=== PATIENT | female | born 1955 | race Caucasian/White ===

== ENCOUNTER 2017-01-19 21:22 | Emergency (ER) | payer OTHER ==
--- NOTE | 2017-01-19 21:47 | PDOC ---
History of Present Illness - General Chief Complaint: Injury Stated Complaint: FALL Time Seen by Provider: 01/19/17 21:35 History Source: Patient Exam Limitations: No Limitations - History of Present Illness Initial Comments: 01/19/17 21:59 61-year-old female Efe HECK to the emergency department [facility]. Patient states she slipped on a patch of water on the floor which caused her to hit her right occipital head against the wall but denied loss of consciousness, dizziness, lightheadedness, headaches, visual disturbance, neck pains, chest pain, shortness of breath, abdominal pains, extremity numbness or tingling sensation. Patient states she has no complaints. Patient had one glass of wine 4 hours ago. Patient is loud and boisterous in the emergency department. Patient insists on going out for a cigarette break. I've advised the patient that due to her one glass of wine this evening and her fall, she will need a CAT scan of her head without contrast. Occurred: reports: just prior to arrival Pain Location: reports: none Method of Injury: Yes: fall ([facility]) Past History - Past Medical History Allergies/Adverse Reactions: Allergies Allergy/AdvReac Type Severity Reaction Status Date / Time Penicillins Allergy Unknown Hives Verified 01/19/17 21:53 Home Medications: Ambulatory Orders Unobtainable [Unobtainable] 01/19/17 Anemia: No Asthma: No Cancer: No Cardiac Disorders: No CVA: No COPD: No CHF: No Dementia: No Diabetes: No GI Disorders: No Disorders: No HTN: No Hypercholesterolemia: No Kidney Stones: No Liver Disease: No Suicide Attempt (Hx): No Seizures: Yes Thyroid Disease: No - Surgical History Abdominal Surgery: Yes (whipple for benign pancreatic pseudocyst) Appendectomy: Yes (AT AGE 18 YRS) Cardiac Surgery: No Cholecystectomy: No Lung Surgery: No Neurologic Surgery: No Orthopedic Surgery: No - Reproductive History PID: No - Psycho/Social/Smoking Cessation Hx Anxiety: Yes Suicidal Ideation: No Smoking Status: Yes Smoking History: Current every day smoker Have you smoked in the past 12 months: Yes Number of Cigarettes Smoked Daily: 50 'Breaking Loose' booklet given: 05/27/15 Hx Alcohol Use: Yes Drug/Substance Use Hx: No Substance Use Type: Alcohol Hx Substance Use Treatment: Yes Trauma Specific PMHX - Complaint Specific PMHX Arthritis: Yes (mid back) Review of Systems - Review of Systems Able to Perform ROS?: Yes Comments:: 01/19/17 22:02 CONSTITUTIONAL: Absent: fever, chills, diaphoresis, generalized weakness, malaise, loss of appetite HEENT: Absent: rhinorrhea, nasal congestion, throat pain, throat swelling, difficulty swallowing, mouth swelling, ear pain, eye pain, visual Changes CARDIOVASCULAR: Absent: chest pain, loss of consciousness, palpitations, irregular heart rate, peripheral edema RESPIRATORY: Absent: cough, shortness of breath, dyspnea with exertion, orthopnea, wheezing, stridor, hemoptysis GASTROINTESTINAL: Absent: abdominal pain, abdominal distension, nausea, vomiting, diarrhea, constipation, melena, hematochezia GENITOURINARY: Absent: dysuria, frequency, urgency, hesitancy, hematuria, flank pain, genital pain MUSCULOSKELETAL: Absent: myalgia, arthralgia, joint swelling SKIN: Absent: rash, itching, pallor HEMATOLOGIC/IMMUNOLOGIC: Absent: easy bleeding, easy bruising, lymphadenopathy, frequent infections ENDOCRINE: Absent: unexplained weight gain, unexplained weight loss, heat intolerance, cold intolerance NEUROLOGIC: Absent: headache, focal weakness or paresthesias, dizziness, unsteady gait, seizure, mental status changes, bladder or bowel incontinence PSYCHIATRIC: Absent: anxiety, depression, suicidal or homicidal ideation, hallucinations. Is the patient limited Thai proficient: No *Physical Exam - Physical Exam Comments: 01/19/17 22:02 GENERAL: Well developed, well nourished. Awake and alert. No acute distress. HEENT: Normocephalic, atraumatic. PERRLA, EOMI. No conjunctival pallor. Sclera are non- icteric. Moist mucous membranes. Oropharynx is clear. NECK: Supple. Full ROM. No JVD. Carotid pulses 2+ and symmetric, without bruits. No thyromegaly. No lymphadenopathy. CARDIOVASCULAR: Regular rate and rhythm. No murmurs, rubs, or gallops. Distal pulses are 2+ and symmetric. PULMONARY: No evidence of respiratory distress. Lungs clear to auscultation bilaterally. No wheezing, rales or rhonchi. ABDOMINAL: Soft. Non-tender. Non-distended. No rebound or guarding. No organomegaly. Normoactive bowel sounds. MUSCULOSKELETAL Normal range of motion at all joints. No bony deformities or tenderness. No CVA tenderness. EXTREMITIES: No cyanosis. No clubbing. No edema. No calf tenderness. SKIN: Warm and dry. Normal capillary refill. No rashes. No jaundice. NEUROLOGICAL: Left scalp hematoma Alert, awake, appropriate. Cranial nerves 2-12 intact. No deficits to light touch and temperature in face, upper extremities and lower extremities. No motor deficits in the in face, upper extremities and lower extremities. Normoreflexic in the upper and lower extremities. Normal speech. Toes are down- going bilaterally. Gait is normal without ataxia. PSYCHIATRIC: Cooperative. Good eye contact. Appropriate mood and affect. *DC/Admit/Observation/Transfer Diagnosis at time of Disposition: Closed head injury Qualifiers: Encounter type: initial encounter Qualified Code(s): S09.90XA - Unspecified injury of head, initial encounter - Discharge Dispostion Disposition: HOME Condition at time of disposition: Stable Admit: No - Referrals Referrals: Anish Rodrigues MD [Staff Physician] - - Patient Instructions Printed Discharge Instructions: DI for Closed Head Injury Additional Instructions: Rest Tylenol as needed for pain Return to the ER for severe/persistent or worsening symptoms
[2017-01-19 21:53] VITALS: BP 133/86; PULSE 80; TEMP 97.6; BMI 22.9
== END 2017-01-20 04:17 | disposition home or self-care (01) ==
LOC: JER 21:22
DX: S09.90XA Unspecified injury of head, initial encounter (principal); W01.0XXA Fall on same level from slipping, tripping and stumbling without subsequent striking against object, initial encounter; Y93.01 Activity, walking, marching and hiking; Y92.89 Other specified places as the place of occurrence of the external cause; F17.210 Nicotine dependence, cigarettes, uncomplicated
CPT/HCPCS: 70450-TC; 99283-25

== ENCOUNTER 2017-01-23 02:35 | Emergency (ER) | payer OTHER ==
[2017-01-23] MEDS ORDERED: OXYCODONE/APAP 5/325MG COMBO TABLET PO ONE (03:36)
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
[2017-01-23] MEDS ORDERED: OXYCODONE/APAP 5/325MG COMBO TABLET ONE (03:46)
[2017-01-23 04:38] VITALS: BP 113/70; PULSE 64; TEMP 97.8; BMI 25.0
== END 2017-01-23 04:40 | disposition home or self-care (01) ==
LOC: JER 02:35
DX: M54.6 Pain in thoracic spine (principal); G89.29 Other chronic pain; C95.10 Chronic leukemia of unspecified cell type not having achieved remission; F17.210 Nicotine dependence, cigarettes, uncomplicated
CPT/HCPCS: 99282-25

== ENCOUNTER 2017-01-23 12:47 | Emergency (ER) | payer OTHER ==
[2017-01-23 12:53] VITALS: BP 123/75; PULSE 90; TEMP 97.9; BMI 25.0
--- NOTE | 2017-01-23 13:43 | PDOC ---
History of Present Illness - General Chief Complaint: Back Pain Stated Complaint: PAIN Time Seen by Provider: 01/23/17 13:20 History Source: Patient - History of Present Illness Occurred: reports: other Pain Location: reports: back Past History - Past Medical History Allergies/Adverse Reactions: Allergies Allergy/AdvReac Type Severity Reaction Status Date / Time Penicillins Allergy Unknown Hives Verified 01/23/17 12:53 Home Medications: Ambulatory Orders Hydroxyzine HCl [Atarax -] 25 mg PO QID 01/23/17 Anemia: No Asthma: No Cancer: Yes (MYLOFIBROSIS LEUKEMIA) Cardiac Disorders: No CVA: No COPD: No CHF: No Dementia: No Diabetes: No GI Disorders: Yes (PEPTIC ULCER) Disorders: No HTN: No Hypercholesterolemia: No Kidney Stones: No Liver Disease: Yes (HEP C) Suicide Attempt (Hx): No Seizures: Yes Thyroid Disease: No - Surgical History Abdominal Surgery: Yes (whipple for benign pancreatic pseudocyst) Appendectomy: Yes (AT AGE 18 YRS) Cardiac Surgery: No Cholecystectomy: Yes Lung Surgery: No Neurologic Surgery: No Orthopedic Surgery: No - Reproductive History PID: No - Psycho/Social/Smoking Cessation Hx Anxiety: Yes Suicidal Ideation: No Smoking Status: Yes Smoking History: Current every day smoker Have you smoked in the past 12 months: Yes Number of Cigarettes Smoked Daily: 10 Information on smoking cessation initiated: No 'Breaking Loose' booklet given: 05/27/15 Hx Alcohol Use: Yes Drug/Substance Use Hx: No Substance Use Type: Alcohol Hx Substance Use Treatment: Yes Trauma Specific PMHX - Complaint Specific PMHX Arthritis: Yes (mid back) Review of Systems - Review of Systems Constitutional: No: Chills, Fever Musculoskeletal: Yes: Back Pain. No: Neck Pain Neurological: No: Numbness, Tingling, Weakness *Physical Exam - Vital Signs Last Vital Signs Temp Pulse Resp BP Pulse Ox 97.9 F 90 16 123/75 95 01/23/17 12:49 01/23/17 12:49 01/23/17 12:49 01/23/17 12:49 01/23/17 12:49 - Physical Exam Comments: 01/23/17 14:04 Pt well appearing and ambulating in ED General Appearance: Yes: Appropriately Dressed. No: Apparent Distress HEENT: positive: Normal Voice Neck: positive: Supple Respiratory/Chest: negative: Respiratory Distress Gastrointestinal/Abdominal: positive: Soft. negative: Tender Musculoskeletal: negative: CVA Tenderness, Vertebral Tenderness Extremity: positive: Normal Inspection Integumentary: positive: Dry, Warm Neurologic: positive: Fully Oriented, Alert, Normal Mood/Affect, Motor Strength /5 Medical Decision Making - Medical Decision Making 01/23/17 13:50 61-year-old female, history of leukemia, chronic back pain, f/u with pain management, on percocet, here requesting refill for her usual lower back pain per pt. Pt denies lower extremity weakness, saddle anesthesia or bowel or bladder incontinence. Of note, patient was seen in the ED several hours ago for same and was discharged and instructed to follow-up with her pain management doctor. Was not given any refills. Pt was Istop by me with multiple rxs for percocet written by different providers, including a rx for 112 tabs of percocet written for pt on 01/11/17 for a 28 day supply. When confronted with information, pt now states she has ran out of meds. I explained to patient that since she has a pain management agreement with her pain management doctor, that we are not allowed to refill her narcotics from the ED. Patient verbalized understanding and was discharged in stable condition to f/ u with pain doc 01/23/17 14:05 *DC/Admit/Observation/Transfer Diagnosis at time of Disposition: Chronic back pain Qualifiers: Back pain location: low back pain Back pain laterality: bilateral Sciatica presence: without sciatica Qualified Code(s): M54.5 - Low back pain - Discharge Dispostion Disposition: HOME Condition at time of disposition: Good - Patient Instructions Additional Instructions: Please follow-up with your specialist for your chronic pain medications. Once you have a pain agreement with a specialist, the ED is not allowed to refill your chronic pain meds
== END 2017-01-23 14:04 | disposition home or self-care (01) ==
LOC: JERFT 12:47
DX: M54.5 Low back pain (principal); G89.29 Other chronic pain; F17.210 Nicotine dependence, cigarettes, uncomplicated; C95.10 Chronic leukemia of unspecified cell type not having achieved remission
CPT/HCPCS: 99281-25

== ENCOUNTER 2018-03-09 14:58 | Emergency (ER) | payer OTHER ==
[2018-03-09 15:06] VITALS: BP 145/56; PULSE 90; TEMP 98.3; BMI 22.6
--- NOTE | 2018-03-09 15:25 | PDOC ---
History of Present Illness - General Chief Complaint: RX Refill Stated Complaint: ABD PAIN Time Seen by Provider: 03/09/18 15:06 History Source: Patient Exam Limitations: No Limitations - History of Present Illness Initial Comments: 03/09/18 15:20 62 yr female brought in by EMS for med refill. Pt states she was suppost to have a delivery from her [email or web address] pharmacy today but they have not shown up, and the patient is unable to reach [facility] to verify the delivery. Pt is asking to be given seroquel, and her pain meds in the ER. Pt is followed by pain management for chronic pain. 03/09/18 15:26 Past History - Past Medical History Allergies/Adverse Reactions: Allergies Allergy/AdvReac Type Severity Reaction Status Date / Time Penicillins Allergy Unknown Hives Verified 03/09/18 15:06 Home Medications: Ambulatory Orders Quetiapine Fumarate [Seroquel -] 200 mg PO HS 03/09/18 Anemia: No Asthma: No Cancer: Yes (MYLOFIBROSIS LEUKEMIA) Cardiac Disorders: No CVA: No COPD: No CHF: No Dementia: No Diabetes: No GI Disorders: Yes (PEPTIC ULCER) Disorders: No HTN: No Hypercholesterolemia: No Kidney Stones: No Liver Disease: Yes (HEP C) Seizures: Yes Thyroid Disease: No - Surgical History Abdominal Surgery: Yes (whipple for benign pancreatic pseudocyst) Appendectomy: Yes (AT AGE 18 YRS) Cardiac Surgery: No Cholecystectomy: Yes Lung Surgery: No Neurologic Surgery: No Orthopedic Surgery: No - Reproductive History PID: No - Suicide/Smoking/Psychosocial Hx Smoking Status: Yes Smoking History: Never smoked Have you smoked in the past 12 months: No Number of Cigarettes Smoked Daily: 10 'Breaking Loose' booklet given: 05/27/15 Hx Alcohol Use: No Drug/Substance Use Hx: No Substance Use Type: Alcohol Hx Substance Use Treatment: Yes Review of Systems - Review of Systems Able to Perform ROS?: Yes Is the patient limited Slovak proficient: No Constitutional: No: Symptoms Reported HEENTM: No: Symptoms Reported Respiratory: No: Symptoms reported Cardiac (ROS): No: Symptoms Reported ABD/GI: No: Symptoms Reported : No: Symptoms Reported Musculoskeletal: No: Symptoms Reported *Physical Exam - Vital Signs Last Vital Signs Temp Pulse Resp BP Pulse Ox 98.3 F 90 18 145/56 99 03/09/18 15:02 03/09/18 15:02 03/09/18 15:02 03/09/18 15:02 03/09/18 15:02 - Physical Exam General Appearance: Yes: Nourished, Appropriately Dressed HEENT: positive: EOMI, SHAI, Normal ENT Inspection Neck: positive: Supple. negative: Tender Respiratory/Chest: positive: Lungs Clear, Normal Breath Sounds. negative: Chest Tender Integumentary: positive: Normal Color, Dry, Warm Neurologic: positive: Fully Oriented, Alert, Normal Mood/Affect, Normal Response , Motor Strength 12/15 Medical Decision Making - Medical Decision Making 03/09/18 15:28 cc: med refill pt states her delivery of meds has not arrived and she came to ER asking to be given the medications in the ER, pt does not want a prescription sent . Pt is unable to recall the name of her pain meds pt states she took seroquel last night I have discussed with patient to call her doctor as well as call [employer] to track the shipment, we are unable to dispense medication in the ER. pt decided to leave the ER without discharge inst *DC/Admit/Observation/Transfer Diagnosis at time of Disposition: No mechanism for timely refill of medication - Discharge Dispostion Disposition: HOME Condition at time of disposition: Good - Referrals Referrals: Teresa Casey MD [Primary Care Provider] - - Patient Instructions Additional Instructions: please call your physician to discuss options if your delivery does not come today for your medication - Post Discharge Activity
== END 2018-03-09 15:40 | disposition home or self-care (01) ==
LOC: JERFT 14:58
DX: Z76.0 Encounter for issue of repeat prescription (principal)
CPT/HCPCS: 99281-25

== ENCOUNTER 2018-07-09 11:45 | Emergency (ER) | payer OTHER ==
[2018-07-09 11:54] VITALS: BP 101/64; PULSE 85; TEMP 97.9; BMI 22.6
--- NOTE | 2018-07-09 13:52 | PDOC ---
History of Present Illness - General Chief Complaint: Injury Stated Complaint: FALL/HIP PAIN Time Seen by Provider: 07/09/18 13:21 History Source: Patient Exam Limitations: No Limitations - History of Present Illness Initial Comments: 07/09/18 13:44 62 yo female pmh of chronic back pain (on 40mg percocet daily) leukemia (on PO chemo), prior alcohol dependance, pancreatitis, HCV, depression, anxiety, bipolar (on seroquel) presents to the ED with right hip pain. Patient is not a reliable historian and hr story is scattered. Admits to not taking her psych medications consistently. Complains of difficulty ambulating after "[facility] made me walk home with pins in my leg yesterday." States she slipped and fell hitting her right elbow and right hip on her way home yesterday and now has pain with all ROM and weight bearing of the right hip. Past History - Past Medical History Allergies/Adverse Reactions: Allergies Allergy/AdvReac Type Severity Reaction Status Date / Time Penicillins Allergy Unknown Hives Verified 03/09/18 15:06 Home Medications: Ambulatory Orders Quetiapine Fumarate [Seroquel -] 200 mg PO HS 03/09/18 Anemia: No Asthma: No Cancer: Yes (MYLOFIBROSIS LEUKEMIA) Cardiac Disorders: No CVA: No COPD: No CHF: No Dementia: No Diabetes: No GI Disorders: Yes (PEPTIC ULCER) Disorders: No HTN: No Hypercholesterolemia: No Kidney Stones: No Liver Disease: Yes (HEP C) Seizures: Yes Thyroid Disease: No - Surgical History Abdominal Surgery: Yes (whipple for benign pancreatic pseudocyst) Appendectomy: Yes (AT AGE 18 YRS) Cardiac Surgery: No Cholecystectomy: Yes Lung Surgery: No Neurologic Surgery: No Orthopedic Surgery: No - Reproductive History PID: No - Suicide/Smoking/Psychosocial Hx Smoking Status: Yes Smoking History: Current every day smoker Have you smoked in the past 12 months: No Number of Cigarettes Smoked Daily: 10 Information on smoking cessation initiated: No 'Breaking Loose' booklet given: 05/27/15 Hx Alcohol Use: No Drug/Substance Use Hx: No Substance Use Type: Alcohol Hx Substance Use Treatment: Yes *Physical Exam - Vital Signs Last Vital Signs Temp Pulse Resp BP Pulse Ox 97.9 F 85 16 101/64 98 07/09/18 11:51 07/09/18 11:51 07/09/18 11:51 07/09/18 11:51 07/09/18 11:51 Moderate Sedation - Procedure Monitoring Vital Signs: Procedure Monitoring Vital Signs Temperature 97.9 F 07/09/18 11:51 Pulse Rate 85 07/09/18 11:51 Respiratory Rate 16 07/09/18 11:51 Blood Pressure 101/64 07/09/18 11:51 O2 Sat by Pulse Oximetry (%) 98 07/09/18 11:51 Medical Decision Making - Medical Decision Making 07/09/18 15:16 62 yo female pmh right total hip replacement with recent fall and right hip pain. Pt states she is unable to ambulate but in the ED is seen ambulating without instability. Received home dose of percocet 5-325 and seroquel. Right hip/pelvis and femur x ray shows non displaced right hip hardware with fractures Patient D/C home with PCP follow up and strict return precautions *DC/Admit/Observation/Transfer Diagnosis at time of Disposition: Hip pain Qualifiers: Laterality: right Qualified Code(s): M25.551 - Pain in right hip - Discharge Dispostion Disposition: HOME Condition at time of disposition: Stable Decision to Admit order: No - Referrals Referrals: Teresa Casey MD [Primary Care Provider] - - Patient Instructions Printed Discharge Instructions: How to Prevent Falls, DI for Hip Pain Additional Instructions: Please follow up with your Primary Care Doctor within the next 24-48 hours for your hip pain. Return to the emergency room for new or worsening symptoms including but not limited to: inability to walk, severe pain with weakness or sensory changes in your right thigh and leg, new fall. Continue taking your prescribed percocet for pain. Thank you - Post Discharge Activity
[2018-07-09] MEDS ORDERED: QUEtiapine FUMARATE 100 MG TABLET (FP) ONE (14:14)
--- NOTE | 2018-07-09 14:30 | PDOC ---
Attending Attestation - Resident Resident Name: Odin Montez - ED Attending Attestation I have performed the following: I have examined & evaluated the patient, The case was reviewed & discussed with the resident, I agree w/resident's findings & plan - HPI HPI: 07/09/18 14:28 62-year-old female presents for additional evaluation/second opinion of right hip pain status post trip and fall last night. Patient tripped on an uneven sidewalk, landing on her right elbow and right hip, no head injury or loss of consciousness. The patient presented to [facility] ED weren't x-ray of the right hip was performed and she was discharged. Presents now complaining of persistent pain to the right hip and difficulty ambulating. At baseline, patient ambulates with cane/walker secondary to history of right hip fracture status post surgical repair. No other complaints, denies any headache or right elbow pain, no motor or sensory deficit. - Physicial Exam PE: 07/09/18 14:29 Vital signs normal Slightly unkempt, sitting in wheelchair. Initially aggressive with staff, now more compliant Exam is atraumatic except for: Bruising along the right elbow without focal bony tenderness, no joint effusion, full range of motion with full strength, neurovascularly intact. Right hip tender to palpation laterally without bruising or soft tissue swelling, healed incisional scar. - Medical Decision Making 07/09/18 14:30 62-year-old female with mechanical trip and fall last night, right elbow and right hip injury. Contusion to right elbow without evidence of fracture or dislocation, neurovascularly intact. Persistent tenderness and pain with ambulation of the right hip, rule out occult fracture. Repeat right hip x-ray, if negative will perform CT Pain control Reassess
== END 2018-07-09 16:45 | disposition home or self-care (01) ==
LOC: JERFT 11:45 → JER 11:45
DX: M25.551 Pain in right hip (principal); Z96.641 Presence of right artificial hip joint; M54.5 Low back pain; C94.80 Other specified leukemias not having achieved remission; B18.2 Chronic viral hepatitis C; F31.9 Bipolar disorder, unspecified; F41.8 Other specified anxiety disorders; Z86.69 Personal history of other diseases of the nervous system and sense organs
CPT/HCPCS: 73523-TC-FY; 73552-TC-RT-FY; 99281-25

== ENCOUNTER → 2018-07-10 | Emergency (ER) | payer OTHER ==
[2018-07-10 13:45] VITALS: BP 125/83; PULSE 99; TEMP 98.2; BMI 21.1
--- NOTE | 2018-07-10 17:01 | PDOC ---
History of Present Illness <Lacey Emmanuel - Last Filed: 07/10/18 17:56> - General History Source: Patient Exam Limitations: No Limitations - History of Present Illness Initial Comments: 07/10/18 17:23 62 year old female with PMH leukemia, HCV, depression, anxiety, bipolar disorder , arthritis, pancreatitis, chronic low back pain presented to ED for right hip pain since yesterday. Pt reported she tripped and fell yesterday because of slippery ice, falling onto her right hip and right elbow. She was seen and evaluated in [facility] ED yesterday, right hip and right femur XR negative for acute fracture/dislocation. She stated that she usually takes 2 percocet every 6 hours for her arthritis and leukemia pain, but that she ran out two weeks ago because her oncologist only writes her a prescription for 2 weeks at a time. <Celi Santiago - Last Filed: 07/10/18 19:01> - General Chief Complaint: Back Pain Stated Complaint: BACK PAIN Time Seen by Provider: 07/10/18 17:00 Past History <Lacey Emmanuel - Last Filed: 07/10/18 17:56> - Past Medical History Anemia: No Asthma: No Cancer: Yes (MYLOFIBROSIS LEUKEMIA) Cardiac Disorders: No CVA: No COPD: No CHF: No Dementia: No Diabetes: No GI Disorders: Yes (PEPTIC ULCER) Disorders: No HTN: No Hypercholesterolemia: No Kidney Stones: No Liver Disease: Yes (HEP C) Seizures: Yes Thyroid Disease: No - Surgical History Abdominal Surgery: Yes (whipple for benign pancreatic pseudocyst) Appendectomy: Yes (AT AGE 18 YRS) Cardiac Surgery: No Cholecystectomy: Yes Lung Surgery: No Neurologic Surgery: No Orthopedic Surgery: No - Reproductive History PID: No - Suicide/Smoking/Psychosocial Hx Smoking Status: Yes Smoking History: Current every day smoker Have you smoked in the past 12 months: No Number of Cigarettes Smoked Daily: 10 Information on smoking cessation initiated: Yes 'Breaking Loose' booklet given: 05/27/15 Hx Alcohol Use: No Drug/Substance Use Hx: No Substance Use Type: Alcohol Hx Substance Use Treatment: Yes <Celi Santiago - Last Filed: 07/10/18 19:01> - Past Medical History Allergies/Adverse Reactions: Allergies Allergy/AdvReac Type Severity Reaction Status Date / Time Penicillins Allergy Unknown Hives Verified 07/10/18 13:45 Home Medications: Ambulatory Orders Quetiapine Fumarate [Seroquel -] 200 mg PO HS 03/09/18 Oxycodone HCl/Acetaminophen [Percocet 5-325 mg Tablet] 1 tab PO Q6H PRN #3 tablet MDD 4 tabs a day 07/10/18 Review of Systems - Review of Systems Able to Perform ROS?: Yes Comments:: 07/10/18 17:35 General: denied fever, chills, night sweats, generalized weakness. HEENT: denied sore throat, rhinorrhea, ear pain. Heart: denied chest pain, palpitations, syncope, lower extremity swelling, diaphoresis. Respiratory: denied shortness of breath, cough, sputum production, hemoptysis. Abdomen: denied abdominal pain, nausea, vomiting, diarrhea, constipation, blood in stool. : denied dysuria, increased urinary frequency, hematuria, urinary incontinence , flank pain. Back: denied back pain. Musculoskeletal: admitted to right hip pain. Neurological: denied headache, dizziness, numbness, tingling, weakness. Skin: denied rash, laceration, abrasion. <Celi Santiago - Last Filed: 07/10/18 19:01> *Physical Exam - Vital Signs Last Vital Signs Temp Pulse Resp BP Pulse Ox 98.2 F 99 H 18 125/83 95 07/10/18 13:40 07/10/18 13:40 07/10/18 13:40 07/10/18 13:40 07/10/18 13:40 <Lacey Emmanuel - Last Filed: 07/10/18 17:56> - Vital Signs Last Vital Signs Temp Pulse Resp BP Pulse Ox 98.2 F 99 H 18 125/83 95 07/10/18 13:40 07/10/18 13:40 07/10/18 13:40 07/10/18 13:40 07/10/18 13:40 - Physical Exam Comments: 07/10/18 17:32 Constitutional: Well-nourished, Well-developed, appearing stated age. HEENT: head is normocephalic, atraumatic. EOMI. PERRLA. Neck: supple. Full ROM. Heart: regular rhythm. no murmurs, rubs or gallops. Lungs: clear to auscultation bilaterally. no crackles, rhonchi or wheezing. no stridor. Abdomen: soft, nontender. normal bowel sounds. no rebound, guarding, masses. Hips: tenderness to palpation of right hip. Extremities: 2+ DSP pulse bilaterally. 2+ radial pulse bilaterally. pt is able to bear weight and walk unassisted. full sensation to bilateral lower extremities. No lower extremity edema. full ROM right elbow, no swelling. Neurological: CN 2-12 grossly intact. Moves all four extremities. Psych: awake, alert, oriented x3. Follows commands. Answers questions appropriately. <Celi Santiago - Last Filed: 07/10/18 19:01> Moderate Sedation - Procedure Monitoring Vital Signs: Procedure Monitoring Vital Signs Temperature 98.2 F 07/10/18 13:40 Pulse Rate 99 H 07/10/18 13:40 Respiratory Rate 18 07/10/18 13:40 Blood Pressure 125/83 07/10/18 13:40 O2 Sat by Pulse Oximetry (%) 95 07/10/18 13:40 <Lacey Emmanuel - Last Filed: 07/10/18 17:56> - Procedure Monitoring Vital Signs: Procedure Monitoring Vital Signs Temperature 98.2 F 07/10/18 13:40 Pulse Rate 99 H 07/10/18 13:40 Respiratory Rate 18 07/10/18 13:40 Blood Pressure 125/83 07/10/18 13:40 O2 Sat by Pulse Oximetry (%) 95 07/10/18 13:40 <Celi Santiago - Last Filed: 07/10/18 19:01> ED Treatment Course - Medications Given in the ED: ED Medications Discontinued Medications Generic Name Dose Route Start Last Admin Trade Name Freq PRN Reason Stop Dose Admin Oxycodone/Acetaminophen 1 combo 07/10/18 17:40 07/10/18 17:45 Percocet 5/325 - PO 07/10/18 17:41 1 combo ONCE ONE Administration <Lacey Emmanuel - Last Filed: 07/10/18 17:56> Medical Decision Making - Medical Decision Making 07/10/18 17:32 62 year old female with above PMH presented for continuing right hip pain s/p trip and fall yesterday. Initial Vital Signs Temp Pulse Resp BP Pulse Ox 98.2 F 99 H 18 125/83 95 07/10/18 13:40 07/10/18 13:40 07/10/18 13:40 07/10/18 13:40 07/10/18 13:40 Afebrile. No tachycardia. No tachypnea. No hypotension. No hypoxia on room air. Continuing right hip pain and reported difficulty ambulating concerning for fracture missed on prior XR. Pt was offered CT of right hip and refused. Pt stated she just wants pain control. 1 percocet ordered. Will observe. Will prescribe 3 percocets for patient to use until she is seen and evaluated by her oncologist, who prescribes her home percocet. Pt stated she will follow up with her doctor for further pain management. 07/10/18 18:07 Pt eloped after being medicated prior to discharge. <Celi Santiago - Last Filed: 07/10/18 19:01> *DC/Admit/Observation/Transfer - Discharge Dispostion Decision to Admit order: No <Lacey Emmanuel - Last Filed: 07/10/18 17:56> - Discharge Dispostion Decision to Admit order: No <Celi Santiago - Last Filed: 07/10/18 19:01> Diagnosis at time of Disposition: Hip pain - Discharge Dispostion Disposition: ELOPED Condition at time of disposition: Stable - Prescriptions Prescriptions: Oxycodone HCl/Acetaminophen [Percocet 5-325 mg Tablet] 1 tab PO Q6H PRN #3 tablet MDD 4 tabs a day PRN Reason: Pain - Referrals Referrals: Rayo Bobby MD [Staff Physician] - - Patient Instructions Printed Discharge Instructions: DI for Hip Pain Additional Instructions: Please call your PMD in the morning to arrange for follow-up. Please follow up with the orthopedist. Please take all medication as prescribed. As discussed your may need further imaging of your hip (which you did not want to do today) for further evaluation of your hip pain.
--- NOTE | 2018-07-10 17:16 | PDOC ---
Attending Attestation - HPI HPI: 07/10/18 17:52 The patient is a 62-year-old female with past medical history significant for Myelofibrosis leukemia, HCV, depression, anxiety, bipolar disorder, arthritis, pancreatitis presents to the emergency department with pain. The patient reports she suffered a fall on Sunday when she was crossing the street. The patient states she fell on her R. elbow and hip. The patient was seen at the ED on 07/09/2018, where she had imaging done with unremarkable for dislocation and fractures. The patient presents secondary to pain, states she ran out of pain medication several days back. The patient is requesting to have pain medication. The patient reports she takes 325 mg of Oxycodone with Tylenol for pain management. Denies fever, chills, back pain, urinary/bowel incontinence. Allergies: Penicillins Social history: 7 cigarettes daily since the age 12 Alcohol use reported. Surgical history: Appendectomy, Cholecystectomy, Whipple for benign pancreatic pseudocyst, and R. hip replacement (w/2 screws) PCP: Teresa Casey MD - Physicial Exam PE: 07/10/18 17:58 GENERAL: Awake, alert, and fully oriented, in no acute distress HEAD: No signs of trauma EYES: PERRLA, EOMI, sclera anicteric, conjunctiva clear ENT: Auricles normal inspection, hearing grossly normal, nares patent, oropharynx clear without exudates. Moist mucosa NECK: Normal ROM, supple, no lymphadenopathy, JVD, or masses LUNGS: +Smokers cough. Breath sounds equal, clear to auscultation bilaterally. No wheezes, and no crackles HEART: Regular rate and rhythm, normal S1 and S2, no murmurs, rubs or gallops ABDOMEN: Soft, nontender, normoactive bowel sounds. No guarding, no rebound. No masses EXTREMITIES: No midline CT or L spine tenderness, well healed R. lateral hip without fluctuance or drainage of the area without ecchymosis. Normal range of motion, no edema. No clubbing or cyanosis. No cords, erythema, or tenderness NEUROLOGICAL: Cranial nerves II through XII grossly intact. Normal speech, ambulated with a limp. Neurovascularly intact in the legs. SKIN: Warm, Dry, normal turgor, no rashes or lesions noted. - Medical Decision Making 07/10/18 17:40 The patient was informed of the risk and was advised to get a CT imaging of the hip. The patient refused the CT imaging of the hip. The patient state she wants 3 tablets of pain medication and wants to be discharged home. The patient is made aware of the risk. The patient states she will call her PCP and oncologist to follow up. The patient is instructed to return to the ER if the pain worsens. 07/10/18 17:59 Documentation prepared by Nguyen Patton, acting as medical insurance claims specialist for Lacey Emmanuel DO. <Nguyen Patton - Last Filed: 07/10/18 17:58> - Resident Resident Name: Celi Santiago - ED Attending Attestation I have performed the following: I have examined & evaluated the patient, The case was reviewed & discussed with the resident, I agree w/resident's findings & plan, Exceptions are as noted - Medical Decision Making 07/10/18 17:16 I, Dr. Lacey Emmanuel DO, attest that this document has been prepared under my direction and personally reviewed by me in its entirety. I further attest, that it accurately reflects all work, treatment, procedures and medical decision -making performed by me. 07/10/18 17:59 a/p: 62yo male with a mechanical fall on sunday - had imaging that was negative for hip fracture -still with pain to right hip -ran out of percocet and requesting 3 tabs for pain control -pt ambulates with a limp, but can ambulate -discussed CT imaging in detail with the patient tonight - but she refuses imaging -pt denies back pain -no loss of control or her bowel or bladder -no paresthesias -pain to R hip -no signs/symptoms of caude equina- no midline ttp, no step offs or deformities -discussed follow up with orthopedics -pt states all she wants is percocet for pain and will call her PMD/oncologist in the AM to arrange for followup -neuro intact <Lacey Emmanuel - Last Filed: 07/10/18 18:01>
== END | disposition home or self-care (01) ==
LOC: JER 13:38
DX: M25.551 Pain in right hip (principal); M54.5 Low back pain; G89.29 Other chronic pain
CPT/HCPCS: 99281-25

== ENCOUNTER 2018-09-10 18:00 | Emergency (ER) | payer OTHER ==
[2018-09-10 18:26] VITALS: TEMP 98.5; BMI 20.4
--- NOTE | 2018-09-10 19:26 | PDOC ---
Attending Attestation - HPI HPI: 09/10/18 20:15 The patient is a 63 year old female, with a significant past medical history of Myelofibrosis leukemia, HCV, depression, anxiety, bipolar disorder, arthritis, and pancreatitis who presents to the emergency department via EMS complaining of lower back pain due to a fall. The patient is unable to provide any further history due to AMS. Allergies: Penicillins Past surgical history: Appendectomy, Cholecystectomy, Whipple for benign pancreatic pseudocyst, and R. hip replacement (w/2 screws). Social history: Current smoker (7 cigarettes daily since the age of 12), alcohol use reported. PCP: Dr. Casey - Physicial Exam PE: 09/10/18 20:15 Agree with resident exam - Medical Decision Making 09/10/18 23:[address] was reviewed by Dr. Gerber and over read by radiology. Impression: No CT evidence of acute intracranial pathology. There has been no definite interval change in comparison to prior CT study of 08/21/2016. <Fidelia Denise - Last Filed: 09/10/18 23:20> - Resident Resident Name: Jared Persaud - ED Attending Attestation I have performed the following: I have examined & evaluated the patient, The case was reviewed & discussed with the resident, I agree w/resident's findings & plan - HPI HPI: 09/10/18 23:26 On further questioning patient was unable to give details regarding a fall. - Medical Decision Making 09/10/18 23:24 63-year-old female is admitted nonintentional overdose of sleeping medication Patient now awake alert and oriented 4 with no additional complaints on reevaluation at 11:20 PM EKG showed a normal sinus rhythm at 86 bpm with no acute ST elevations Rhythm strip shows a sinus rhythm at 80-85 bpm Plan for discharge home pending imaging results and urinalysis <Brenda Gebrer - Last Filed: 09/10/18 23:27> Attestations - Attestations 09/10/18 19:52 Documentation prepared by Fidelia Denise, acting as medical technician for Brenda Gerber DO, MD <Fidelia Denise - Last Filed: 09/10/18 23:20>
--- NOTE | 2018-09-10 20:01 | PDOC ---
History of Present Illness - General Chief Complaint: Injury Stated Complaint: FALL Time Seen by Provider: 09/10/18 19:13 History Source: Patient Exam Limitations: Clinical Condition - History of Present Illness Initial Comments: 09/10/18 21:00 Patient is a 63F with history of anxiety, depression, leukemia, HCV, arthritis, pancreatitis and low back pain here today after a fall. EMS reports that the patient took too many of her "sleeping pills". Not available for further history during my evaluation. Patient responds to her name, but is lethargic and does not give a history. Denies pain anywhere. Past History - Past Medical History Allergies/Adverse Reactions: Allergies Allergy/AdvReac Type Severity Reaction Status Date / Time Penicillins Allergy Unknown Hives Verified 07/10/18 13:45 Home Medications: Ambulatory Orders Quetiapine Fumarate [Seroquel -] 200 mg PO HS 03/09/18 Oxycodone HCl/Acetaminophen [Percocet 5-325 mg Tablet] 1 tab PO Q6H PRN #3 tablet MDD 4 tabs a day 07/10/18 Anemia: No Asthma: No Cancer: Yes (MYLOFIBROSIS LEUKEMIA) Cardiac Disorders: No CVA: No COPD: No CHF: No Dementia: No Diabetes: No GI Disorders: Yes (PEPTIC ULCER) Disorders: No HTN: No Hypercholesterolemia: No Kidney Stones: No Liver Disease: Yes (HEP C) Seizures: Yes Thyroid Disease: No - Surgical History Abdominal Surgery: Yes (whipple for benign pancreatic pseudocyst) Appendectomy: Yes (AT AGE 18 YRS) Cardiac Surgery: No Cholecystectomy: Yes Lung Surgery: No Neurologic Surgery: No Orthopedic Surgery: No - Reproductive History PID: No - Suicide/Smoking/Psychosocial Hx Smoking Status: Yes Smoking History: Unknown if ever smoked Have you smoked in the past 12 months: No Number of Cigarettes Smoked Daily: 10 Information on smoking cessation initiated: No 'Breaking Loose' booklet given: 05/27/15 Hx Alcohol Use: No Drug/Substance Use Hx: No Substance Use Type: Alcohol Hx Substance Use Treatment: Yes Review of Systems - Review of Systems Able to Perform ROS?: No (2/2 clinical condition) *Physical Exam - Vital Signs Last Vital Signs Temp Pulse Resp BP Pulse Ox 98.5 F 98 H 18 137/68 98 09/10/18 18:19 09/10/18 18:19 09/10/18 18:19 09/10/18 18:19 09/10/18 18:19 - Physical Exam Comments: 09/10/18 21:02 GENERAL: Arousable but lethargic HEAD: No signs of trauma, normocephalic, atraumatic EYES: PERRLA 5mm, EOMI, sclera anicteric, conjunctiva clear ENT: Auricles normal inspection, hearing grossly normal, nares patent, oropharynx clear without exudates. Moist mucosa. Tongue laceration midline NECK: Normal ROM, supple, no lymphadenopathy, JVD, or masses, no midline tenderness LUNGS: No distress, clear to auscultation bilaterally HEART: Regular rate and rhythm, normal S1 and S2, no murmurs, rubs or gallops, peripheral pulses normal and equal bilaterally. ABDOMEN: Soft, nontender, normoactive bowel sounds. No guarding, no rebound. No masses CHEST: Port on R side, no midline tenderness EXTREMITIES: Bruising on left arm, Normal range of motion, no edema. No clubbing or cyanosis. NEUROLOGICAL: Cranial nerves II through XII grossly intact. Slurred speech, moves all extremities Moderate Sedation - Procedure Monitoring Vital Signs: Procedure Monitoring Vital Signs Temperature 98.5 F 09/10/18 18:19 Pulse Rate 98 H 09/10/18 18:19 Respiratory Rate 18 09/10/18 18:19 Blood Pressure 137/68 09/10/18 18:19 O2 Sat by Pulse Oximetry (%) 98 09/10/18 18:19 ED Treatment Course - LABORATORY CBC & Chemistry Diagram: 09/10/18 20:28 09/10/18 20:28 - RADIOLOGY Radiology Studies Ordered: Category Date Time Status ABDOMEN & PELVIS CT WITH CONTR [CT] Stat CT Scan 09/10/18 19:[address] W/O CONTR [CT] Stat CT Scan 09/10/18 19:[address] WITH CONTRAST [CT] Stat CT Scan 09/10/18 19:[address] WITHOUT CONTRAST [CT] Stat CT Scan 09/10/18 19:25 Ordered CHEST X-RAY PORTABLE* [RAD] Stat Radiology 09/10/18 19:25 Ordered Medical Decision Making - Medical Decision Making 09/10/18 21:04 Patient is 63F with history of leukemia, hcv, dep/anx, arthritis, low back pain here today with AMS, fall. Vitals normal and stable. DDx is broad due to limited history, includes but is not limited to: overdose, seizure, syncope, hepatic encephalopathy. Will ponce-scan for ?trauma. 09/11/18 00:08 Laboratory Tests 09/10/18 09/10/18 09/10/18 20:28 20:28 20:28 WBC 10.3 H Hgb 11.4 Plt Count 332 Blast Cells % (Manual) 2 H D BUN 19 H Creatinine 1.0 Troponin I < 0.02 Salicylates 4.6 Acetaminophen < 2.0 L Alcohol, Quantitative < 3.0 CBC reassuring, does show evidence of leukemia. CMP normal. Tox normal. EKG shows normal sinus rhythm with rate of 86. No st elevations/depressions. Normal axis. Normal intervals. No significant t wave abnormalities. CXR clear. CT head/cervical spine show no acute issues. CT C/A/P shows chronic fractures of spine, no acute issues. Patient reassessed, now fully alert and oriented giving complete history. Believe patient took too much medication. No evidence of significant trauma. Given return precautions and instructed to be more careful with her medications. Discharged home. *DC/Admit/Observation/Transfer Diagnosis at time of Disposition: Fall - Discharge Dispostion Disposition: HOME Condition at time of disposition: Good Decision to Admit order: No - Referrals - Patient Instructions Printed Discharge Instructions: How to Prevent Falls Additional Instructions: Please be careful with your medication, as it likely caused you to fall today. Please return if you have any new, worsening or concerning conditions, especially increasing pain, fever, or shortness of breath. Please follow up with your primary care provider this week. - Post Discharge Activity
[2018-09-10 20:45] LABS: BASO % 0.8 % (0-2.0); EOS % 0.6 % (0-4.5); HEMATOCRIT 33.8 % (32.4-45.2); HEMOGLOBIN 11.4 GM/dL (10.7-15.3); LYMPH % 10.5 % (8-40); MCH 32.5 pg (25.7-33.7); MCHC 33.9 g/dl (32.0-36.0); MEAN PLT VOLUME 7.9 fl (7.5-11.1); MONO % 5.5 % (3.8-10.2); NEUT % 82.6 % (42.8-82.8); PLATELET COUNT 332 K/MM3 (134-434); RBC 3.52 M/mm3 (3.60-5.2); WHITE BLOOD COUNT 10.3 K/mm3 (4.0-10.0)
[2018-09-10 20:50] LABS: VENOUS PC02 39.5 mmHg (38-52); VENOUS PH 7.38 (7.32-7.42)
[2018-09-10 21:19] LABS: PLATELET ESTIMATE ADEQUATE
[2018-09-10 21:28] LABS: INR 0.93 (0.83-1.09)
[2018-09-10 21:43] LABS: ALBUMIN 4.5 g/dl (3.4-5.0); ALK PHOS 105 U/L (45-117); ANION GAP 9 MMOL/L (8-16); BILIRUBIN,TOTAL 0.4 mg/dL (0.2-1); BLOOD UREA NITROGEN 19 mg/dL (7-18); CHLORIDE 109 mmol/L (98-107); CO2 22 mmol/L (21-32); GLUCOSE,RANDOM 100 mg/dL (74-106); MAGNESIUM 2.4 mg/dL (1.8-2.4); POTASSIUM 4.3 mmol/L (3.5-5.1); SGOT/AST 23 U/L (15-37); SGPT/ALT 21 U/L (13-61); SODIUM 141 mmol/L (136-145)
[2018-09-11 03:32] VITALS: BP 128/78; PULSE 88
--- NOTE | 2018-09-11 15:01 | EKG ---
Test Reason : Blood Pressure : / mmHG Vent. Rate : 086 BPM Atrial Rate : 086 BPM P-R Int : 194 ms QRS Dur : 096 ms QT Int : 396 ms P-R-T Axes : 066 078 068 degrees QTc Int : 473 ms NORMAL SINUS RHYTHM NORMAL ECG WHEN COMPARED WITH ECG OF 06-MAR-2018 03:49, QRS DURATION HAS INCREASED Confirmed by JOHN PAUL MARADIAGA MD ([id number]) on 09/11/2018 3:01:00 PM Referred By: Confirmed By:JOHN PAUL MARADIAGA MD
== END 2018-09-11 03:33 | disposition home or self-care (01) ==
LOC: JER 18:00
DX: R41.82 Altered mental status, unspecified (principal); W18.39XA Other fall on same level, initial encounter; Y93.89 Activity, other specified; Y92.098 Other place in other non-institutional residence as the place of occurrence of the external cause; Y99.8 Other external cause status; Z85.6 Personal history of leukemia; Z86.19 Personal history of other infectious and parasitic diseases; Z87.19 Personal history of other diseases of the digestive system; Z86.59 Personal history of other mental and behavioral disorders
CPT/HCPCS: 36415; 70450-TC; 71045-TC-FY; 71260-TC; 72125-TC; 74177-TC; 80053; 80307; 82140; 82550; 82553; 82803; 83735; 84484; 85025; 85610; 93005; 93010; 99282-25

== ENCOUNTER 2018-09-11 08:56 | Inpatient (IN) | payer OTHER ==
[2018-09-11 09:17] VITALS: BMI 26.4
--- NOTE | 2018-09-11 09:31 | PDOC ---
History of Present Illness - General Chief Complaint: Injury Stated Complaint: FALL Time Seen by Provider: 09/11/18 09:31 History Source: Patient Exam Limitations: No Limitations Past History - Past Medical History Allergies/Adverse Reactions: Allergies Allergy/AdvReac Type Severity Reaction Status Date / Time Penicillins Allergy Unknown Hives Verified 07/10/18 13:45 Home Medications: Ambulatory Orders Quetiapine Fumarate [Seroquel -] 200 mg PO HS 03/09/18 Oxycodone HCl/Acetaminophen [Percocet 5-325 mg Tablet] 1 tab PO Q6H PRN #3 tablet MDD 4 tabs a day 07/10/18 Anemia: No Asthma: No Cancer: Yes (MYLOFIBROSIS LEUKEMIA) Cardiac Disorders: No CVA: No COPD: No CHF: No Dementia: No Diabetes: No GI Disorders: Yes (PEPTIC ULCER) Disorders: No HTN: No Hypercholesterolemia: No Kidney Stones: No Liver Disease: Yes (HEP C) Seizures: Yes Thyroid Disease: No - Surgical History Abdominal Surgery: Yes (whipple for benign pancreatic pseudocyst) Appendectomy: Yes (AT AGE 18 YRS) Cardiac Surgery: No Cholecystectomy: Yes Lung Surgery: No Neurologic Surgery: No Orthopedic Surgery: No - Reproductive History PID: No - Suicide/Smoking/Psychosocial Hx Smoking Status: Yes Smoking History: Unknown if ever smoked Have you smoked in the past 12 months: No Number of Cigarettes Smoked Daily: 10 'Breaking Loose' booklet given: 05/27/15 Hx Alcohol Use: No Drug/Substance Use Hx: No Substance Use Type: Alcohol Hx Substance Use Treatment: Yes *Physical Exam - Vital Signs Last Vital Signs Temp Pulse Resp BP Pulse Ox 98 F 87 18 130/73 98 09/11/18 09:16 09/11/18 09:16 09/11/18 09:16 09/11/18 09:16 09/11/18 09:16 Moderate Sedation - Procedure Monitoring Vital Signs: Procedure Monitoring Vital Signs Temperature 98 F 09/11/18 09:16 Pulse Rate 87 09/11/18 09:16 Respiratory Rate 18 09/11/18 09:16 Blood Pressure 130/73 09/11/18 09:16 O2 Sat by Pulse Oximetry (%) 98 09/11/18 09:16
--- NOTE | 2018-09-11 09:44 | PDOC ---
History of Present Illness - History of Present Illness Initial Comments: Patient is a 63 year old female with history of anxiety, depression, bipolar disorder, Myelofibrosis leukemia, HCV, arthritis, pancreatitis and low back pain who was BIBA from home and returns today after a fall. Patient was seen in our ER last night for lower back pain s/p fall after taking too many sleeping pills. Today she states that she fell again sometime after she was discharged. Patient is a poor historian and difficult to understand. Denies hitting head? Allergies: Penicillins Past surgical history: Appendectomy, Cholecystectomy, Whipple for benign pancreatic pseudocyst, and R. hip replacement (w/2 screws). Social history: Current smoker (7 cigarettes daily since the age of 12), alcohol use reported. PCP: Dr. Casey <Ying Alcantara - Last Filed: 09/11/18 12:09> <Berny De Los Santos - Last Filed: 09/11/18 16:49> - General Chief Complaint: Injury Stated Complaint: FALL Time Seen by Provider: 09/11/18 09:31 Past History <Ying Alcantara - Last Filed: 09/11/18 12:09> - Past Medical History Anemia: No Asthma: No Cancer: Yes (MYLOFIBROSIS LEUKEMIA) Cardiac Disorders: No CVA: No COPD: No CHF: No Dementia: No Diabetes: No GI Disorders: Yes (PEPTIC ULCER) Disorders: No HTN: No Hypercholesterolemia: No Kidney Stones: No Liver Disease: Yes (HEP C) Seizures: Yes Thyroid Disease: No - Surgical History Abdominal Surgery: Yes (whipple for benign pancreatic pseudocyst) Appendectomy: Yes (AT AGE 18 YRS) Cardiac Surgery: No Cholecystectomy: Yes Lung Surgery: No Neurologic Surgery: No Orthopedic Surgery: No - Reproductive History PID: No - Suicide/Smoking/Psychosocial Hx Smoking Status: Yes Smoking History: Unknown if ever smoked Have you smoked in the past 12 months: No Number of Cigarettes Smoked Daily: 10 'Breaking Loose' booklet given: 05/27/15 Hx Alcohol Use: No Drug/Substance Use Hx: No Substance Use Type: Alcohol Hx Substance Use Treatment: Yes <Berny De Los Santos - Last Filed: 09/11/18 16:49> - Past Medical History Allergies/Adverse Reactions: Allergies Allergy/AdvReac Type Severity Reaction Status Date / Time Penicillins Allergy Unknown Hives Verified 07/10/18 13:45 Home Medications: Ambulatory Orders Quetiapine Fumarate [Seroquel -] 200 mg PO HS 03/09/18 Oxycodone HCl/Acetaminophen [Percocet 5-325 mg Tablet] 1 tab PO Q6H PRN #3 tablet MDD 4 tabs a day 07/10/18 Review of Systems - Review of Systems Comments:: CONSTITUTIONAL: No fever, no chills, no fatigue EYES: No visual changes ENT: No ear pain, no sore throat CARDIOVASCULAR: No chest pain, no palpitations RESPIRATORY: No cough, no SOB GI: No abdominal pain, no nausea, no vomiting, no constipation, no diarrhea GENITOURINARY: No dysuria, no frequency, no hematuria MUSKULOSKELETAL: +back pain, no joint pain, no myalgias SKIN: No rash NEURO: No headache PATIENT IS A POOR HISTORIAN, DIFFICULT TO UNDERSTAND! <Ying Alcantara - Last Filed: 09/11/18 12:09> *Physical Exam - Vital Signs Last Vital Signs Temp Pulse Resp BP Pulse Ox 98 F 87 18 130/73 98 09/11/18 09:16 09/11/18 09:16 09/11/18 09:16 09/11/18 09:16 09/11/18 09:16 <Ying Alcantara - Last Filed: 09/11/18 12:09> - Vital Signs Last Vital Signs Temp Pulse Resp BP Pulse Ox 98 F 87 18 130/73 98 09/11/18 09:16 09/11/18 09:16 09/11/18 09:16 09/11/18 09:16 09/11/18 09:16 - Physical Exam Comments: 09/11/18 16:06 Patient is awake and alert, agitated, follows simple commands; Normocephalic and atraumatic + Right periorbital ecchymoses (subacute) PERRLA, EOMI mm-dry cta rrr Numerous ecchymosis to upper and lower extremities of indeterminate age; full range of motion to upper and lower extremity is bilaterally; gait is stable Abdomen soft, nondistended, nontender, Pelvis is stable back: No obvious deformity, midline and paraspinal tenderness along the entirety of the thoracic and proximal lumbar spine; Patient is noted to be awake and alert, patient's speech is noted to be nonsensical and she does not follow commands. <Berny De Los Santos - Last Filed: 09/11/18 16:49> Moderate Sedation - Procedure Monitoring Vital Signs: Procedure Monitoring Vital Signs Temperature 98 F 09/11/18 09:16 Pulse Rate 87 09/11/18 09:16 Respiratory Rate 18 09/11/18 09:16 Blood Pressure 130/73 09/11/18 09:16 O2 Sat by Pulse Oximetry (%) 98 09/11/18 09:16 <Ying Alcantara - Last Filed: 09/11/18 12:09> - Procedure Monitoring Vital Signs: Procedure Monitoring Vital Signs Temperature 98 F 09/11/18 09:16 Pulse Rate 87 09/11/18 09:16 Respiratory Rate 18 09/11/18 09:16 Blood Pressure 130/73 09/11/18 09:16 O2 Sat by Pulse Oximetry (%) 98 09/11/18 09:16 <Berny De Los Santos - Last Filed: 09/11/18 16:49> ED Treatment Course - LABORATORY CBC & Chemistry Diagram: 09/11/18 10:19 09/11/18 10:19 <Ying Alcantara - Last Filed: 09/11/18 12:09> - LABORATORY CBC & Chemistry Diagram: 09/11/18 10:19 09/11/18 10:19 <Berny De Los Santos - Last Filed: 09/11/18 16:49> Medical Decision Making - Medical Decision Making 09/11/18 16:09 Patient is a 63-year-old female with multiple comorbidities, history of alcohol abuse who presents from [facility] with confusion and nonsensical speech. In the ER, patient is awake and alert, follows simple commands; intermittently patient is able to answer appropriately but throughout the evaluation her speech appears nonsensical and dysarthric; CT of head shows no evidence of acute intracranial pathology. Urine drug screen shows no evidence of toxic ingestion. Patient's afebrile. Throughout the evaluation, patient appears agitated and threatening to elope and pull out her IV. Several attempts at verbal de-escalation failed and patient required chemical sedation with IM Haldol and IV Ativan and Benadryl. Patient also received IV thiamine. At this time, patient will require admission for evaluation of altered mental status and speech disturbance. <Berny De Los Santos - Last Filed: 09/11/18 16:49> *DC/Admit/Observation/Transfer <Ying Alcantara - Last Filed: 09/11/18 12:09> - Discharge Dispostion Decision to Admit order: Yes <Berny De Los Santos - Last Filed: 09/11/18 16:49> Diagnosis at time of Disposition: Altered mental status Qualifiers: Altered mental status type: unspecified Qualified Code(s): R41.82 - Altered mental status, unspecified - Discharge Dispostion Condition at time of disposition: Fair
[2018-09-11] MEDS ORDERED: SODIUM CHLORIDE 1,000 ML IV STA (10:18)
[2018-09-11 10:51] LABS: URINE APPEARANCE SLCLOUDY; URINE BILIRUBIN NEGATIVE (<2.0 mg/dL); URINE COLOR YELLOW; URINE GLUCOSE (UA) NEGATIVE (NEGATIVE); URINE KETONE NEGATIVE (NEGATIVE); URINE LEUK ESTERASE NEGATIVE (NEGATIVE); URINE NITRITE NEGATIVE (NEGATIVE); URINE PROTEIN NEGATIVE (NEGATIVE); URINE UROBILINOGEN NEGATIVE mg/dL (0.2-1.0)
[2018-09-11 11:19] LABS: BASO % 0.8 % (0-2.0); EOS % 0.5 % (0-4.5); HEMATOCRIT 31.9 % (32.4-45.2); HEMOGLOBIN 10.9 GM/dL (10.7-15.3); LYMPH % 8.3 % (8-40); MCH 32.6 pg (25.7-33.7); MCHC 34.3 g/dl (32.0-36.0); MEAN CELL VOLUME 95.3 fl (80-96); MEAN PLT VOLUME 7.8 fl (7.5-11.1); MONO % 6.6 % (3.8-10.2); NEUT % 83.8 % (42.8-82.8); PLATELET COUNT 309 K/MM3 (134-434); RBC 3.34 M/mm3 (3.60-5.2); RDW 17.7 % (11.6-15.6); WHITE BLOOD COUNT 10.8 K/mm3 (4.0-10.0)
[2018-09-11 11:47] LABS: ALBUMIN 4.4 g/dl (3.4-5.0); ALK PHOS 113 U/L (45-117); ANION GAP 11 MMOL/L (8-16); BILIRUBIN,TOTAL 0.6 mg/dL (0.2-1); BLOOD UREA NITROGEN 18 mg/dL (7-18); CALCIUM 9.7 mg/dL (8.5-10.1); CHLORIDE 107 mmol/L (98-107); CO2 21 mmol/L (21-32); GLUCOSE,RANDOM 95 mg/dL (74-106); MAGNESIUM 2.6 mg/dL (1.8-2.4); POTASSIUM 4.4 mmol/L (3.5-5.1); SGOT/AST 48 U/L (15-37); SGPT/ALT 22 U/L (13-61); SODIUM 139 mmol/L (136-145); TOT PROT 7.9 g/dl (6.4-8.2)
[2018-09-11] MEDS ORDERED: HALOPERIDOL LACTATE 5 MG/ML IM ONE ×2 (13:54→15:39)
[2018-09-11] MEDS ORDERED: HALOPERIDOL LACTATE 5 MG/ML ONE ×2 (14:06→15:42)
[2018-09-11] MEDS ORDERED: LORazepam 2 MG/ML SDV VIAL ONE ×2 (14:06→15:43)
[2018-09-11] MEDS ORDERED: THIAMINE HCL 200 MG/2 ML VIAL IVPB ONE (14:22)
[2018-09-11 14:28] LABS: ANISOCYTOSIS 0; MACROCYTOSIS 0; OVALOCYTE 1+; PLATELET ESTIMATE NORMAL
[2018-09-11] MEDS ORDERED: THIAMINE HCL 200 MG/2 ML VIAL ONE (14:52)
[2018-09-11 15:40] LABS: COCAINE, UR NEGATIVE ng/ml (CUTOFF=300); METHADONE, UR NEGATIVE ng/ml (CUTOFF=300); OPIATES, URI NEGATIVE ng/ml (CUTOFF=300); PHENCYCLIDINE,URINE NEGATIVE ng/ml (CUTOFF=25); URINE AMPHETAMINES NEGATIVE ng/ml (CUTOFF=500); URINE BARBITURATES NEGATIVE ng/ml (CUTOFF=200); URINE BENZODIAZEPINES NEGATIVE ng/ml (CUTOFF=200)
--- NOTE | 2018-09-11 16:23 | PN ---
Teaching Attending Note Name of Resident: Shruthi Costa ATTENDING PHYSICIAN STATEMENT I saw and evaluated the patient. I reviewed the resident's note and discussed the case with the resident. I agree with the resident's findings and plan as documented. SUBJECTIVE: Patient is a 63yo female ,presented with acute change of mental status. OBJECTIVE: Vital Signs Temperature 98 F 09/11/18 09:16 Pulse Rate 112 H 09/11/18 13:31 Respiratory Rate 18 09/11/18 13:31 Blood Pressure 130/73 09/11/18 13:31 O2 Sat by Pulse Oximetry (%) 96 09/11/18 13:31 GENERAL: Arousable but lethargic HEAD: No signs of trauma, normocephalic, atraumatic EYES: PERRLA 5mm, EOMI, sclera anicteric, conjunctiva clear ENT: oropharynx clear without exudates. Moist mucosa. Tongue laceration midline NECK: Normal ROM, supple, no lymphadenopathy, JVD, or masses, no midline tenderness LUNGS: No distress, clear to auscultation bilaterally HEART: Regular rate and rhythm, normal S1 and S2, no murmurs, rubs or gallops. ABDOMEN: Soft, nontender, normoactive bowel sounds. No guarding, no rebound. No masses CHEST: Port on R side, no midline tenderness EXTREMITIES: Bruising on left arm, Normal range of motion, no edema. No clubbing or cyanosis. NEUROLOGICAL: Cranial nerves II through XII grossly intact. Slurred speech, moves all extremities CBCD WBC 10.8 K/mm3 (4.0-10.0) H 09/11/18 10:19 RBC 3.34 M/mm3 (3.60-5.2) L 09/11/18 10:19 Hgb 10.9 GM/dL (10.7-15.3) 09/11/18 10:19 Hct 31.9 % (32.4-45.2) L 09/11/18 10:19 MCV 95.3 fl (80-96) 09/11/18 10:19 MCHC 34.3 g/dl (32.0-36.0) 09/11/18 10:19 RDW 17.7 % (11.6-15.6) H 09/11/18 10:19 Plt Count 309 K/MM3 (134-434) 09/11/18 10:19 MPV 7.8 fl (7.5-11.1) 09/11/18 10:19 CMP Sodium 139 mmol/L (136-145) 09/11/18 10:19 Potassium 4.4 mmol/L (3.5-5.1) 09/11/18 10:19 Chloride 107 mmol/L (98-107) 09/11/18 10:19 Carbon Dioxide 21 mmol/L (21-32) 09/11/18 10:19 Anion Gap 11 MMOL/L (8-16) 09/11/18 10:19 BUN 18 mg/dL (7-18) 09/11/18 10:19 Creatinine 1.0 mg/dL (0.55-1.3) 09/11/18 10:19 Creat Clearance w eGFR 55.82 (>60) 09/11/18 10:19 Random Glucose 95 mg/dL (74-106) 09/11/18 10:19 Calcium 9.7 mg/dL (8.5-10.1) 09/11/18 10:19 Total Bilirubin 0.6 mg/dL (0.2-1) 09/11/18 10:19 AST 48 U/L (15-37) H 09/11/18 10:19 ALT 22 U/L (13-61) 09/11/18 10:19 Alkaline Phosphatase 113 U/L (45-117) 09/11/18 10:19 Total Protein 7.9 g/dl (6.4-8.2) 09/11/18 10:19 Albumin 4.4 g/dl (3.4-5.0) 09/11/18 10:19 Home Medications Medication Instructions Recorded Quetiapine Fumarate [Seroquel -] 200 mg PO HS 03/09/18 Oxycodone HCl/Acetaminophen 1 tab PO Q6H PRN #3 tablet MDD 4 07/10/18 [Percocet 5-325 mg Tablet] tabs a day Abdomen and pelvis CT (with contrast) Clinical information: status post fall Multiplanar imaging the chest, abdomen and pelvis was performed following the intravenous administration of nonionic contrast. As requested enteric contrast was not administered. No prior imaging studies are available at this facility for direct comparison. There is no evidence of pneumothorax, pleural fluid or pulmonary contusion. Mild left lower lobe discoid atelectasis versus scarring. Minimal bibasilar dependent subpleural atelectasis is seen. No obvious acute fracture is seen. Multilevel upper and midthoracic vertebral body compression fractures are noted which appear chronic including a marked T7 vertebral body compression fracture without bony retropulsion. Left atrial size appears borderline. There is no pericardial effusion. A right internal jugular venous catheter is seen in place with the tip at the superior cavoatrial junction. There is no aortic aneurysm. No CT evidence of aortic injury. The ascending aorta is partially obscured due to vascular pulsation artifact. No definite thoracic lymphadenopathy is identified. No evidence of pneumoperitoneum, free intraperitoneal fluid or bowel obstruction. A nondisplaced vertical fracture of the right sacral L is noted which may be subacute (versus chronic). A probable 0.4 cm low-attenuation focus suggestive of a cyst is seen within the pancreatic body along the midline ventrally (series 10, image 50). The liver, spleen, adrenal glands and kidneys demonstrate no discrete abnormality. There is no aortic aneurysm. Status post cholecystectomy. There is no definite biliary tract dilatation. Multiple surgical clips are seen within the upper retroperitoneum. A surgical bowel anastomosis is seen within the left mid abdomen. Severe atrophy is seen of the abdominal wall musculature bilaterally. No mesenteric hematoma is visualized. There is no gross acute bowel pathology. The lower pelvis is partially obscured due to extensive metallic artifact arising from a right hip arthroplasty. The urinary bladder is overdistended with an approximate volume of 650 mL. Colonic fecal retention is noted which is probably moderate. IMPRESSION: No definite acute posttraumatic changes are seen involving the chest, abdomen or pelvis. Urinary bladder overdistention is noted with a volume of approximately 650 mL. Mild left lower lobe discoid atelectasis/ scarring. Minimal bibasilar dependent subpleural atelectasis. A subacute versus chronic fracture of the right sacral ala is noted. Multilevel chronic vertebral body compression fractures including a marked chronic T7 fracture. Mediport catheter in place. 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 Correlate with prior imaging studies if available from a different facility. If prior studies are not available additional evaluation utilizing MRI/MRCP suggests approximately with intravenous contrast. Alternatively correlate with 2 month follow-up contrast enhanced CT. Status post cholecystectomy. Additional postsurgical changes are noted as discussed above. There is severe atrophy of the abdominal wall musculature bilaterally. Reported By: Jason Gandhi MD [id number] ASSESSMENT AND PLAN: Patient is a 63-year-old female with PMhx of alcohol abuse who presents from [facility] with confusion and change of mental status. #Acute change of mental status will monitor, IVF, no signs of infection, afebrile Psych consult: Dr. Berg, will get TSh, b12, folate, RPR level , ammonia level normal ,utox neg will get PT to evaluate the patient. #Subacute vs Chronic fx of R sacral Ala, ortho consult appreciated Ivan Russell #Acute Rhabdomyolysis with hx of multiple falls CK 09/10 1293, will monitor , IV fluids #Anxiety/Depression/Bipolar: hold all meds: since patient received Haldol for agitation, will continue home meds in am seroquel 300mg HS DVt Px: heparin
--- NOTE | 2018-09-11 16:58 | HP ---
CHIEF COMPLAINT: fall PCP: [facility] HISTORY OF PRESENT ILLNESS: Patient is a 62 yo F with past medical history significant for multiple falls, Myelofibrosis leukemia, HCV, depression, anxiety , bipolar disorder, arthritis, pancreatitis BIBA to the emergency department because of a Fall today. Patient is a poor historian and unable to provide a reliable history. Per ED notes, patient was seen in our ER last night for lower back pain s/p fall after taking too many sleeping pills. Today she states that she fell again sometime after she was discharged. Patient appears confused, dysarthric, and nonsensical per ED which is not her baseline. She was given 4mg Haldol, 2mg Ativan, and Benadryl in ED because of agitation and threatening remarks. Patient currently denies pain, sob, chest pain, nausea, vomiting, dizziness, bloody stools, fevers, chills. ER course was notable for: (1) CT of head shows no evidence of acute intracranial pathology. (2) Urine drug screen shows no evidence of toxic ingestion Recent Travel: PAST MEDICAL HISTORY: Appendectomy, Cholecystectomy, Whipple for benign pancreatic pseudocyst, and R. hip replacement (w/2 screws) PAST SURGICAL HISTORY: Social History: Smoking: pack a day Alcohol: denies Drugs: denies Family History: Allergies Penicillins Allergy (Unknown, Verified 07/10/18 13:45) Hives HOME MEDICATIONS: Home Medications Medication Instructions Recorded Quetiapine Fumarate [Seroquel -] 200 mg PO HS 03/09/18 Oxycodone HCl/Acetaminophen 1 tab PO Q6H PRN #3 tablet MDD 4 07/10/18 [Percocet 5-325 mg Tablet] tabs a day REVIEW OF SYSTEMS unable to obtain PHYSICAL EXAMINATION Vital Signs - 24 hr 09/11/18 09/11/18 09:16 13:31 Temperature 98 F Pulse Rate 87 Pulse Rate [ 112 H Apical] Respiratory 18 18 Rate Blood Pressure 130/73 Blood Pressure 130/73 [Right Arm] O2 Sat by Pulse 98 96 Oximetry (%) Very limited physical exam. difficult to obtain. Patient agitated and refused. GENERAL: a/o x 1, confused HEAD: nc, at, + Right periorbital ecchymoses EYES: conjunctiva clear. EARS, NOSE, THROAT: oropharynx clear without exudates. dry mucous membranes ABDOMEN: tender to palpation LLQ, patient refused further exam of abdomen LOWER EXTREMITIES:No peripheral edema. PSYCHIATRIC: confused, agitated, not cooperating Laboratory Results - last 24 hr 09/11/18 09/11/18 09/11/18 10:19 10:19 10:22 WBC 10.8 H RBC 3.34 L Hgb 10.9 Hct 31.9 L MCV 95.3 MCH 32.6 MCHC 34.3 RDW 17.7 H Plt Count 309 MPV 7.8 Absolute Neuts (auto) 9.1 H Neutrophils % 83.8 H Neutrophils % (Manual) 76.0 Band Neutrophils % 5.8 Lymphocytes % 8.3 D Lymphocytes % (Manual) 5.8 L D Monocytes % 6.6 Monocytes % (Manual) 8 D Eosinophils % 0.5 Eosinophils % (Manual) 0.9 Basophils % 0.8 Basophils % (Manual) 1.9 Myelocytes % (Man) 2 Promyelocytes % (Man) 0 Blast Cells % (Manual) 0 D Nucleated RBC % 1 H Metamyelocytes 0 D Hypochromia 0 Platelet Estimate Normal Polychromasia 0 Poikilocytosis 1+ Anisocytosis 0 Microcytosis 0 Macrocytosis 0 Ovalocytes 1+ Schistocytes 1+ Sodium 139 Potassium 4.4 Chloride 107 Carbon Dioxide 21 Anion Gap 11 BUN 18 Creatinine 1.0 Creat Clearance w eGFR 55.82 POC Glucometer Random Glucose 95 Calcium 9.7 Magnesium 2.6 H Total Bilirubin 0.6 AST 48 H ALT 22 Alkaline Phosphatase 113 Total Protein 7.9 Albumin 4.4 Urine Color Yellow Urine Appearance Slcloudy Urine pH 6.0 Ur Specific [place] 1.029 Urine Protein Negative Urine Glucose (UA) Negative Urine Ketones Negative Urine Blood Negative Urine Nitrite Negative Urine Bilirubin Negative Urine Urobilinogen Negative Ur Leukocyte Esterase Negative Opiates Screen Methadone Screen Barbiturate Screen Phencyclidine Screen Ur Amphetamines Screen MDMA (Ecstasy) Screen Benzodiazepines Screen Cocaine Screen U Marijuana (THC) Screen 09/11/18 09/11/18 10:42 14:13 WBC RBC Hgb Hct MCV MCH MCHC RDW Plt Count MPV Absolute Neuts (auto) Neutrophils % Neutrophils % (Manual) Band Neutrophils % Lymphocytes % Lymphocytes % (Manual) Monocytes % Monocytes % (Manual) Eosinophils % Eosinophils % (Manual) Basophils % Basophils % (Manual) Myelocytes % (Man) Promyelocytes % (Man) Blast Cells % (Manual) Nucleated RBC % Metamyelocytes Hypochromia Platelet Estimate Polychromasia Poikilocytosis Anisocytosis Microcytosis Macrocytosis Ovalocytes Schistocytes Sodium Potassium Chloride Carbon Dioxide Anion Gap BUN Creatinine Creat Clearance w eGFR POC Glucometer [id number] Random Glucose Calcium Magnesium Total Bilirubin AST ALT Alkaline Phosphatase Total Protein Albumin Urine Color Urine Appearance Urine pH Ur Specific [place] Urine Protein Urine Glucose (UA) Urine Ketones Urine Blood Urine Nitrite Urine Bilirubin Urine Urobilinogen Ur Leukocyte Esterase Opiates Screen Negative Methadone Screen Negative Barbiturate Screen Negative Phencyclidine Screen Negative Ur Amphetamines Screen Negative MDMA (Ecstasy) Screen Negative Benzodiazepines Screen Negative Cocaine Screen Negative U Marijuana (THC) Screen Negative ASSESSMENT/PLAN: 62 yo F with past medical history significant for multiple falls, Myelofibrosis leukemia, HCV, depression, anxiety, bipolar disorder, arthritis, pancreatitis BIBA to the emergency department s/p fall and AMS #Acute Encephalopathy -unknown etiology -no signs of infection, afebrile -u/a unremarkable, cxr unremarkable, head ct neg -Psych consult: Dr. Berg -TSh, b12, folate, rpr -electrolytes wnl -ammonia normal yesterday, repeat -utox neg -bladder scan: CTAP 09/10 showed bladder distention with 650ml. #Subacute vs Chronic fx of R sacral Ala -ortho consulted: Ivan Russell #Rhabdomyolysis -likely from fall -CK 09/10 1293 -IV fluids -monitor #Anxiety/Depression/Bipolar hold all meds: -Amitriptyline 100mg HS -Temazopam 15 HS -Seroquel 300mg HS #FEN -IV fluids NS 100ml/hour -monitor -Regular diet #DVt -lovenox 40sq obs Visit type - Emergency Visit Emergency Visit: Yes ED Registration Date: 09/11/18 Care time: The patient presented to the Emergency Department on the above date and was hospitalized for further evaluation of their emergent condition. - New Patient This patient is new to me today: Yes Date on this admission: 09/13/18 - Critical Care Critical Care patient: No
--- NOTE | 2018-09-11 17:47 | CONSULT ---
Consult - text type - Consultation Consultation Note: ORTHOPEDIC SURGERY CONSULTATION NOTE Department of Orthopedic Surgery HISTORY OF PRESENT ILLNESS Ms. Lindsay is a 62 year old female with past medical history significant for multiple falls, Myelofibrosis leukemia, HCV, depression, anxiety, bipolar disorder, arthritis, pancreatitis BIBA to the emergency department at [facility] because of a fall today. Patient is a poor historian and unable to provide a reliable history. Per ED notes, patient was seen in the ER last night for lower back pain s/p fall after taking too many sleeping pills. Today she states that she fell again sometime after she was discharged. Patient appears confused, dysarthric, and nonsensical per ED which is not her baseline. As per ED staff, she was getting out of bed and able to ambulate without assistance or pain. The orthopedic service was consulted for subacute vs. chronic sacral ala fracture. The patient denies any back pain, but also seems confused. Denies any other injuries. Denies numbness, tingling or other constitutional complaints. Denies/Endorses tobacco use, drug use, alcohol abuse. FAMILY HISTORY As per H&P REVIEW OF SYMPTOMS A twelve-point review of systems was performed and was negative except as noted in HPI. PHYSICAL EXAM Constitutional: Confused, but able to follow some basic commands. Right Upper Extremity: Skin warm, dry, multiple bruises noted; Muscle mass equal and symmetric to contralateral side. No atrophy noted. No masses or effusions noted. No tenderness to palpation all joints; nontender throughout rest of extremity. Full passive and active ROM, free from pain. Joints stable with no pathologic laxity. M/R/U/MSK/AX motor intact; SILT distally; 2+ radial pulses; Cap refill brisk. Tone and reflexes normal. Left Upper Extremity: Skin warm, dry,multiple bruises noted. Muscle mass equal and symmetric to contralateral side. No atrophy noted. No masses or effusions noted. No tenderness to palpation all joints; nontender throughout rest of extremity. Full passive and active ROM, free from pain. Joints stable with no pathologic laxity. M/R/U/MSK/AX motor intact; SILT distally; 2+ radial pulses; Cap refill brisk. Tone and reflexes normal. Right Lower Extremity: Skin warm, dry, and intact; no lesions, rashes or ulcers noted. Healed hip incision s/p SAMANTHA; Muscle mass equal and symmetric to contralateral side. No atrophy noted. No masses or effusions noted. No tenderness to palpation all joints; nontender throughout rest of extremity. No cords or calf tenderness No significant calf/ankle edema. Full passive and active ROM, free from pain. Joints stable with no pathologic laxity. EHL/TA/GS motor intact; SILT distally; 2+ DP pulses; Cap refill brisk. Tone and reflexes normal. Able to SLR, negative log roll. Left Lower Extremity: Skin warm, dry, and intact; no lesions, rashes or ulcers noted. Muscle mass equal and symmetric to contralateral side. No atrophy noted. No masses or effusions noted. No tenderness to palpation all joints; nontender throughout rest of extremity. No cords or calf tenderness No significant calf/ankle edema. Full passive and active ROM, free from pain. Joints stable with no pathologic laxity. EHL/TA/GS motor intact; SILT distally; 2+ DP pulses; Cap refill brisk. Tone and reflexes normal. Able to SLR, negative log roll. Back; Mild tenderness over the T8 region, no TTP of the sacrum at this time. No step offs. Active Problems Problem Status Category Onset Altered mental status Acute Medical Social History Smoking history Unknown if ever smoked Aproximately how many 10 cigarettes per day Hx Alcohol Use No Allergies Allergy/AdvReac Type Severity Reaction Status Date / Time Penicillins Allergy Unknown Hives Verified 07/10/18 13:45 Active Medications Generic Name Dose Route Start Last Admin Trade Name Freq PRN Reason Stop Dose Admin Enoxaparin Sodium 40 mg 09/12/18 10:00 Lovenox - SQ DAILY [facility] Sodium Chloride 1,000 mls @ 100 mls/hr 09/11/18 17:00 Normal Saline - IV ASDIR [facility] Vital Signs (last) Temp Pulse Resp BP Pulse Ox 98 F 112 H 18 130/73 96 09/11/18 09:16 09/11/18 13:31 09/11/18 13:31 09/11/18 13:31 09/11/18 13:31 Intake and Output 09/09/18 09/10/18 09/11/18 23:59 23:59 23:59 Other: Weight 140 lb Height 5 ft 1 in 5 ft 1 in Body Mass Index (BMI) 26.4 Laboratory 09/11/18 10:19 09/11/18 10:19 IMAGING I personally reviewed all radiographs, CT, and other imaging from 09/10 ER vist. They demonstrate a subacute vs chronic sacral ala fracture, as well as a chronic T7 VCF. ASSESSMENT AND PLAN Ms. Lindsay is a 63 year old female presenting status post fall with a likely chronic sacral ala fracture, as well as a chronic VCF T7 fracture. We have reviewed the imaging and clinical findings in detail, as well as their potential implications. After appropriate informed discussion, we decided on the following plan: - weight bearing as tolerated with assistance - pain control - dvt prophylaxis - physical therapy - continue medical management - no orthopedic intervention at this time All questions were answered. Thank you for involving our team in the care of this patient.
[2018-09-11] MEDS ORDERED: QUEtiapine FUMARATE 100 MG TABLET (FP) PO SCH (22:00)
[2018-09-12 07:51] LABS: BASO % 0.6 % (0-2.0); EOS % 0.3 % (0-4.5); HEMATOCRIT 27.9 % (32.4-45.2); HEMOGLOBIN 9.5 GM/dL (10.7-15.3); LYMPH % 11.2 % (8-40); MCH 32.6 pg (25.7-33.7); MCHC 34.1 g/dl (32.0-36.0); MEAN CELL VOLUME 95.6 fl (80-96); MEAN PLT VOLUME 7.7 fl (7.5-11.1); MONO % 6.9 % (3.8-10.2); PLATELET COUNT 283 K/MM3 (134-434); RBC 2.92 M/mm3 (3.60-5.2); RDW 17.8 % (11.6-15.6); WHITE BLOOD COUNT 7.4 K/mm3 (4.0-10.0)
[2018-09-12 08:26] LABS: ALBUMIN 3.9 g/dl (3.4-5.0); ALK PHOS 97 U/L (45-117); ANION GAP 11 MMOL/L (8-16); BILIRUBIN,TOTAL 0.8 mg/dL (0.2-1); BLOOD UREA NITROGEN 10 mg/dL (7-18); CHLORIDE 110 mmol/L (98-107); CO2 21 mmol/L (21-32); CREATININE 0.6 mg/dL (0.55-1.3); GLUCOSE,RANDOM 90 mg/dL (74-106); MAGNESIUM 1.9 mg/dL (1.8-2.4); PHOSPHOROUS 3.4 mg/dL (2.5-4.9); POTASSIUM 3.7 mmol/L (3.5-5.1); SGOT/AST 54 U/L (15-37); SGPT/ALT 20 U/L (13-61); SODIUM 141 mmol/L (136-145); TOT PROT 6.8 g/dl (6.4-8.2)
--- NOTE | 2018-09-12 08:37 | PN ---
Progress Note (short form) - Note Progress Note: ORTHOPEDIC SURGERY PROGRESS NOTE Department of Orthopedic Surgery SUBJECTIVE No acute events overnight. No complaints currently. Denies chest pain, shortness of breath, or calf pain. No nausea or vomiting. Tolerating oral intake. Pain controlled. PHYSICAL EXAMINATION General: Alert, oriented, cooperative and no distress. Slightly confused, trying to get out of bed but held with a body restraint. Right Lower Extremity: Skin warm, dry, and intact; no lesions, rashes or ulcers noted. Healed hip incision s/p SAMANTHA; Muscle mass equal and symmetric to contralateral side. No atrophy noted. No masses or effusions noted. No tenderness to palpation all joints; nontender throughout rest of extremity. No cords or calf tenderness No significant calf/ankle edema. Full passive and active ROM, free from pain. Joints stable with no pathologic laxity. EHL/TA/GS motor intact; SILT distally; 2+ DP pulses; Cap refill brisk. Tone and reflexes normal. Able to SLR, negative log roll. Left Lower Extremity: Skin warm, dry, and intact; no lesions, rashes or ulcers noted. Muscle mass equal and symmetric to contralateral side. No atrophy noted. No masses or effusions noted. No tenderness to palpation all joints; nontender throughout rest of extremity. No cords or calf tenderness No significant calf/ankle edema. Full passive and active ROM, free from pain. Joints stable with no pathologic laxity. EHL/TA/GS motor intact; SILT distally; 2+ DP pulses; Cap refill brisk. Tone and reflexes normal. Able to SLR, negative log roll. Back; N tenderness over the thoracolumbar spine today, no TTP of the sacrum today. No step offs. Intake & Output 09/10/18 09/11/18 09/12/18 23:59 23:59 23:59 Other: Voiding Method Incontinent # Unmeasured Voids Void 2 Weight 140 lb Height 5 ft 1 in 5 ft 1 in Body Mass Index (BMI) 26.4 Active Medications Generic Name Dose Route Start Last Admin Trade Name Freq PRN Reason Stop Dose Admin Enoxaparin Sodium 40 mg 09/12/18 10:00 Lovenox - SQ DAILY [facility] Sodium Chloride 1,000 mls @ 100 mls/hr 09/11/18 17:00 Normal Saline - IV ASDIR [facility] Quetiapine Fumarate 300 mg 09/11/18 22:00 09/11/18 21:55 Seroquel - PO 300 mg HS [facility] Administration Vital Signs (last) Temp Pulse Resp BP Pulse Ox 97.9 F 78 20 116/55 L 98 09/12/18 06:41 09/12/18 06:41 09/12/18 06:41 09/12/18 06:41 09/11/18 20:00 Laboratory 09/12/18 06:00 09/12/18 06:00 ASSESSMENT AND PLAN Ms. Lindsay is a 63 year old female presenting status post fall with a likely chronic sacral ala fracture, as well as a chronic VCF T7 fracture. We have reviewed the imaging and clinical findings in detail, as well as their potential implications. After appropriate informed discussion, we decided on the following plan: - weight bearing as tolerated with assistance - pain control - dvt prophylaxis - physical therapy - continue medical management - no further orthopedic intervention at this time All questions were answered. Thank you for involving our team in the care of this patient.
[2018-09-12] MEDS ORDERED: PT OWN MED DRAWER 7, Y5N ONE ×2 (10:14→20:37)
[2018-09-12] MEDS: ENOXAPARIN NA (PORCINE) 40 MG/0.4 ML DISP.SYRIN SQ SCH (10:20)
--- NOTE | 2018-09-12 11:27 | CON.PSY ---
Psychiatry Consult Chief Complaint: 63 year old female with a history of BiPolar disorder , anxiety and multiple medical conditions seen for Psych eval. She [place]. she has been displaying acute agitation and been falling. On SEreoquel 30mg po hs. Symptoms: reports: Aggressivity, Impulsivity - Previous Psychiatric Treatment Outpatient: Less than 6 mos ago Inpatient: One prior admission - Previous Substance Abuse Treatment Outpatient: None Inpatient: None - Reason for Previous Treatment Reason for Previous Treatment: Biploar Illness - Current Medications Current Medications: Active Medications Enoxaparin Sodium (Lovenox -) 40 mg SQ DAILY [facility] Last Admin: 09/12/18 10:20 Dose: 40 mg Sodium Chloride (Normal Saline -) 1,000 mls @ 100 mls/hr IV ASDIR [facility] Quetiapine Fumarate (Seroquel -) 300 mg PO HS [facility] Last Admin: 09/11/18 21:55 Dose: 300 mg - Allergies Allergies: Allergies Allergy/AdvReac Type Severity Reaction Status Date / Time Penicillins Allergy Unknown Hives Verified 07/10/18 13:45 - Current Living Status Usual Living Arrangement: Alone - Current Mental Status Evaluation Appearance: Disheveled Attitude: Guarded - Affect Affect: Labile Appropriateness: Appropriate to Content - Mood Mood: Irritable - Speech/Language Expressive: Coherent - Psychomotor Activity Psychomotor Activity: Hyperactive - Thought Process Thought Process: Circumstantial - Thought Content Hallucinations: Absent Delusions: Absent - Self Perception Self Perception: No Impairment - Cognition Attention: Alert Orientation: Time Memory, Immediate Recall: Intact Memory, Short Term: 2/3 Memory, Remote with Promptin/3 - Concentration Serial Sevens Intact: No Simple Calculations Intact: No - Abstraction Judgement: Moderately Impaired - Insight Insight: Intact - Impulse Control Impulse Control: Moderately Impaired - Suicidal Ideation Suicidal Ideation: No - Homicidal Ideation Homicidal Ideation: No Assessment/Plan 1) Reduce SEroquel 200mg po hs, can cause HYpotension resulting in falls.
[2018-09-12] MEDS: SODIUM CHLORIDE 1,000 ML IV SCH ×3 (12:30→18:22)
--- NOTE | 2018-09-12 14:15 | EKG ---
Test Reason : Blood Pressure : / mmHG Vent. Rate : 112 BPM Atrial Rate : 112 BPM P-R Int : 000 ms QRS Dur : 086 ms QT Int : 356 ms P-R-T Axes : 000 143 116 degrees QTc Int : 485 ms POOR DATA QUALITY, INTERPRETATION MAY BE ADVERSELY AFFECTED SINUS TACHYCARDIA LOW VOLTAGE QRS LEFT POSTERIOR FASCICULAR BLOCK NONSPECIFIC ST AND T WAVE ABNORMALITY ABNORMAL ECG Confirmed by VANE CARABALLO MD ([id number]) on 09/12/2018 2:15:05 PM Referred By: Confirmed By:VANE CARABALLO MD
--- NOTE | 2018-09-12 16:13 | PN ---
Physical Exam: SUBJECTIVE: Patient seen and examined at bedside. No acute events overnight. Pt has no complaints, difficult to understand. OBJECTIVE: Last Vital Signs Temp Pulse Resp BP Pulse Ox 98.3 F 106 H 19 117/73 98 09/12/18 15:01 09/12/18 15:01 09/12/18 15:09/12/18 15:09/11/18 20:00 GENERAL: a/o x 1, dysarthric, difficult to understand HEAD: nc, at, + Right periorbital ecchymoses EYES: conjunctiva clear. EARS, NOSE, THROAT: oropharynx clear without exudates. dry mucous membranes ABDOMEN: Minimal abd tenderness to palpation LOWER EXTREMITIES: No peripheral edema. PSYCHIATRIC: confused, agitated, not cooperating NEURO: Ambulatory (seen walking with PT) although unsteady CBC, BMP 09/12/18 06:00 09/12/18 06:00 Active Medications Enoxaparin Sodium (Lovenox -) 40 mg SQ DAILY [facility] Last Admin: 09/12/18 10:20 Dose: 40 mg Sodium Chloride (Normal Saline -) 1,000 mls @ 100 mls/hr IV ASDIR [facility] Last Admin: 09/12/18 12:30 Dose: 100 mls/hr Quetiapine Fumarate (Seroquel -) 200 mg PO HS [facility] IMAGING: * Head CT- maintenance mod volume loss and ventricular mass lesion, gross acute infarct, or IC hemorrhage. 1.8 x 1 cm nodule seen in scalp over forehead, likely sebaceous cyst. * Chest CT/CTAP- urinary bladder overdistension with volume of 650 mL; subacute chronic fx of R sacral ala noted. Probably 0.4 cm nonspecific pancreatic body cyst. Severe atrophy of the abd wall musculature b/l. * C-spine CT- No fx identified. ASSESSMENT/PLANS: 62F with past medical history significant for multiple falls, myelofibrosis, leukemia, HCV, depression, anxiety, bipolar disorder, arthritis, pancreatitis BIBA to the emergency department s/p fall and AMS. #Acute Encephalopathy; unknown etiology, unlikely infectious. -no signs of infection, afebrile -U/A unremarkable, CXR unremarkable, Head ct neg -TSH 2.99, B12 405, Folate 17, RPR non-reactive, Utox neg, ammonia normal -bladder scan: CTAP 09/10 showed bladder distention with 650ml. -Per psych, reduce Seroquel dose to 200 mg PO HS as it can cause hypotension resulting in falls. #Subacute vs Chronic fx of R sacral Ala -Per ortho, no surg intervention needed. Cont PT, WBAT, pain control. #Rhabdomyolysis; likely 2/2 fall. CK 4317 > 3882 -NS @ 100 -cont to trend CK #Anxiety/Depression/Bipolar -Per psych, reduce to Seroquel 200mg HS. Hold home meds: Amitriptyline 100mg HS, Temazopam 15 HS as these can cause falls #FEN -NS @ 100 -monitor -Regular diet #DVT Lovenox 40 sq dispo -full code -d/w SW regarding pt's current place of residence Visit type - Emergency Visit Emergency Visit: Yes ED Registration Date: 09/11/18 Care time: The patient presented to the Emergency Department on the above date and was hospitalized for further evaluation of their emergent condition. - New Patient This patient is new to me today: Yes Date on this admission: 09/12/18 - Critical Care Critical Care patient: No
--- NOTE | 2018-09-12 19:03 | PN ---
Teaching Attending Note Name of Resident: Lizzie Brewer ATTENDING PHYSICIAN STATEMENT I saw and evaluated the patient. I reviewed the resident's note and discussed the case with the resident. I agree with the resident's findings and plan as documented. SUBJECTIVE: OBJECTIVE: Vital Signs Temperature 98.3 F 09/12/18 15:01 Pulse Rate 106 H 09/12/18 15:01 Respiratory Rate 19 09/12/18 15:01 Blood Pressure 117/73 09/12/18 15:01 O2 Sat by Pulse Oximetry (%) 98 09/11/18 20:00 GENERAL: Arousable but lethargic HEAD: No signs of trauma, normocephalic, atraumatic EYES: PERRLA 5mm, EOMI, sclera anicteric, conjunctiva clear ENT: oropharynx clear without exudates. Moist mucosa. Tongue laceration midline NECK: Normal ROM, supple, no lymphadenopathy, JVD, or masses, no midline tenderness LUNGS: No distress, clear to auscultation bilaterally HEART: Regular rate and rhythm, normal S1 and S2, no murmurs, rubs or gallops. ABDOMEN: Soft, nontender, normoactive bowel sounds. No guarding, no rebound. No masses CHEST: Port on R side, no midline tenderness EXTREMITIES: Bruising on left arm, Normal range of motion, no edema. No clubbing or cyanosis. NEUROLOGICAL: Cranial nerves II through XII grossly intact. Slurred speech, moves all extremities CBCD WBC 7.4 K/mm3 (4.0-10.0) 09/12/18 06:00 RBC 2.92 M/mm3 (3.60-5.2) L 09/12/18 06:00 Hgb 9.5 GM/dL (10.7-15.3) L 09/12/18 06:00 Hct 27.9 % (32.4-45.2) L 09/12/18 06:00 MCV 95.6 fl (80-96) 09/12/18 06:00 MCHC 34.1 g/dl (32.0-36.0) 09/12/18 06:00 RDW 17.8 % (11.6-15.6) H 09/12/18 06:00 Plt Count 283 K/MM3 (134-434) 09/12/18 06:00 MPV 7.7 fl (7.5-11.1) 09/12/18 06:00 CMP Sodium 141 mmol/L (136-145) 09/12/18 06:00 Potassium 3.7 mmol/L (3.5-5.1) 09/12/18 06:00 Chloride 110 mmol/L (98-107) H 09/12/18 06:00 Carbon Dioxide 21 mmol/L (21-32) 09/12/18 06:00 Anion Gap 11 MMOL/L (8-16) 09/12/18 06:00 BUN 10 mg/dL (7-18) 09/12/18 06:00 Creatinine 0.6 mg/dL (0.55-1.3) 09/12/18 06:00 Creat Clearance w eGFR > 60 (>60) 09/12/18 06:00 Random Glucose 90 mg/dL (74-106) 09/12/18 06:00 Calcium 8.0 mg/dL (8.5-10.1) L 09/12/18 06:00 Total Bilirubin 0.8 mg/dL (0.2-1) 09/12/18 06:00 AST 54 U/L (15-37) H 09/12/18 06:00 ALT 20 U/L (13-61) 09/12/18 06:00 Alkaline Phosphatase 97 U/L (45-117) 09/12/18 06:00 Total Protein 6.8 g/dl (6.4-8.2) 09/12/18 06:00 Albumin 3.9 g/dl (3.4-5.0) 09/12/18 06:00 CARDIAC ENZYMES Creatine Kinase 3882 U/L (26-192) H 09/12/18 06:00 Current Medications Generic Name Dose Route Start Last Admin Trade Name Freq PRN Reason Stop Dose Admin Enoxaparin Sodium 40 mg 09/12/18 10:00 09/12/18 10:20 Lovenox - SQ 40 mg DAILY [facility] Administration Sodium Chloride 1,000 mls @ 100 mls/hr 09/11/18 17:00 09/12/18 18:22 Normal Saline - IV Not Given ASDIR [facility] Quetiapine Fumarate 200 mg 09/12/18 22:00 Seroquel - PO HS [facility] Microbiology 09/11/18 10:22 Urine - Urine - Catheterized Urine Culture - Final Contaminated: Please Repeat Abdomen and pelvis CT (with contrast) Clinical information: status post fall Multiplanar imaging the chest, abdomen and pelvis was performed following the intravenous administration of nonionic contrast. As requested enteric contrast was not administered. No prior imaging studies are available at this facility for direct comparison. There is no evidence of pneumothorax, pleural fluid or pulmonary contusion. Mild left lower lobe discoid atelectasis versus scarring. Minimal bibasilar dependent subpleural atelectasis is seen. No obvious acute fracture is seen. Multilevel upper and midthoracic vertebral body compression fractures are noted which appear chronic including a marked T7 vertebral body compression fracture without bony retropulsion. Left atrial size appears borderline. There is no pericardial effusion. A right internal jugular venous catheter is seen in place with the tip at the superior cavoatrial junction. There is no aortic aneurysm. No CT evidence of aortic injury. The ascending aorta is partially obscured due to vascular pulsation artifact. No definite thoracic lymphadenopathy is identified. No evidence of pneumoperitoneum, free intraperitoneal fluid or bowel obstruction. A nondisplaced vertical fracture of the right sacral L is noted which may be subacute (versus chronic). A probable 0.4 cm low-attenuation focus suggestive of a cyst is seen within the pancreatic body along the midline ventrally (series 10, image 50). The liver, spleen, adrenal glands and kidneys demonstrate no discrete abnormality. There is no aortic aneurysm. Status post cholecystectomy. There is no definite biliary tract dilatation. Multiple surgical clips are seen within the upper retroperitoneum. A surgical bowel anastomosis is seen within the left mid abdomen. Severe atrophy is seen of the abdominal wall musculature bilaterally. No mesenteric hematoma is visualized. There is no gross acute bowel pathology. The lower pelvis is partially obscured due to extensive metallic artifact arising from a right hip arthroplasty. The urinary bladder is overdistended with an approximate volume of 650 mL. Colonic fecal retention is noted which is probably moderate. IMPRESSION: No definite acute posttraumatic changes are seen involving the chest, abdomen or pelvis. Urinary bladder overdistention is noted with a volume of approximately 650 mL. Mild left lower lobe discoid atelectasis/ scarring. Minimal bibasilar dependent subpleural atelectasis. A subacute versus chronic fracture of the right sacral ala is noted. Multilevel chronic vertebral body compression fractures including a marked chronic T7 fracture. Mediport catheter in place. 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 Correlate with prior imaging studies if available from a different facility. If prior studies are not available additional evaluation utilizing MRI/MRCP suggests approximately with intravenous contrast. Alternatively correlate with 2 month follow-up contrast enhanced CT. Status post cholecystectomy. Additional postsurgical changes are noted as discussed above. There is severe atrophy of the abdominal wall musculature bilaterally. Reported By: Jason Gandhi MD [id number] Laboratory Tests 09/11/18 09/11/18 09/12/18 17:30 20:10 06:00 AST Ammonia 14.50 Creatine Kinase 4317 H 3882 H Vitamin B12 Serum Folate 17 TSH 2.99 09/12/18 09/12/18 06:00 06:00 AST 54 H Ammonia Creatine Kinase Vitamin B12 405 Serum Folate TSH ASSESSMENT AND PLAN: Patient is a 63-year-old female with PMhx of alcohol abuse who presents from [facility] jail with confusion and change of mental status. #Acute change of mental status improving, will continue IVF, no signs of infection, afebrile Psych consult: Dr. Berg, appreciated , TSh, b12, folate, within normal limit , continue PT . #Subacute vs Chronic fx of R sacral Ala, ortho consult appreciated Ivan Russell #Acute Rhabdomyolysis with hx of multiple falls CK 09/10 4317--.3882 continue IV fluids #Anxiety/Depression/Bipolar:continue home meds ,seroquel 300mg HS DVt Px: heparin
[2018-09-12] MEDS ORDERED: QUEtiapine FUMARATE 200 MG TABLET PO SCH (22:00)
[2018-09-13] MEDS ORDERED: RANITIDINE HCL 150 MG TABLET (FP) PO ONE (07:51)
[2018-09-13] MEDS ORDERED: diphenhydrAMINE HCL 25 MG CAPSULE (FP) PO ONE (08:33)
[2018-09-13] MEDS: ENOXAPARIN NA (PORCINE) 40 MG/0.4 ML DISP.SYRIN SQ SCH ×2 (08:53→13:56)
[2018-09-13] MEDS: ACETAMINOPHEN 325 MG TABLET (FP) PO PRN ×2 (09:41→16:55)
--- NOTE | 2018-09-13 10:08 | PN ---
Teaching Attending Note Name of Resident: Lizzie Brewer ATTENDING PHYSICIAN STATEMENT I saw and evaluated the patient. I reviewed the resident's note and discussed the case with the resident. I agree with the resident's findings and plan as documented. SUBJECTIVE: Patient is comfortable with no acute distress, no shortness of breath. OBJECTIVE: Vital Signs Temperature 98.7 F 09/13/18 06:41 Pulse Rate 91 H 09/13/18 06:41 Respiratory Rate 20 09/13/18 06:41 Blood Pressure 95/53 L 09/13/18 06:41 O2 Sat by Pulse Oximetry (%) 98 09/11/18 20:00 Initial Vital Signs Temp Pulse Resp BP Pulse Ox 98 F 87 18 130/73 98 09/11/18 09:16 09/11/18 09:16 09/11/18 09:16 09/11/18 09:16 09/11/18 09:16 GENERAL: Arousable but lethargic HEAD: No signs of trauma, normocephalic, atraumatic EYES: PERRLA 5mm, EOMI, sclera anicteric, conjunctiva clear ENT: oropharynx clear without exudates. Moist mucosa. Tongue laceration midline NECK: Normal ROM, supple, no lymphadenopathy, JVD, or masses, no midline tenderness LUNGS: No distress, clear to auscultation bilaterally HEART: Regular rate and rhythm, normal S1 and S2, no murmurs, rubs or gallops. ABDOMEN: Soft, nontender, normoactive bowel sounds. No guarding, no rebound. No masses CHEST: Port on R side, no midline tenderness EXTREMITIES: Bruising on left arm, Normal range of motion, no edema. No clubbing or cyanosis. NEUROLOGICAL: Cranial nerves II through XII grossly intact. speech improved, moves all extremities CBCD WBC 7.4 K/mm3 (4.0-10.0) 09/12/18 06:00 RBC 2.92 M/mm3 (3.60-5.2) L 09/12/18 06:00 Hgb 9.5 GM/dL (10.7-15.3) L 09/12/18 06:00 Hct 27.9 % (32.4-45.2) L 09/12/18 06:00 MCV 95.6 fl (80-96) 09/12/18 06:00 MCHC 34.1 g/dl (32.0-36.0) 09/12/18 06:00 RDW 17.8 % (11.6-15.6) H 09/12/18 06:00 Plt Count 283 K/MM3 (134-434) 09/12/18 06:00 MPV 7.7 fl (7.5-11.1) 09/12/18 06:00 CMP Sodium 141 mmol/L (136-145) 09/12/18 06:00 Potassium 3.7 mmol/L (3.5-5.1) 09/12/18 06:00 Chloride 110 mmol/L (98-107) H 09/12/18 06:00 Carbon Dioxide 21 mmol/L (21-32) 09/12/18 06:00 Anion Gap 11 MMOL/L (8-16) 09/12/18 06:00 BUN 10 mg/dL (7-18) 09/12/18 06:00 Creatinine 0.6 mg/dL (0.55-1.3) 09/12/18 06:00 Creat Clearance w eGFR > 60 (>60) 09/12/18 06:00 Random Glucose 90 mg/dL (74-106) 09/12/18 06:00 Calcium 8.0 mg/dL (8.5-10.1) L 09/12/18 06:00 Total Bilirubin 0.8 mg/dL (0.2-1) 09/12/18 06:00 AST 54 U/L (15-37) H 09/12/18 06:00 ALT 20 U/L (13-61) 09/12/18 06:00 Alkaline Phosphatase 97 U/L (45-117) 09/12/18 06:00 Total Protein 6.8 g/dl (6.4-8.2) 09/12/18 06:00 Albumin 3.9 g/dl (3.4-5.0) 09/12/18 06:00 CARDIAC ENZYMES Creatine Kinase 3882 U/L (26-192) H 09/12/18 06:00 Current Medications Generic Name Dose Route Start Last Admin Trade Name Freq PRN Reason Stop Dose Admin Acetaminophen 650 mg 09/13/18 08:33 09/13/18 09:41 Tylenol - PO 650 mg Q6H PRN Administration Fever Or Pain Enoxaparin Sodium 40 mg 09/12/18 10:00 09/13/18 08:53 Lovenox - SQ 40 mg DAILY ZARA Administration Sodium Chloride 1,000 mls @ 100 mls/hr 09/11/18 17:00 09/12/18 18:22 Normal Saline - IV Not Given ASDIR ZARA Quetiapine Fumarate 200 mg 09/13/18 22:00 Seroquel - PO HS [facility] Home Medications Medication Instructions Recorded Amitriptyline HCl 100 mg PO HS 09/11/18 Quetiapine Fumarate [Seroquel -] 300 mg PO HS 09/11/18 Temazepam [Restoril] 15 mg PO HS 09/11/18 IMPRESSION: No definite acute posttraumatic changes are seen involving the chest , abdomen or pelvis. Urinary bladder overdistention is noted with a volume of approximately 650 mL. Mild left lower lobe discoid atelectasis/scarring. Minimal bibasilar dependent subpleural atelectasis. A subacute versus chronic fracture of the right sacral ala is noted. Multilevel chronic vertebral body compression fractures including a marked chronic T7 fracture. Mediport catheter in place. 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 Correlate with prior imaging studies if available from a different facility. If prior studies are not available additional evaluation utilizing MRI/MRCP suggests approximately with intravenous contrast. Alternatively correlate with 2 month follow-up contrast enhanced CT. Status post cholecystectomy. Additional postsurgical changes are noted as discussed above. There is severe atrophy of the abdominal wall musculature bilaterally. Reported By: Jason Gandhi MD [id number] ASSESSMENT AND PLAN: Patient is a 63-year-old female with PMhx of alcohol abuse who presents from [facility] residential with confusion and change of mental status. #Acute change of mental status improved back to her bselin, no signs of infection, afebrile Psych consult: Dr. Berg, appreciated , TSh, b12, folate, within normal limit , continue PT . #Subacute vs Chronic fx of R sacral Ala, ortho consult appreciated Dr. Dyer, Ortho., no further intervention needed as per #Acute Rhabdomyolysis with hx of multiple falls CK elevated 09/10 4317--.3882 continue IV fluids #Anxiety/Depression/Bipolar:continue home meds ,seroquel 200mg HS as per psych. DVt Px: heparin Laboratory Tests 09/11/18 09/11/18 09/12/18 17:30 20:10 06:00 AST Ammonia 14.50 Creatine Kinase 4317 H 3882 H Vitamin B12 Serum Folate 17 TSH 2.99 09/12/18 09/12/18 06:00 06:00 AST 54 H Ammonia Creatine Kinase Vitamin B12 405 Serum Folate TSH
--- NOTE | 2018-09-13 18:12 | PN ---
Physical Exam: SUBJECTIVE: Patient seen and examined at bedside. No acute events overnight. Denies cp, sob, abd pain. Feels agitated because she wants to go outside to smoke. Per nurse, no acute events overnight. OBJECTIVE: Last Vital Signs Temp Pulse Resp BP Pulse Ox 98.4 F 90 20 106/61 98 09/13/18 17:23 09/13/18 17:23 09/13/18 17:23 09/13/18 17:23 09/11/18 20:00 GENERAL: a/o x 1, dysarthric, difficult to understand HEAD: nc, at, + Right periorbital ecchymoses EYES: conjunctiva clear. EARS, NOSE, THROAT: oropharynx clear without exudates. dry mucous membranes ABDOMEN: Minimal abd tenderness to palpation LOWER EXTREMITIES: No peripheral edema. PSYCHIATRIC: cooperative. at baseline. sitting in wheelchair at nurses station. CBCD WBC 7.4 K/mm3 (4.0-10.0) 09/12/18 06:00 RBC 2.92 M/mm3 (3.60-5.2) L 09/12/18 06:00 Hgb 9.5 GM/dL (10.7-15.3) L 09/12/18 06:00 Hct 27.9 % (32.4-45.2) L 09/12/18 06:00 MCV 95.6 fl (80-96) 09/12/18 06:00 MCHC 34.1 g/dl (32.0-36.0) 09/12/18 06:00 RDW 17.8 % (11.6-15.6) H 09/12/18 06:00 Plt Count 283 K/MM3 (134-434) 09/12/18 06:00 MPV 7.7 fl (7.5-11.1) 09/12/18 06:00 CMP Sodium 141 mmol/L (136-145) 09/12/18 06:00 Potassium 3.7 mmol/L (3.5-5.1) 09/12/18 06:00 Chloride 110 mmol/L (98-107) H 09/12/18 06:00 Carbon Dioxide 21 mmol/L (21-32) 09/12/18 06:00 Anion Gap 11 MMOL/L (8-16) 09/12/18 06:00 BUN 10 mg/dL (7-18) 09/12/18 06:00 Creatinine 0.6 mg/dL (0.55-1.3) 09/12/18 06:00 Creat Clearance w eGFR > 60 (>60) 09/12/18 06:00 Calcium 8.0 mg/dL (8.5-10.1) L 09/12/18 06:00 Total Bilirubin 0.8 mg/dL (0.2-1) 09/12/18 06:00 AST 54 U/L (15-37) H 09/12/18 06:00 ALT 20 U/L (13-61) 09/12/18 06:00 Alkaline Phosphatase 97 U/L (45-117) 09/12/18 06:00 Total Protein 6.8 g/dl (6.4-8.2) 09/12/18 06:00 Albumin 3.9 g/dl (3.4-5.0) 09/12/18 06:00 Active Medications Acetaminophen (Tylenol -) 650 mg PO Q6H PRN PRN Reason: Fever Or Pain Last Admin: 09/13/18 16:55 Dose: 650 mg Enoxaparin Sodium (Lovenox -) 40 mg SQ DAILY [facility] Last Admin: 09/13/18 13:56 Dose: Not Given Sodium Chloride (Normal Saline -) 1,000 mls @ 100 mls/hr IV ASDIR [facility] Last Admin: 09/12/18 18:22 Dose: Not Given Quetiapine Fumarate (Seroquel -) 200 mg PO HS [facility] IMAGING: * Head CT- maintenance mod volume loss and ventricular mass lesion, gross acute infarct, or IC hemorrhage. 1.8 x 1 cm nodule seen in scalp over forehead, likely sebaceous cyst. * Chest CT/CTAP- urinary bladder overdistension with volume of 650 mL; subacute chronic fx of R sacral ala noted. Probably 0.4 cm nonspecific pancreatic body cyst. Severe atrophy of the abd wall musculature b/l. * C-spine CT- No fx identified. ASSESSMENT/PLANS: 62F with past medical history significant for multiple falls, myelofibrosis, leukemia, HCV, depression, anxiety, bipolar disorder, arthritis, pancreatitis BIBA to the emergency department s/p fall and AMS. #Acute Encephalopathy; unknown etiology, unlikely infectious. -no signs of infection, afebrile -U/A unremarkable, CXR unremarkable, Head ct neg -TSH 2.99, B12 405, Folate 17, RPR non-reactive, Utox neg, ammonia normal -bladder scan: CTAP 09/10 showed bladder distention with 650ml. -Per psych, reduce Seroquel dose to 200 mg PO HS as it can cause hypotension resulting in falls. #Subacute vs Chronic fx of R sacral Ala -Per ortho, no surg intervention needed. Cont PT, WBAT, pain control. #Rhabdomyolysis; likely 2/2 fall. CK 4317 > 3882 > 2668 -NS @ 100 -cont to trend CK #Anxiety/Depression/Bipolar d/o -Per psych, reduce to Seroquel 200 mg HS. Hold home meds: Amitriptyline 100mg HS, Temazopam 15 HS as these can cause falls #FEN -NS @ 100 -monitor -Regular diet #DVT Lovenox 40 sq dispo -full code -d/c to [facility] Visit type - Emergency Visit Emergency Visit: Yes ED Registration Date: 09/11/18 Care time: The patient presented to the Emergency Department on the above date and was hospitalized for further evaluation of their emergent condition. - New Patient This patient is new to me today: No - Critical Care Critical Care patient: No
[2018-09-13] MEDS: SODIUM CHLORIDE 1,000 ML IV SCH (19:27)
[2018-09-13] MEDS ORDERED: QUEtiapine FUMARATE 100 MG TABLET (FP) PO SCH (22:00)
[2018-09-14 07:26] LABS: HEMATOCRIT 24.8 % (32.4-45.2); HEMOGLOBIN 8.4 GM/dL (10.7-15.3); MCH 32.8 pg (25.7-33.7); MCHC 34.1 g/dl (32.0-36.0); MEAN CELL VOLUME 96.2 fl (80-96); MEAN PLT VOLUME 8.2 fl (7.5-11.1); PLATELET COUNT 234 K/MM3 (134-434); RBC 2.57 M/mm3 (3.60-5.2); RDW 18.3 % (11.6-15.6); WHITE BLOOD COUNT 6.8 K/mm3 (4.0-10.0)
[2018-09-14 08:55] LABS: ANION GAP 7 MMOL/L (8-16); BLOOD UREA NITROGEN 13 mg/dL (7-18); CALCIUM 7.8 mg/dL (8.5-10.1); CHLORIDE 111 mmol/L (98-107); CO2 25 mmol/L (21-32); CREATININE 0.6 mg/dL (0.55-1.3); GLUCOSE,RANDOM 94 mg/dL (74-106); POTASSIUM 3.5 mmol/L (3.5-5.1); SODIUM 142 mmol/L (136-145)
[2018-09-14] MEDS: ENOXAPARIN NA (PORCINE) 40 MG/0.4 ML DISP.SYRIN SQ SCH (10:10)
--- NOTE | 2018-09-14 12:34 | PN ---
Progress Note (short form) - Note Progress Note: Vital Signs Temperature 98.5 F 09/14/18 06:19 Pulse Rate 77 09/14/18 06:19 Respiratory Rate 20 09/14/18 06:19 Blood Pressure 106/58 L 09/14/18 06:19 O2 Sat by Pulse Oximetry (%) 98 09/14/18 09:00 GENERAL: Arousable but lethargic HEAD: No signs of trauma, normocephalic, atraumatic EYES: PERRLA 5mm, EOMI, sclera anicteric, conjunctiva clear ENT: oropharynx clear without exudates. Moist mucosa. Tongue laceration midline NECK: Normal ROM, supple, no lymphadenopathy, JVD, or masses, no midline tenderness LUNGS: No distress, clear to auscultation bilaterally HEART: Regular rate and rhythm, normal S1 and S2, no murmurs, rubs or gallops. ABDOMEN: Soft, nontender, normoactive bowel sounds. No guarding, no rebound. No masses CHEST: Port on R side, no midline tenderness EXTREMITIES: Bruising on left arm, Normal range of motion, no edema. No clubbing or cyanosis. NEUROLOGICAL: Cranial nerves II through XII grossly intact. speech improved, moves all extremities CBCD WBC 6.8 K/mm3 (4.0-10.0) 09/14/18 06:00 RBC 2.57 M/mm3 (3.60-5.2) L 09/14/18 06:00 Hgb 8.4 GM/dL (10.7-15.3) L 09/14/18 06:00 Hct 24.8 % (32.4-45.2) L 09/14/18 06:00 MCV 96.2 fl (80-96) H 09/14/18 06:00 MCHC 34.1 g/dl (32.0-36.0) 09/14/18 06:00 RDW 18.3 % (11.6-15.6) H 09/14/18 06:00 Plt Count 234 K/MM3 (134-434) 09/14/18 06:00 MPV 8.2 fl (7.5-11.1) 09/14/18 06:00 CMP Sodium 142 mmol/L (136-145) 09/14/18 06:00 Potassium 3.5 mmol/L (3.5-5.1) 09/14/18 06:00 Chloride 111 mmol/L (98-107) H 09/14/18 06:00 Carbon Dioxide 25 mmol/L (21-32) 09/14/18 06:00 Anion Gap 7 MMOL/L (8-16) L 09/14/18 06:00 BUN 13 mg/dL (7-18) 09/14/18 06:00 Creatinine 0.6 mg/dL (0.55-1.3) 09/14/18 06:00 Creat Clearance w eGFR > 60 (>60) 09/14/18 06:00 Random Glucose 94 mg/dL (74-106) 09/14/18 06:00 Calcium 7.8 mg/dL (8.5-10.1) L 09/14/18 06:00 Total Bilirubin 0.8 mg/dL (0.2-1) 09/12/18 06:00 AST 54 U/L (15-37) H 09/12/18 06:00 ALT 20 U/L (13-61) 09/12/18 06:00 Alkaline Phosphatase 97 U/L (45-117) 09/12/18 06:00 Total Protein 6.8 g/dl (6.4-8.2) 09/12/18 06:00 Albumin 3.9 g/dl (3.4-5.0) 09/12/18 06:00 CARDIAC ENZYMES Creatine Kinase 1022 U/L (26-192) H 09/14/18 06:00 Current Medications Generic Name Dose Route Start Last Admin Trade Name Freq PRN Reason Stop Dose Admin Acetaminophen 650 mg 09/13/18 08:33 09/13/18 16:55 Tylenol - PO 650 mg Q6H PRN Administration Fever Or Pain Enoxaparin Sodium 40 mg 09/12/18 10:00 09/14/18 10:10 Lovenox - SQ 40 mg DAILY ZARA Administration Sodium Chloride 1,000 mls @ 100 mls/hr 09/11/18 17:00 09/13/18 19:27 Normal Saline - IV Not Given ASDIR ZARA Quetiapine Fumarate 200 mg 09/13/18 22:00 09/13/18 21:37 Seroquel - PO 200 mg HS ZARA Administration Microbiology 09/11/18 10:22 Urine - Urine - Catheterized Urine Culture - Final Contaminated: Please Repeat IMPRESSION: No definite acute posttraumatic changes are seen involving the chest , abdomen or pelvis. Urinary bladder overdistention is noted with a volume of approximately 650 mL. Mild left lower lobe discoid atelectasis/scarring. Minimal bibasilar dependent subpleural atelectasis. A subacute versus chronic fracture of the right sacral ala is noted. Multilevel chronic vertebral body compression fractures including a marked chronic T7 fracture. Mediport catheter in place. 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 Correlate with prior imaging studies if available from a different facility. If prior studies are not available additional evaluation utilizing MRI/MRCP suggests approximately with intravenous contrast. Alternatively correlate with 2 month follow-up contrast enhanced CT. Status post cholecystectomy. Additional postsurgical changes are noted as discussed above. There is severe atrophy of the abdominal wall musculature bilaterally. Reported By: Jason Gandhi MD [id number] ASSESSMENT AND PLAN: Patient is a 63-year-old female with PMhx of alcohol abuse who presents from [facility] residential with confusion and change of mental status. #Acute change of mental status improved back to her bselin, no signs of infection, afebrile Psych consult: Dr. Berg, appreciated , TSh, b12, folate, within normal limit , continue PT . #Subacute vs Chronic fx of R sacral Ala, ortho consult appreciated Dr. Dyer, Ortho., no further intervention needed as per #Acute Rhabdomyolysis with hx of multiple falls CK elevated 09/10 4317--.3882 continue IV fluids #Anxiety/Depression/Bipolar:continue home meds ,seroquel 200mg HS as per psych. DVt Px: heparin
[2018-09-14 14:30] VITALS: BP 119/64; PULSE 85; TEMP 98
--- NOTE | 2018-09-14 15:01 | DS ---
Physical Exam: SUBJECTIVE: Patient seen and examined Patient is feeling better, able to ambulate without any difficulty. OBJECTIVE: Vital Signs Temperature 98.0 F 09/14/18 14:28 Pulse Rate 85 09/14/18 14:28 Respiratory Rate 18 09/14/18 14:28 Blood Pressure 119/64 09/14/18 14:28 O2 Sat by Pulse Oximetry (%) 98 09/14/18 09:00 PHYSICAL EXAM GENERAL: The patient is awake, alert, and fully oriented, in no acute distress. HEAD: Normal with no signs of trauma. EYES: PERRL, extraocular movements intact, sclera anicteric, conjunctiva clear. ENT: Ears normal, oropharynx clear without exudates, moist mucous membranes. NECK: Trachea midline, full range of motion, supple. LUNGS: Breath sounds equal, clear to auscultation bilaterally, no wheezes, no crackles, no accessory muscle use. HEART: Regular rate and rhythm, S1, S2 without murmur, rub or gallop. ABDOMEN: Soft, nontender, nondistended, normoactive bowel sounds, no guarding, no rebound, no hepatosplenomegaly, no masses. EXTREMITIES: 2+ pulses, warm, well-perfused, no edema. NEUROLOGICAL: Cranial nerves II through XII grossly intact. Normal speech, gait not observed. PSYCH: Normal mood, normal affect. SKIN: Warm, dry, normal turgor, no rashes or lesions noted. LABS Laboratory Results - last 24 hr 09/14/18 09/14/18 06:00 06:00 WBC 6.8 RBC 2.57 L Hgb 8.4 L Hct 24.8 L MCV 96.2 H MCH 32.8 MCHC 34.1 RDW 18.3 H Plt Count 234 MPV 8.2 Sodium 142 Potassium 3.5 Chloride 111 H Carbon Dioxide 25 Anion Gap 7 L BUN 13 Creatinine 0.6 Creat Clearance w eGFR > 60 Random Glucose 94 Calcium 7.8 L Creatine Kinase 1022 H Creatine Kinase Index 0.1 CK-MB (CK-2) 1.2 Date of Admission:09/11/18 Date of Discharge: 09/14/18 09/11/18 10:22 Urine - Urine - Catheterized Urine Culture - Final Contaminated: Please Repeat IMPRESSION: No definite acute posttraumatic changes are seen involving the chest , abdomen or pelvis. Urinary bladder overdistention is noted with a volume of approximately 650 mL. Mild left lower lobe discoid atelectasis/scarring. Minimal bibasilar dependent subpleural atelectasis. A subacute versus chronic fracture of the right sacral ala is noted. Multilevel chronic vertebral body compression fractures including a marked chronic T7 fracture. Mediport catheter in place. 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 Correlate with prior imaging studies if available from a different facility. If prior studies are not available additional evaluation utilizing MRI/MRCP suggests approximately with intravenous contrast. Alternatively correlate with 2 month follow-up contrast enhanced CT. Status post cholecystectomy. Additional postsurgical changes are noted as discussed above. There is severe atrophy of the abdominal wall musculature bilaterally. Reported By: Jason Gandhi MD 0001 HOSPITAL COURSE: Patient is a 63-year-old female with PMhx of alcohol abuse who presents from [facility] with confusion and change of mental status. #Acute change of mental status improved back to her baseline, no signs of infection, afebrile, Psych consult: Dr. Berg, appreciated , TSh, b12, folate , within normal limit. Continue with 200mg seroquel as per pschy. recommendations. do not take your home meds. discontinued.explained to the patient. #Subacute vs Chronic fx of R sacral Ala, ortho consult appreciated Dr. Dyer, Ortho., no further intervention needed as per #Acute Rhabdomyolysis with hx of multiple falls CK elevated 09/10 4317--.3882--> 1000's today, continue to drink lots of fluid. #Anxiety/Depression/Bipolar:continue home meds ,seroquel 200mg HS as per psych. discharge patient home. Minutes to complete discharge: 40 Discharge Summary Reason For Visit: ALTERED MENTAL STATUS Condition: Stable - Instructions Diet, Activity, Other Instructions: You were seen in the hospital after complaints of a fall and mental status changes. In the hospital, a chest x-ray and head CT was done that were normal. You were not found to have any acute infection as the cause of your altered mental status. Additionally, you were seen by a psychiatrist and per the doctor's recommendation, your medication dosage for your psych med was adjusted. Although your mental status improved, you still had problems with your gait and as result you will need rehab services after discharge. You are being discharged home. MEDICATION RECOMMENDATIONS We have made the following changes to your medication(s). Please reduce your Seroquel dose to 200 mg once every night. Please also drink plenty of fluids. REFERRALS Please follow up with your primary care physician within 1 week. Please follow up with your psychiatrist within 1 week. If you experience mental status changes, another fall, persistent fainting episodes, or other associated symptoms, please make an appointment to see your primary care physician or proceed to your nearest emergency room immediately. Referrals: Bryanna Berg MD [Staff Physician] - 2 Weeks Disposition: HOME - Home Medications Comprehensive Discharge Medication List: Ambulatory Orders Amitriptyline HCl 100 mg PO HS 09/11/18 Quetiapine Fumarate [Seroquel -] 300 mg PO HS 09/11/18 Temazepam [Restoril] 15 mg PO HS 09/11/18 This patient is new to me today: No Emergency Visit: Yes ED Registration Date: 09/11/18 Care time: The patient presented to the Emergency Department on the above date and was hospitalized for further evaluation of their emergent condition. Critical Care patient: No - Discharge Referral Referred to [facility] Med P.C.: No Physician Referral: Rashawn Mayo MD ([facility]) (in one week)
== END 2018-09-14 15:55 | disposition home or self-care (01) | DRG 52 ==
LOC: JER 08:56 → JERBED 16:49 → J8W 19:24
PROVIDERS: ADMIT Internal Medicine; ATTEND Internal Medicine
DX: G93.40 Encephalopathy, unspecified (principal); M48.54XA Collapsed vertebra, not elsewhere classified, thoracic region, initial encounter for fracture; S32.19XA Other fracture of sacrum, initial encounter for closed fracture; M62.82 Rhabdomyolysis; D75.81 Myelofibrosis; F31.9 Bipolar disorder, unspecified; F41.9 Anxiety disorder, unspecified; B19.20 Unspecified viral hepatitis C without hepatic coma; Z88.0 Allergy status to penicillin; J98.11 Atelectasis; F10.10 Alcohol abuse, uncomplicated; R29.6 Repeated falls; W19.XXXA Unspecified fall, initial encounter; Y93.89 Activity, other specified; Y92.89 Other specified places as the place of occurrence of the external cause; Y99.8 Other external cause status
CPT/HCPCS: 36415; 70450-TC; 80048; 80053; 80307; 81003; 82140; 82550; 82553; 82607; 82746; 82962; 83735; 84100; 84443; 85025; 85027; 86593; 87086; 87389; 93005; 93010; 97116-GP; 97162-GP; 99283-25; J7030

== ENCOUNTER 2021-03-28 04:34 | Inpatient (IN) | payer OTHER ==
[2021-03-28] MEDS ORDERED: LIDOCAINE 5% TOPICAL PATCH ONE (04:40)
[2021-03-28] MEDS ORDERED: LIDOCAINE 5% TOPICAL PATCH TP ONE (04:41)
[2021-03-28] MEDS ORDERED: LACTATED RINGERS SOLUTION 1000 ML INFUS.BAG IV ONE (04:56)
[2021-03-28] MEDS ORDERED: ACETAMINOPHEN 1000 MG/100 ML VIAL (NON FORMULARY) IVPB ONE (04:56)
[2021-03-28] MEDS ORDERED: LORazepam 2 MG TABLET PO ONE (05:21)
[2021-03-28] MEDS ORDERED: ACETAMINOPHEN INJECTION 100 ML IVPB ONE (05:26)
[2021-03-28 05:37] LABS: VENOUS BASE EXCESS -5.1 mmol/L (-2-2); VENOUS PCO2 44.5 mmHg (38-52); VENOUS PH 7.293 (7.310-7.410)
[2021-03-28 05:41] LABS: INR 0.91 (0.83-1.09); PROTHROMBIN TIME (PATIENT) 11.2 SEC (9.7-13.0)
[2021-03-28 05:43] LABS: ACTIVATED PTT 20.5 SECONDS (25.2-36.5)
[2021-03-28] MEDS ORDERED: LORazepam 2 MG/ML SDV VIAL IVPUSH ONE (05:49)
[2021-03-28 05:50] LABS: HEMATOCRIT 23.8 % (32.4-45.2); MCH 33.9 pg (25.7-33.7); MCHC 33.6 g/dl (32.0-36.0); MEAN CELL VOLUME 100.7 fl (80-96); MEAN PLT VOLUME 8.7 fl (7.5-11.1); PLATELET COUNT 262 10^3/uL (134-434); RBC 2.36 M/mm3 (3.60-5.2); RDW 18.6 % (11.6-15.6)
[2021-03-28 05:54] LABS: CHLORIDE 109 mmol/L (98-107); SODIUM 142 mmol/L (136-145)
[2021-03-28 05:56] LABS: ALBUMIN 3.5 g/dl (3.4-5.0); ANION GAP 9 MMOL/L (8-16); CALCIUM 7.4 mg/dL (8.5-10.1); CO2 24 mmol/L (21-32); GLUCOSE,RANDOM 151 mg/dL (74-106)
[2021-03-28 05:59] LABS: CREATININE 1.1 mg/dL (0.55-1.3)
[2021-03-28 06:00] LABS: SGOT/AST 15 U/L (15-37); SGPT/ALT 16 U/L (13-61)
[2021-03-28 06:01] LABS: BILIRUBIN,TOTAL 0.2 mg/dL (0.2-1); TOT PROT 6.7 g/dl (6.4-8.2)
[2021-03-28 06:02] LABS: ALK PHOS 65 U/L (45-117)
[2021-03-28] MEDS ORDERED: VANCOMYCIN 1 GM in D5W (PRE-DOCKED) 1,000 MG/250 ML IVPB ONE (06:07)
[2021-03-28] MEDS ORDERED: AZITHROMYCIN IVPB 500 MG in DEXTROSE 5%-WATER - 250 ML IVPB ONE (06:11)
[2021-03-28] MEDS ORDERED: LORazepam 2 MG/ML SDV VIAL ONE (06:22)
[2021-03-28 06:30] LABS: LACTIC ACID 5.6 mmol/L (0.4-2.0)
[2021-03-28] MEDS ORDERED: LACTATED RINGERS SOLUTION 1,000 ML/1,000 ML INFUS.BAG IV STA (06:33)
[2021-03-28] MEDS ORDERED: AZITHROMYCIN IVPB 500 MG/250 ML BAG IVPB ONE (06:45)
[2021-03-28 07:00] LABS: ANISOCYTOSIS 1+; CORRECTED WBC 6.19 K/mm3; MACROCYTOSIS 1+; PLATELET ESTIMATE NORMAL
[2021-03-28] MEDS ORDERED: VANCOMYCIN 1 GRAM (PRE-DOCKED) 1,000 MG/250 ML BAG IVPB ONE (08:08)
[2021-03-28 08:11] LABS: PH,URINE 7.5 (5.0-8.0); URINE APPEARANCE CLEAR; URINE BILIRUBIN NEGATIVE (NEGATIVE); URINE COLOR YELLOW; URINE GLUCOSE (UA) NEGATIVE (NEGATIVE); URINE KETONE TRACE (NEGATIVE); URINE LEUK ESTERASE NEGATIVE (NEGATIVE); URINE NITRITE NEGATIVE (NEGATIVE); URINE PROTEIN NEGATIVE (NEGATIVE)
[2021-03-28] MEDS: traMADol HCL 50 MG TABLET PO PRN ×2 (13:08→21:03)
[2021-03-28 14:32] LABS: LACTIC ACID 2.1 mmol/L (0.4-2.0)
[2021-03-28] MEDS: ALBUTEROL SO4 2.5/IPRATROPIUM 0.5 INH SOL 3 ML VIAL.NEB. NEB SCH ×2 (15:37→20:10)
[2021-03-28] MEDS ORDERED: PANTOPRAZOLE 40 MG TABLET PO ONE (16:47)
[2021-03-28] MEDS ORDERED: DOCUSATE SODIUM 100 MG CAPSULE (FP) PO PRN (16:54)
[2021-03-28] MEDS ORDERED: LIDOCAINE PATCH REMOVAL MC ONE (17:00)
[2021-03-28 18:16] VITALS: BMI 32.3
[2021-03-28] MEDS ORDERED: PT OWN MED DRAWER 7, Y5N ONE (20:28)
[2021-03-28] MEDS ORDERED: MIRTAZAPINE 15 MG TABLET (FP) PO SCH (22:00)
[2021-03-28] MEDS ORDERED: QUEtiapine FUMARATE 200 MG TABLET PO SCH ×2 (22:00)
[2021-03-29] MEDS: traMADol HCL 50 MG TABLET PO PRN ×3 (03:37→14:24)
[2021-03-29] MEDS: PANTOPRAZOLE 40 MG TABLET PO SCH (09:26)
[2021-03-29] MEDS: ALBUTEROL SO4 2.5/IPRATROPIUM 0.5 INH SOL 3 ML VIAL.NEB. NEB SCH ×4 (09:27→19:45)
[2021-03-29] MEDS ORDERED: DIVALPROEX SODIUM 125 MG SPRINKLE CAPS PO SCH (10:00)
[2021-03-29] MEDS ORDERED: PT OWN MED DRAWER 7, Y5N ONE ×3 (11:04→21:05)
[2021-03-29] MEDS ORDERED: VANCOMYCIN 1 GM in D5W (PRE-DOCKED) 1,000 MG/250 ML IVPB ONE ×2 (14:15→14:30)
[2021-03-29] MEDS ORDERED: oxyCODONE HCL 5 MG TABLET PO PRN (15:56)
[2021-03-29] MEDS ORDERED: ACETAMINOPHEN 325 MG TABLET (FP) PO PRN ×3 (15:56→16:10)
[2021-03-29 16:32] LABS: HEMATOCRIT 19.1 % (32.4-45.2); MCH 32.9 pg (25.7-33.7); MCHC 33.2 g/dl (32.0-36.0); MEAN CELL VOLUME 99.1 fl (80-96); MEAN PLT VOLUME 7.8 fl (7.5-11.1); PLATELET COUNT 135 10^3/uL (134-434); RBC 1.93 M/mm3 (3.60-5.2); RDW 18.3 % (11.6-15.6)
[2021-03-29 16:36] LABS: HEMOGLOBIN 6.3 GM/dL (10.7-15.3)
[2021-03-29 16:52] LABS: CALCIUM 7.6 mg/dL (8.5-10.1)
[2021-03-29 16:53] LABS: ALBUMIN 2.8 g/dl (3.4-5.0); BLOOD UREA NITROGEN 18.3 mg/dL (7-18); MAGNESIUM 2.2 mg/dL (1.8-2.4)
[2021-03-29 16:58] LABS: BILIRUBIN,TOTAL 0.4 mg/dL (0.2-1); TOT PROT 5.8 g/dl (6.4-8.2)
[2021-03-29] MEDS ORDERED: ENOXAPARIN NA (PORCINE) 40 MG/0.4 ML DISP.SYRIN SQ SCH (17:15)
[2021-03-29 17:24] LABS: LACTIC ACID 2.6 mmol/L (0.4-2.0)
[2021-03-29 17:32] LABS: ANISOCYTOSIS 2+; MACROCYTOSIS 2+; PLATELET ESTIMATE DECREASED; TARGET CELLS 2+
[2021-03-29] MEDS ORDERED: SODIUM CHLORIDE 1,000 ML IV STA (18:54)
[2021-03-29] MEDS ORDERED: LIDOCAINE 5% TOPICAL PATCH TP ONE (19:30)
[2021-03-29] MEDS ORDERED: ACETAMINOPHEN 325 MG TABLET (FP) PO ONE (19:45)
[2021-03-29] MEDS ORDERED: oxyCODONE HCL 5 MG TABLET PO ONE (19:45)
[2021-03-29] MEDS: QUEtiapine FUMARATE 200 MG TABLET PO SCH (21:07)
[2021-03-29] MEDS: MIRTAZAPINE 15 MG TABLET (FP) PO SCH (21:07)
[2021-03-29] MEDS: RUXOLITINIB PHOSPHATE PO SCH (22:52)
[2021-03-30] MEDS: oxyCODONE HCL 5 MG TABLET PO PRN ×3 (01:08→20:00)
[2021-03-30] MEDS: ACETAMINOPHEN 325 MG TABLET (FP) PO PRN ×3 (01:09→20:00)
[2021-03-30] MEDS: ALBUTEROL SO4 2.5/IPRATROPIUM 0.5 INH SOL 3 ML VIAL.NEB. NEB SCH ×4 (08:00→21:30)
[2021-03-30] MEDS ORDERED: LIDOCAINE PATCH REMOVAL MC ONE (08:00)
[2021-03-30] MEDS ORDERED: MIRTAZAPINE 15 MG TABLET (FP) PO SCH (10:00)
[2021-03-30] MEDS: DIVALPROEX SODIUM 250 MG TABLET E.C. PO SCH (10:05)
[2021-03-30] MEDS: PANTOPRAZOLE 40 MG TABLET PO SCH (10:05)
[2021-03-30] MEDS: RUXOLITINIB PHOSPHATE PO SCH ×2 (10:06→21:08)
[2021-03-30 14:38] LABS: BASO % 0.5 % (0-2.0); EOS % 1.4 % (0-4.5); LYMPH % 12.2 % (8-40); MCH 33.4 pg (25.7-33.7); MCHC 33.7 g/dl (32.0-36.0); MEAN PLT VOLUME 8.1 fl (7.5-11.1); MONO % 5.4 % (3.8-10.2); NEUT % 80.5 % (42.8-82.8); PLATELET COUNT 125 10^3/uL (134-434); RBC 1.82 M/mm3 (3.60-5.2); RDW 18.5 % (11.6-15.6); WHITE BLOOD COUNT 6.6 K/mm3 (4.0-10.0)
[2021-03-30 14:56] LABS: HEMOGLOBIN 6.1 GM/dL (10.7-15.3)
[2021-03-30 14:59] LABS: ALBUMIN 2.5 g/dl (3.4-5.0); CALCIUM 7.6 mg/dL (8.5-10.1)
[2021-03-30 15:00] LABS: MAGNESIUM 2.2 mg/dL (1.8-2.4)
[2021-03-30 15:03] LABS: CREATININE 0.9 mg/dL (0.55-1.3); PHOSPHOROUS 3.3 mg/dL (2.5-4.9)
[2021-03-30 15:04] LABS: BILIRUBIN,TOTAL 0.2 mg/dL (0.2-1); TOT PROT 5.3 g/dl (6.4-8.2)
[2021-03-30 15:20] LABS: BLOOD UREA NITROGEN 10.2 mg/dL (7-18)
[2021-03-30] MEDS: NICOTINE 14 MG/24 HOURS TOPICAL PATCH TD SCH (15:37)
[2021-03-30 15:40] LABS: ANISOCYTOSIS 1+; MACROCYTOSIS 1+; OVALOCYTE 1+; PLATELET ESTIMATE DECREASED
[2021-03-30] MEDS: QUEtiapine FUMARATE 200 MG TABLET PO SCH (21:08)
[2021-03-30] MEDS: MIRTAZAPINE 15 MG TABLET (FP) PO SCH (21:08)
[2021-03-31] MEDS: ACETAMINOPHEN 325 MG TABLET (FP) PO PRN ×3 (04:00→20:04)
[2021-03-31] MEDS: oxyCODONE HCL 5 MG TABLET PO PRN ×3 (04:00→20:03)
[2021-03-31] MEDS: NICOTINE 14 MG/24 HOURS TOPICAL PATCH TD SCH ×2 (06:27→09:51)
[2021-03-31] MEDS: ALBUTEROL SO4 2.5/IPRATROPIUM 0.5 INH SOL 3 ML VIAL.NEB. NEB SCH ×4 (07:35→20:00)
[2021-03-31 08:14] LABS: HEMATOCRIT 26.1 % (32.4-45.2); HEMOGLOBIN 9.2 GM/dL (10.7-15.3); MCH 31.9 pg (25.7-33.7); MCHC 35.1 g/dl (32.0-36.0); MEAN CELL VOLUME 90.9 fl (80-96); MEAN PLT VOLUME 8.1 fl (7.5-11.1); PLATELET COUNT 138 10^3/uL (134-434); RBC 2.88 M/mm3 (3.60-5.2); RDW 19.7 % (11.6-15.6); WHITE BLOOD COUNT 6.5 K/mm3 (4.0-10.0)
[2021-03-31 08:38] LABS: BILIRUBIN,DIRECT 0.1 mg/dL (0.0-0.2); CREATININE 0.9 mg/dL (0.55-1.3)
[2021-03-31 08:39] LABS: BILIRUBIN,TOTAL 0.5 mg/dL (0.2-1)
[2021-03-31] MEDS: PANTOPRAZOLE 40 MG TABLET PO SCH (09:49)
[2021-03-31] MEDS: DIVALPROEX SODIUM 250 MG TABLET E.C. PO SCH (09:50)
[2021-03-31] MEDS: RUXOLITINIB PHOSPHATE PO SCH ×2 (09:51→21:14)
[2021-03-31] MEDS: MIRTAZAPINE 15 MG TABLET (FP) PO SCH (21:14)
[2021-03-31] MEDS: QUEtiapine FUMARATE 200 MG TABLET PO SCH (21:14)
[2021-04-01] MEDS: oxyCODONE HCL 5 MG TABLET PO PRN ×2 (04:04→12:01)
[2021-04-01] MEDS: ACETAMINOPHEN 325 MG TABLET (FP) PO PRN ×2 (04:05→12:03)
[2021-04-01] MEDS: ALBUTEROL SO4 2.5/IPRATROPIUM 0.5 INH SOL 3 ML VIAL.NEB. NEB SCH ×3 (07:27→16:21)
[2021-04-01 08:13] LABS: HEMATOCRIT 30.9 % (32.4-45.2); HEMOGLOBIN 10.4 GM/dL (10.7-15.3); MCH 30.8 pg (25.7-33.7); MCHC 33.6 g/dl (32.0-36.0); MEAN CELL VOLUME 91.6 fl (80-96); MEAN PLT VOLUME 7.8 fl (7.5-11.1); PLATELET COUNT 144 10^3/uL (134-434); RBC 3.38 M/mm3 (3.60-5.2); RDW 20.1 % (11.6-15.6)
[2021-04-01 08:45] LABS: CALCIUM 8.5 mg/dL (8.5-10.1)
[2021-04-01 08:46] LABS: BLOOD UREA NITROGEN 10.5 mg/dL (7-18)
[2021-04-01 08:49] LABS: CREATININE 1.1 mg/dL (0.55-1.3)
[2021-04-01 08:57] LABS: ANISOCYTOSIS 2+; MACROCYTOSIS 1+; OVALOCYTE 1+; PLATELET ESTIMATE DECREASED
[2021-04-01] MEDS: DIVALPROEX SODIUM 250 MG TABLET E.C. PO SCH (09:59)
[2021-04-01] MEDS: PANTOPRAZOLE 40 MG TABLET PO SCH (09:59)
[2021-04-01] MEDS: NICOTINE 14 MG/24 HOURS TOPICAL PATCH TD SCH (10:00)
[2021-04-01] MEDS: RUXOLITINIB PHOSPHATE PO SCH (10:00)
[2021-04-01] MEDS ORDERED: APIXABAN 5 MG TABLET PO SCH (13:15)
[2021-04-01 13:27] LABS: INR 0.96 (0.83-1.09); PROTHROMBIN TIME (PATIENT) 11.6 SEC (9.7-13.0)
[2021-04-01 13:30] LABS: ACTIVATED PTT 26.7 SECONDS (25.2-36.5)
[2021-04-01 15:09] VITALS: BP 125/74; PULSE 93; TEMP 98.2
== END 2021-04-01 18:36 | DRG 193 ==
LOC: JER 04:34 → JERBED 06:34 → J4W 12:57
PROVIDERS: ADMIT Internal Medicine; ATTEND Internal Medicine
PROC: 30233N1 Transfusion of Nonautologous Red Blood Cells into Peripheral Vein, Percutaneous Approach (ICD-10-PCS; principal; 2021-03-30)
DX: J18.9 Pneumonia, unspecified organism (principal); I26.99 Other pulmonary embolism without acute cor pulmonale; J96.01 Acute respiratory failure with hypoxia; D75.81 Myelofibrosis; E87.2 Acidosis; J44.9 Chronic obstructive pulmonary disease, unspecified; F20.9 Schizophrenia, unspecified; F31.9 Bipolar disorder, unspecified; B18.2 Chronic viral hepatitis C; D53.9 Nutritional anemia, unspecified; M54.5 Low back pain; Z87.11 Personal history of peptic ulcer disease
CPT/HCPCS: 36415; 36430; 71045-TC-FY; 71275-TC; 80048; 80053; 80164; 81003; 82247; 82248; 82607; 82728; 82746; 82803; 83010; 83540; 83550; 83605; 83615; 83735; 84100; 84484; 85025; 85027; 85045; 85610; 85730; 86850; 86900; 86901; 86922; 87040; 87086; 87804; 93005; 93010; 93970-TC; 94640; 94761; 99285-25; C9803; J0131; P9058; Q9967; U0003; U0005

== ENCOUNTER 2021-08-10 14:18 | Inpatient (IN) | payer OTHER ==
[2021-08-10] MEDS ORDERED: ACETAMINOPHEN 325 MG TABLET (FP) PO ONE (16:57)
[2021-08-10] MEDS ORDERED: ACETAMINOPHEN 325 MG TABLET (FP) ONE (17:21)
[2021-08-10] MEDS ORDERED: APIXABAN 5 MG TABLET PO ONE (19:15)
[2021-08-10] MEDS ORDERED: MELATONIN 5 MG TABLETS PO ONE (19:17)
[2021-08-10] MEDS ORDERED: MIRTAZAPINE 30 MG TABLET PO ONE (19:17)
[2021-08-10] MEDS ORDERED: QUEtiapine FUMARATE 400 MG TABLET PO ONE (19:17)
[2021-08-10] MEDS ORDERED: DIVALPROEX SODIUM 250 MG TABLET E.C. PO ONE (19:18)
[2021-08-10] MEDS ORDERED: MELATONIN 5 MG TABLETS ONE (19:43)
[2021-08-10] MEDS ORDERED: QUEtiapine FUMARATE 100 MG TABLET (FP) ONE (19:44)
[2021-08-10] MEDS ORDERED: APIXABAN 5 MG TABLET ONE (19:44)
[2021-08-10] MEDS ORDERED: MIRTAZAPINE 15 MG TABLET (FP) ONE (19:45)
[2021-08-10] MEDS ORDERED: DIVALPROEX SODIUM 125 MG TABLET E.C. ONE (19:45)
[2021-08-10 20:28] LABS: BASO % 0.3 % (0-2.0); EOS % 1.5 % (0-4.5); HEMATOCRIT 19.2 % (32.4-45.2); MCH 34.6 pg (25.7-33.7); MEAN PLT VOLUME 8.1 fl (7.5-11.1); MONO % 11.4 % (3.8-10.2); NEUT % 72.8 % (42.8-82.8); PLATELET COUNT 253 10^3/uL (134-434); RBC 1.83 M/mm3 (3.60-5.2); RDW 18.5 % (11.6-15.6); WHITE BLOOD COUNT 10.4 K/mm3 (4.0-10.0)
[2021-08-10 20:38] LABS: ALBUMIN 3.5 g/dl (3.4-5.0); BLOOD UREA NITROGEN 12.1 mg/dL (7-18); CALCIUM 8.3 mg/dL (8.5-10.1)
[2021-08-10 20:41] LABS: CREATININE 1.1 mg/dL (0.55-1.3)
[2021-08-10 20:43] LABS: BILIRUBIN,TOTAL 0.2 mg/dL (0.2-1); TOT PROT 6.4 g/dl (6.4-8.2)
[2021-08-10 20:57] LABS: HEMOGLOBIN 6.3 GM/dL (10.7-15.3)
[2021-08-10 21:29] LABS: ANISOCYTOSIS 3+; MACROCYTOSIS 0; OVALOCYTE 1+; PLATELET ESTIMATE NORMAL; TEAR DROP CELLS 1+
[2021-08-10 22:37] LABS: INR 1.34 (0.83-1.09)
[2021-08-10] MEDS ORDERED: DEXAMETHASONE SOD PHOSPHATE 10 MG/1 ML VIAL IVPUSH ONE (23:01)
[2021-08-11] MEDS ORDERED: DEXAMETHASONE SOD PHOSPHATE 10 MG/1 ML VIAL ONE (00:03)
[2021-08-11] MEDS ORDERED: ASCORBIC ACID 500 MG TABLET (FP) ONE (00:03)
[2021-08-11] MEDS: ASCORBIC ACID 500 MG TABLET (FP) PO SCH ×3 (00:17→21:02)
[2021-08-11 03:22] LABS: HEMATOCRIT 23.7 % (32.4-45.2); MCH 32.1 pg (25.7-33.7); MCHC 33.8 g/dl (32.0-36.0); MEAN PLT VOLUME 7.4 fl (7.5-11.1); PLATELET COUNT 207 10^3/uL (134-434); RDW 24.3 % (11.6-15.6); WHITE BLOOD COUNT 7.5 K/mm3 (4.0-10.0)
[2021-08-11 03:28] VITALS: BMI 31.2
[2021-08-11] MEDS ORDERED: PATIENT'S OWN MEDICATION (NON-FORMULARY) (Apixaban [Eliquis - Starter Pack (For Vte)] 5 MG PO SCH (03:30)
[2021-08-11] MEDS ORDERED: PATIENT'S OWN MEDICATION (NON-FORMULARY) (Oxycodone Hcl/Acetaminophen [Endocet 10-325 Mg T PO SCH (06:00)
[2021-08-11] MEDS: oxyCODONE HCL 5 MG TABLET PO SCH ×3 (06:35→21:01)
[2021-08-11] MEDS: ACETAMINOPHEN 325 MG TABLET (FP) PO SCH ×4 (06:37→21:00)
[2021-08-11] MEDS: DOCUSATE SODIUM 100 MG CAPSULE (FP) PO SCH ×3 (06:38→21:02)
[2021-08-11 09:06] LABS: PH,URINE 7.5 (5.0-8.0); URINE APPEARANCE CLEAR; URINE BILIRUBIN NEGATIVE (NEGATIVE); URINE COLOR YELLOW; URINE GLUCOSE (UA) NEGATIVE (NEGATIVE); URINE KETONE NEGATIVE (NEGATIVE); URINE LEUK ESTERASE NEGATIVE (NEGATIVE); URINE NITRITE NEGATIVE (NEGATIVE); URINE PROTEIN NEGATIVE (NEGATIVE); URINE UROBILINOGEN 0.2 mg/dL (0.2-1.0)
[2021-08-11] MEDS ORDERED: PT OWN MED DRAWER 7, Y5N ONE ×2 (09:15→20:54)
[2021-08-11] MEDS ORDERED: ENOXAPARIN NA (PORCINE) 40 MG/0.4 ML DISP.SYRIN SQ SCH (10:00)
[2021-08-11] MEDS ORDERED: PANTOPRAZOLE 40 MG TABLET PO SCH (10:00)
[2021-08-11] MEDS ORDERED: PATIENT'S OWN MEDICATION (NON-FORMULARY) (Sofosbuvir/Velpatasvir [Epclusa 400 Mg-100 Mg Ta PO SCH ×2 (10:00)
[2021-08-11] MEDS: MIRTAZAPINE 30 MG TABLET PO SCH ×3 (10:27→21:02)
[2021-08-11] MEDS: DIVALPROEX SODIUM 250 MG TABLET E.C. PO SCH (10:27)
[2021-08-11] MEDS: POLYETHYLENE GLYCOL (HEALTHYLAX) 3350 17 GM PACKET PO SCH (10:32)
[2021-08-11] MEDS: LURASIDONE HCL 20 MG TABLET PO SCH (12:47)
[2021-08-11] MEDS ORDERED: ACETAMINOPHEN 500 MG TABLET (FP) PO ONE (14:56)
[2021-08-11] MEDS: VANCOMYCIN 1 GRAM (PRE-DOCKED) 1,000 MG/250 ML BAG IVPB SCH (17:59)
[2021-08-11] MEDS ORDERED: REMDESIVIR 200 MG in SODIUM CHLORIDE 250 ML IVPB ONE (18:00)
[2021-08-11] MEDS: APIXABAN 2.5 MG TABLET PO SCH (21:02)
[2021-08-11] MEDS: QUEtiapine FUMARATE 200 MG TABLET PO SCH (21:09)
[2021-08-11] MEDS ORDERED: ACETAMINOPHEN 325 MG TABLET (FP) PO ONE (22:02)
[2021-08-12] MEDS: oxyCODONE HCL 5 MG TABLET PO PRN ×2 (06:00→14:16)
[2021-08-12] MEDS: ACETAMINOPHEN 325 MG TABLET (FP) PO PRN ×2 (06:01→14:16)
[2021-08-12] MEDS: DOCUSATE SODIUM 100 MG CAPSULE (FP) PO SCH ×3 (06:02→21:31)
[2021-08-12] MEDS ORDERED: INSULIN SLIDING SCALE (NOVOLOG) 1 VIAL SQ ONE (09:19)
[2021-08-12] MEDS: DEXAMETHASONE SOD PHOSPHATE 4 MG/1 ML VIAL IVPUSH SCH (10:04)
[2021-08-12] MEDS: POLYETHYLENE GLYCOL (HEALTHYLAX) 3350 17 GM PACKET PO SCH ×2 (10:05→11:14)
[2021-08-12] MEDS: APIXABAN 2.5 MG TABLET PO SCH ×2 (10:05→21:13)
[2021-08-12] MEDS: BACLOFEN 10 MG TABLET (FP) PO PRN ×2 (10:05→21:13)
[2021-08-12] MEDS: DIVALPROEX SODIUM 250 MG TABLET E.C. PO SCH (10:05)
[2021-08-12] MEDS: ASCORBIC ACID 500 MG TABLET (FP) PO SCH ×2 (10:06→21:12)
[2021-08-12] MEDS: LURASIDONE HCL 20 MG TABLET PO SCH (10:06)
[2021-08-12] MEDS: REMDESIVIR 100 MG in SODIUM CHLORIDE 250 ML IVPB SCH (10:31)
[2021-08-12] MEDS ORDERED: ACETAMINOPHEN 325 MG TABLET (FP) PO ONE ×2 (11:38→21:56)
[2021-08-12 13:16] LABS: HEMOGLOBIN 7.7 GM/dL (10.7-15.3); RBC 2.43 M/mm3 (3.60-5.2); WHITE BLOOD COUNT 4.3 K/mm3 (4.0-10.0)
[2021-08-12 13:17] LABS: HEMATOCRIT 23.2 % (32.4-45.2); MCH 31.8 pg (25.7-33.7); MCHC 33.4 g/dl (32.0-36.0); MEAN CELL VOLUME 95.3 fl (80-96); MEAN PLT VOLUME 8.1 fl (7.5-11.1); PLATELET COUNT 172 10^3/uL (134-434); RDW 24.7 % (11.6-15.6)
[2021-08-12 13:25] LABS: ALBUMIN 2.9 g/dl (3.4-5.0); BLOOD UREA NITROGEN 18.6 mg/dL (7-18); CALCIUM 7.5 mg/dL (8.5-10.1); MAGNESIUM 2.1 mg/dL (1.8-2.4)
[2021-08-12 13:29] LABS: BILIRUBIN,TOTAL 0.2 mg/dL (0.2-1)
[2021-08-12 14:13] LABS: ANISOCYTOSIS 2+; MACROCYTOSIS 0; OVALOCYTE 1+; PLATELET ESTIMATE NORMAL; TEAR DROP CELLS 1+
[2021-08-12] MEDS: VANCOMYCIN 1 GRAM (PRE-DOCKED) 1,000 MG/250 ML BAG IVPB SCH (17:21)
[2021-08-12] MEDS ORDERED: PT OWN MED DRAWER 7, Y5N ONE (21:10)
[2021-08-12] MEDS: MIRTAZAPINE 30 MG TABLET PO SCH (21:13)
[2021-08-12] MEDS: QUEtiapine FUMARATE 200 MG TABLET PO SCH (21:13)
[2021-08-12] MEDS ORDERED: oxyCODONE HCL 5 MG TABLET PO ONE (21:56)
[2021-08-13] MEDS: DOCUSATE SODIUM 100 MG CAPSULE (FP) PO SCH ×3 (06:02→20:59)
[2021-08-13] MEDS: oxyCODONE HCL 5 MG TABLET PO PRN ×3 (07:56→18:20)
[2021-08-13] MEDS: DIVALPROEX SODIUM 250 MG TABLET E.C. PO SCH (10:18)
[2021-08-13] MEDS: POLYETHYLENE GLYCOL (HEALTHYLAX) 3350 17 GM PACKET PO SCH (10:19)
[2021-08-13] MEDS: ASCORBIC ACID 500 MG TABLET (FP) PO SCH ×2 (10:19→20:59)
[2021-08-13] MEDS: DEXAMETHASONE SOD PHOSPHATE 4 MG/1 ML VIAL IVPUSH SCH (10:19)
[2021-08-13] MEDS: APIXABAN 2.5 MG TABLET PO SCH ×2 (10:19→20:59)
[2021-08-13] MEDS: LURASIDONE HCL 20 MG TABLET PO SCH (10:20)
[2021-08-13] MEDS: PATIENT'S OWN MEDICATION (NON-FORMULARY) (Ruxolitinib Phosphate [Jakafi] 5 MG Tablet) PO SCH ×2 (10:21→21:00)
[2021-08-13] MEDS: REMDESIVIR 100 MG in SODIUM CHLORIDE 250 ML IVPB SCH (10:23)
[2021-08-13 10:42] LABS: HEMATOCRIT 22.5 % (32.4-45.2); HEMOGLOBIN 7.5 GM/dL (10.7-15.3); MCH 31.7 pg (25.7-33.7); MCHC 33.4 g/dl (32.0-36.0); MEAN CELL VOLUME 94.9 fl (80-96); MEAN PLT VOLUME 7.9 fl (7.5-11.1); PLATELET COUNT 149 10^3/uL (134-434); RBC 2.37 M/mm3 (3.60-5.2); WHITE BLOOD COUNT 2.9 K/mm3 (4.0-10.0)
[2021-08-13 10:54] LABS: ALBUMIN 2.5 g/dl (3.4-5.0); BLOOD UREA NITROGEN 17.8 mg/dL (7-18); CALCIUM 7.5 mg/dL (8.5-10.1); MAGNESIUM 2.3 mg/dL (1.8-2.4)
[2021-08-13 10:56] LABS: CREATININE 0.9 mg/dL (0.55-1.3)
[2021-08-13 10:59] LABS: BILIRUBIN,TOTAL 0.3 mg/dL (0.2-1); TOT PROT 5.4 g/dl (6.4-8.2)
[2021-08-13 11:13] LABS: ANISOCYTOSIS 2+; MACROCYTOSIS 0; PLATELET ESTIMATE DECREASED
[2021-08-13] MEDS ORDERED: POTASSIUM CHLORIDE TABS 20 MEQ TABLET.ER (FP) PO ONE (12:00)
[2021-08-13] MEDS: ACETAMINOPHEN 325 MG TABLET (FP) PO PRN (18:21)
[2021-08-13] MEDS: QUEtiapine FUMARATE 200 MG TABLET PO SCH (20:59)
[2021-08-13] MEDS ORDERED: MIRTAZAPINE 30 MG TABLET PO SCH (22:00)
[2021-08-14] MEDS: DOCUSATE SODIUM 100 MG CAPSULE (FP) PO SCH ×3 (06:13→17:14)
[2021-08-14] MEDS ORDERED: PT OWN MED DRAWER 7, Y5N ONE ×2 (08:39→17:09)
[2021-08-14] MEDS: oxyCODONE HCL 5 MG TABLET PO PRN ×3 (08:44→17:00)
[2021-08-14] MEDS: DEXAMETHASONE SOD PHOSPHATE 4 MG/1 ML VIAL IVPUSH SCH ×2 (08:44→12:08)
[2021-08-14] MEDS: ASCORBIC ACID 500 MG TABLET (FP) PO SCH ×3 (08:44→17:11)
[2021-08-14] MEDS: APIXABAN 2.5 MG TABLET PO SCH ×3 (08:45→17:21)
[2021-08-14] MEDS: POLYETHYLENE GLYCOL (HEALTHYLAX) 3350 17 GM PACKET PO SCH ×2 (08:45→12:09)
[2021-08-14] MEDS: PATIENT'S OWN MEDICATION (NON-FORMULARY) (Ruxolitinib Phosphate [Jakafi] 5 MG Tablet) PO SCH ×2 (08:46→12:10)
[2021-08-14] MEDS: LURASIDONE HCL 20 MG TABLET PO SCH ×2 (08:47→12:09)
[2021-08-14] MEDS: DIVALPROEX SODIUM 250 MG TABLET E.C. PO SCH ×2 (08:47→12:08)
[2021-08-14] MEDS: REMDESIVIR 100 MG in SODIUM CHLORIDE 250 ML IVPB SCH (12:09)
[2021-08-14 13:09] LABS: HEMATOCRIT 22.6 % (32.4-45.2); HEMOGLOBIN 7.5 GM/dL (10.7-15.3); MCH 31.4 pg (25.7-33.7); MCHC 33.3 g/dl (32.0-36.0); MEAN CELL VOLUME 94.2 fl (80-96); PLATELET COUNT 138 10^3/uL (134-434); RDW 23.5 % (11.6-15.6); WHITE BLOOD COUNT 2.8 K/mm3 (4.0-10.0)
[2021-08-14 13:25] LABS: CALCIUM 7.6 mg/dL (8.5-10.1)
[2021-08-14 13:26] LABS: ALBUMIN 2.7 g/dl (3.4-5.0); BLOOD UREA NITROGEN 16.2 mg/dL (7-18); MAGNESIUM 2.6 mg/dL (1.8-2.4)
[2021-08-14 13:29] LABS: CREATININE 0.8 mg/dL (0.55-1.3)
[2021-08-14 13:30] LABS: BILIRUBIN,TOTAL 0.2 mg/dL (0.2-1); TOT PROT 5.4 g/dl (6.4-8.2)
[2021-08-14 14:04] LABS: ANISOCYTOSIS 1+; MACROCYTOSIS 0; PLATELET ESTIMATE DECREASED
[2021-08-14] MEDS: MIRTAZAPINE 30 MG TABLET PO SCH (17:11)
[2021-08-14] MEDS: RUXOLITINIB PHOSPHATE PO SCH (17:12)
[2021-08-14] MEDS: QUEtiapine FUMARATE 200 MG TABLET PO SCH (17:13)
[2021-08-14] MEDS ORDERED: APIXABAN 2.5 MG TABLET PO SCH (18:00)
[2021-08-15] MEDS ORDERED: PT OWN MED DRAWER 7, Y5N ONE (07:30)
[2021-08-15] MEDS: DEXAMETHASONE 4 MG TABLET (FP) PO SCH (08:29)
[2021-08-15] MEDS: DIVALPROEX SODIUM 250 MG TABLET E.C. PO SCH (08:29)
[2021-08-15] MEDS: ASCORBIC ACID 500 MG TABLET (FP) PO SCH ×2 (08:29→17:02)
[2021-08-15] MEDS: oxyCODONE HCL 5 MG TABLET PO PRN ×2 (08:30→12:38)
[2021-08-15] MEDS: RUXOLITINIB PHOSPHATE PO SCH ×2 (08:31→17:03)
[2021-08-15] MEDS: LURASIDONE HCL 20 MG TABLET PO SCH (08:31)
[2021-08-15] MEDS: APIXABAN 2.5 MG TABLET PO SCH ×2 (08:31→17:02)
[2021-08-15] MEDS: POLYETHYLENE GLYCOL (HEALTHYLAX) 3350 17 GM PACKET PO SCH (08:31)
[2021-08-15 08:44] LABS: HEMATOCRIT 21.7 % (32.4-45.2); HEMOGLOBIN 7.4 GM/dL (10.7-15.3); MCHC 34.1 g/dl (32.0-36.0); MEAN CELL VOLUME 93.8 fl (80-96); PLATELET COUNT 138 10^3/uL (134-434); RBC 2.32 M/mm3 (3.60-5.2); RDW 22.7 % (11.6-15.6); WHITE BLOOD COUNT 3.1 K/mm3 (4.0-10.0)
[2021-08-15 09:20] LABS: ALBUMIN 2.7 g/dl (3.4-5.0); CALCIUM 7.6 mg/dL (8.5-10.1)
[2021-08-15 09:21] LABS: BLOOD UREA NITROGEN 16.3 mg/dL (7-18); MAGNESIUM 2.5 mg/dL (1.8-2.4)
[2021-08-15 09:22] LABS: BILIRUBIN,TOTAL 0.2 mg/dL (0.2-1)
[2021-08-15 09:23] LABS: CREATININE 0.8 mg/dL (0.55-1.3); TOT PROT 5.4 g/dl (6.4-8.2)
[2021-08-15] MEDS ORDERED: DEXAMETHASONE 4 MG TABLET (FP) PO SCH (10:00)
[2021-08-15] MEDS: REMDESIVIR 100 MG in SODIUM CHLORIDE 250 ML IVPB SCH (10:15)
[2021-08-15 10:59] LABS: ANISOCYTOSIS 1+; MACROCYTOSIS 0; OVALOCYTE 1+; PLATELET ESTIMATE NORMAL; TEAR DROP CELLS 1+
[2021-08-15] MEDS: DOCUSATE SODIUM 100 MG CAPSULE (FP) PO SCH (17:00)
[2021-08-15] MEDS: MIRTAZAPINE 30 MG TABLET PO SCH (17:01)
[2021-08-15] MEDS: oxyCODONE HCL 5 MG TABLET PO SCH (17:02)
[2021-08-15] MEDS: QUEtiapine FUMARATE 200 MG TABLET PO SCH (17:03)
[2021-08-15] MEDS ORDERED: oxyCODONE HCL 5 MG TABLET PO STA (17:04)
[2021-08-16] MEDS ORDERED: oxyCODONE HCL 5 MG TABLET PO ONE (08:15)
[2021-08-16] MEDS: APIXABAN 2.5 MG TABLET PO SCH ×2 (08:21→17:30)
[2021-08-16] MEDS: ASCORBIC ACID 500 MG TABLET (FP) PO SCH ×2 (08:22→17:29)
[2021-08-16] MEDS: DEXAMETHASONE 4 MG TABLET (FP) PO SCH (08:22)
[2021-08-16] MEDS: RUXOLITINIB PHOSPHATE PO SCH ×2 (08:23→17:32)
[2021-08-16] MEDS: POLYETHYLENE GLYCOL (HEALTHYLAX) 3350 17 GM PACKET PO SCH (08:23)
[2021-08-16] MEDS: BACLOFEN 10 MG TABLET (FP) PO PRN ×2 (08:23→17:30)
[2021-08-16] MEDS: oxyCODONE HCL 5 MG TABLET PO SCH ×3 (12:02→21:41)
[2021-08-16] MEDS: LURASIDONE HCL 20 MG TABLET PO SCH (12:39)
[2021-08-16] MEDS: DIVALPROEX SODIUM 250 MG TABLET E.C. PO SCH (12:39)
[2021-08-16] MEDS ORDERED: PATIENT'S OWN MEDICATION (NON-FORMULARY) (Sofosbuvir/Velpatasvir [Epclusa 400 Mg-100 Mg Ta PO ONE (12:45)
[2021-08-16 13:20] LABS: HEMATOCRIT 23.2 % (32.4-45.2); HEMOGLOBIN 7.9 GM/dL (10.7-15.3); MCH 32.2 pg (25.7-33.7); MCHC 33.9 g/dl (32.0-36.0); MEAN CELL VOLUME 94.9 fl (80-96); MEAN PLT VOLUME 7.8 fl (7.5-11.1); PLATELET COUNT 152 10^3/uL (134-434); RBC 2.45 M/mm3 (3.60-5.2); RDW 22.9 % (11.6-15.6); WHITE BLOOD COUNT 4.4 K/mm3 (4.0-10.0)
[2021-08-16 13:36] LABS: CALCIUM 7.9 mg/dL (8.5-10.1)
[2021-08-16 13:37] LABS: ALBUMIN 2.9 g/dl (3.4-5.0); MAGNESIUM 2.6 mg/dL (1.8-2.4)
[2021-08-16 13:41] LABS: TOT PROT 5.8 g/dl (6.4-8.2)
[2021-08-16 13:42] LABS: BILIRUBIN,TOTAL 0.2 mg/dL (0.2-1)
[2021-08-16 14:26] LABS: ANISOCYTOSIS 3+; MACROCYTOSIS 1+; PLATELET ESTIMATE NORMAL
[2021-08-16] MEDS ORDERED: PT OWN MED DRAWER 7, Y5N ONE ×2 (17:25→19:44)
[2021-08-16] MEDS: MIRTAZAPINE 30 MG TABLET PO SCH (17:31)
[2021-08-16] MEDS: DOCUSATE SODIUM 100 MG CAPSULE (FP) PO SCH (17:31)
[2021-08-16] MEDS: QUEtiapine FUMARATE 200 MG TABLET PO SCH (18:34)
[2021-08-17] MEDS: DEXAMETHASONE 4 MG TABLET (FP) PO SCH (08:18)
[2021-08-17] MEDS: APIXABAN 2.5 MG TABLET PO SCH ×2 (08:18→17:25)
[2021-08-17] MEDS: oxyCODONE HCL 5 MG TABLET PO SCH ×3 (08:18→22:23)
[2021-08-17] MEDS: POLYETHYLENE GLYCOL (HEALTHYLAX) 3350 17 GM PACKET PO SCH (08:19)
[2021-08-17] MEDS: ACETAMINOPHEN 325 MG TABLET (FP) PO PRN (08:20)
[2021-08-17] MEDS: LURASIDONE HCL 20 MG TABLET PO SCH (08:21)
[2021-08-17] MEDS: DIVALPROEX SODIUM 250 MG TABLET E.C. PO SCH (08:22)
[2021-08-17] MEDS: PATIENT'S OWN MEDICATION (NON-FORMULARY) (Sofosbuvir/Velpatasvir [Epclusa 400 Mg-100 Mg Ta PO SCH (08:24)
[2021-08-17] MEDS: ASCORBIC ACID 500 MG TABLET (FP) PO SCH ×2 (08:25→17:26)
[2021-08-17] MEDS: RUXOLITINIB PHOSPHATE PO SCH ×3 (09:26→17:25)
[2021-08-17] MEDS: QUEtiapine FUMARATE 200 MG TABLET PO SCH (17:25)
[2021-08-17] MEDS: MIRTAZAPINE 30 MG TABLET PO SCH (17:25)
[2021-08-17] MEDS: DOCUSATE SODIUM 100 MG CAPSULE (FP) PO SCH (17:26)
[2021-08-17] MEDS ORDERED: PT OWN MED DRAWER 7, Y5N ONE ×2 (18:01→19:07)
[2021-08-18] MEDS: ACETAMINOPHEN 325 MG TABLET (FP) PO PRN ×4 (08:08→21:05)
[2021-08-18] MEDS: ASCORBIC ACID 500 MG TABLET (FP) PO SCH ×2 (08:08→18:15)
[2021-08-18] MEDS: APIXABAN 2.5 MG TABLET PO SCH ×2 (08:08→17:31)
[2021-08-18] MEDS: DEXAMETHASONE 4 MG TABLET (FP) PO SCH (08:09)
[2021-08-18] MEDS: POLYETHYLENE GLYCOL (HEALTHYLAX) 3350 17 GM PACKET PO SCH (08:09)
[2021-08-18] MEDS: PATIENT'S OWN MEDICATION (NON-FORMULARY) (Sofosbuvir/Velpatasvir [Epclusa 400 Mg-100 Mg Ta PO SCH (08:10)
[2021-08-18] MEDS: oxyCODONE HCL 5 MG TABLET PO SCH ×4 (08:14→20:54)
[2021-08-18] MEDS: RUXOLITINIB PHOSPHATE PO SCH ×2 (08:26→17:34)
[2021-08-18] MEDS: LURASIDONE HCL 20 MG TABLET PO SCH (09:39)
[2021-08-18] MEDS: DIVALPROEX SODIUM 250 MG TABLET E.C. PO SCH ×2 (09:39→21:05)
[2021-08-18] MEDS ORDERED: oxyCODONE HCL 5 MG TABLET PO ONE (13:00)
[2021-08-18] MEDS: MIRTAZAPINE 30 MG TABLET PO SCH (17:31)
[2021-08-18] MEDS: DOCUSATE SODIUM 100 MG CAPSULE (FP) PO SCH (17:31)
[2021-08-18] MEDS: QUEtiapine FUMARATE 200 MG TABLET PO SCH (18:15)
[2021-08-19] MEDS: DIVALPROEX SODIUM 250 MG TABLET E.C. PO SCH ×2 (05:54→15:00)
[2021-08-19] MEDS ORDERED: PT OWN MED DRAWER 7, Y5N ONE ×5 (07:01→19:37)
[2021-08-19] MEDS: DEXAMETHASONE 4 MG TABLET (FP) PO SCH (08:13)
[2021-08-19] MEDS: oxyCODONE HCL 5 MG TABLET PO SCH ×4 (08:14→20:05)
[2021-08-19] MEDS: ACETAMINOPHEN 325 MG TABLET (FP) PO PRN ×3 (08:17→17:54)
[2021-08-19] MEDS: APIXABAN 2.5 MG TABLET PO SCH ×2 (08:18→17:54)
[2021-08-19] MEDS: ASCORBIC ACID 500 MG TABLET (FP) PO SCH (08:18)
[2021-08-19] MEDS: PATIENT'S OWN MEDICATION (NON-FORMULARY) (Sofosbuvir/Velpatasvir [Epclusa 400 Mg-100 Mg Ta PO SCH ×2 (08:19→12:48)
[2021-08-19] MEDS: POLYETHYLENE GLYCOL (HEALTHYLAX) 3350 17 GM PACKET PO SCH (08:25)
[2021-08-19] MEDS: LURASIDONE HCL 20 MG TABLET PO SCH (08:32)
[2021-08-19] MEDS: RUXOLITINIB PHOSPHATE PO SCH ×2 (08:38→17:56)
[2021-08-19] MEDS: DOCUSATE SODIUM 100 MG CAPSULE (FP) PO SCH (17:54)
[2021-08-19] MEDS: MIRTAZAPINE 30 MG TABLET PO SCH (17:54)
[2021-08-19] MEDS: QUEtiapine FUMARATE 200 MG TABLET PO SCH (18:41)
[2021-08-20] MEDS: DIVALPROEX SODIUM 250 MG TABLET E.C. PO SCH ×4 (00:18→21:44)
[2021-08-20] MEDS ORDERED: PT OWN MED DRAWER 7, Y5N ONE ×3 (05:31→21:40)
[2021-08-20] MEDS: oxyCODONE HCL 5 MG TABLET PO SCH ×4 (08:55→20:26)
[2021-08-20] MEDS: POLYETHYLENE GLYCOL (HEALTHYLAX) 3350 17 GM PACKET PO SCH (08:59)
[2021-08-20] MEDS: APIXABAN 2.5 MG TABLET PO SCH ×2 (09:00→18:00)
[2021-08-20] MEDS: ASCORBIC ACID 500 MG TABLET (FP) PO SCH ×3 (09:00→21:37)
[2021-08-20] MEDS: LURASIDONE HCL 20 MG TABLET PO SCH (09:01)
[2021-08-20] MEDS: PATIENT'S OWN MEDICATION (NON-FORMULARY) (Sofosbuvir/Velpatasvir [Epclusa 400 Mg-100 Mg Ta PO SCH (09:08)
[2021-08-20] MEDS: RUXOLITINIB PHOSPHATE PO SCH ×2 (10:14→18:05)
[2021-08-20] MEDS: NICOTINE 21 MG/24 HOURS TOPICAL PATCH TD SCH (16:46)
[2021-08-20] MEDS: QUEtiapine FUMARATE 200 MG TABLET PO SCH (17:58)
[2021-08-20] MEDS: DOCUSATE SODIUM 100 MG CAPSULE (FP) PO SCH (17:59)
[2021-08-20] MEDS: MIRTAZAPINE 30 MG TABLET PO SCH (18:00)
[2021-08-20] MEDS: ACETAMINOPHEN 325 MG TABLET (FP) PO PRN (20:27)
[2021-08-21] MEDS ORDERED: PT OWN MED DRAWER 7, Y5N ONE ×3 (05:03→13:59)
[2021-08-21] MEDS: DIVALPROEX SODIUM 250 MG TABLET E.C. PO SCH ×3 (05:47→21:34)
[2021-08-21] MEDS: POLYETHYLENE GLYCOL (HEALTHYLAX) 3350 17 GM PACKET PO SCH (07:55)
[2021-08-21] MEDS: oxyCODONE HCL 5 MG TABLET PO SCH ×4 (07:56→20:08)
[2021-08-21] MEDS: LURASIDONE HCL 20 MG TABLET PO SCH (07:57)
[2021-08-21] MEDS: ASCORBIC ACID 500 MG TABLET (FP) PO SCH ×2 (07:57→17:37)
[2021-08-21] MEDS: ACETAMINOPHEN 325 MG TABLET (FP) PO PRN ×2 (07:58→21:34)
[2021-08-21] MEDS: PATIENT'S OWN MEDICATION (NON-FORMULARY) (Sofosbuvir/Velpatasvir [Epclusa 400 Mg-100 Mg Ta PO SCH (07:58)
[2021-08-21] MEDS: APIXABAN 2.5 MG TABLET PO SCH ×2 (07:58→17:37)
[2021-08-21] MEDS: RUXOLITINIB PHOSPHATE PO SCH ×2 (07:59→17:38)
[2021-08-21] MEDS: NICOTINE 21 MG/24 HOURS TOPICAL PATCH TD SCH (10:10)
[2021-08-21 12:09] LABS: HEMATOCRIT 25.6 % (32.4-45.2); HEMOGLOBIN 8.5 GM/dL (10.7-15.3); MCH 32.1 pg (25.7-33.7); MCHC 33.2 g/dl (32.0-36.0); MEAN CELL VOLUME 96.5 fl (80-96); MEAN PLT VOLUME 7.7 fl (7.5-11.1); PLATELET COUNT 246 10^3/uL (134-434); RBC 2.65 M/mm3 (3.60-5.2); RDW 23.4 % (11.6-15.6); WHITE BLOOD COUNT 8.2 K/mm3 (4.0-10.0)
[2021-08-21 12:38] LABS: ALBUMIN 2.8 g/dl (3.4-5.0); BLOOD UREA NITROGEN 17.7 mg/dL (7-18); CALCIUM 7.4 mg/dL (8.5-10.1); MAGNESIUM 2.6 mg/dL (1.8-2.4)
[2021-08-21 12:41] LABS: CREATININE 1.1 mg/dL (0.55-1.3)
[2021-08-21 12:43] LABS: BILIRUBIN,TOTAL 0.6 mg/dL (0.2-1); TOT PROT 5.5 g/dl (6.4-8.2)
[2021-08-21 14:24] LABS: ANISOCYTOSIS 2+; MACROCYTOSIS 0; PLATELET ESTIMATE NORMAL
[2021-08-21] MEDS ORDERED: ALBUTEROL SO4 HFA INHALER IH PRN (14:46)
[2021-08-21] MEDS ORDERED: predniSONE 20 MG TABLET (UD) PO ONE (14:49)
[2021-08-21] MEDS ORDERED: FAMOTIDINE 20 MG TABLET PO ONE (14:49)
[2021-08-21] MEDS: DOCUSATE SODIUM 100 MG CAPSULE (FP) PO SCH (17:37)
[2021-08-21] MEDS: QUEtiapine FUMARATE 200 MG TABLET PO SCH (17:37)
[2021-08-21] MEDS: MIRTAZAPINE 30 MG TABLET PO SCH (17:37)
[2021-08-22] MEDS: DIVALPROEX SODIUM 250 MG TABLET E.C. PO SCH ×4 (05:47→23:19)
[2021-08-22] MEDS ORDERED: PT OWN MED DRAWER 7, Y5N ONE ×4 (07:55→19:52)
[2021-08-22] MEDS: POLYETHYLENE GLYCOL (HEALTHYLAX) 3350 17 GM PACKET PO SCH (08:04)
[2021-08-22] MEDS: ASCORBIC ACID 500 MG TABLET (FP) PO SCH ×2 (08:07→17:02)
[2021-08-22] MEDS: oxyCODONE HCL 5 MG TABLET PO SCH ×4 (08:07→19:55)
[2021-08-22] MEDS: APIXABAN 2.5 MG TABLET PO SCH ×2 (08:08→17:00)
[2021-08-22] MEDS: ACETAMINOPHEN 325 MG TABLET (FP) PO PRN ×3 (08:08→16:59)
[2021-08-22] MEDS: PATIENT'S OWN MEDICATION (NON-FORMULARY) (Sofosbuvir/Velpatasvir [Epclusa 400 Mg-100 Mg Ta PO SCH (08:09)
[2021-08-22] MEDS: LURASIDONE HCL 20 MG TABLET PO SCH (08:13)
[2021-08-22] MEDS: RUXOLITINIB PHOSPHATE PO SCH ×2 (08:33→17:02)
[2021-08-22] MEDS: predniSONE 20 MG TABLET (UD) PO SCH (12:00)
[2021-08-22] MEDS: NICOTINE 21 MG/24 HOURS TOPICAL PATCH TD SCH (12:01)
[2021-08-22] MEDS: MIRTAZAPINE 30 MG TABLET PO SCH (17:00)
[2021-08-22] MEDS: DOCUSATE SODIUM 100 MG CAPSULE (FP) PO SCH (17:01)
[2021-08-22] MEDS: QUEtiapine FUMARATE 200 MG TABLET PO SCH (17:03)
[2021-08-23] MEDS: DIVALPROEX SODIUM 250 MG TABLET E.C. PO SCH ×3 (06:01→21:39)
[2021-08-23] MEDS: NICOTINE 21 MG/24 HOURS TOPICAL PATCH TD SCH ×2 (08:38→12:14)
[2021-08-23] MEDS: APIXABAN 2.5 MG TABLET PO SCH ×3 (08:38→17:58)
[2021-08-23] MEDS: POLYETHYLENE GLYCOL (HEALTHYLAX) 3350 17 GM PACKET PO SCH (08:39)
[2021-08-23] MEDS: LURASIDONE HCL 20 MG TABLET PO SCH (08:39)
[2021-08-23] MEDS: oxyCODONE HCL 5 MG TABLET PO SCH ×4 (08:40→19:52)
[2021-08-23] MEDS: ASCORBIC ACID 500 MG TABLET (FP) PO SCH ×3 (08:41→17:58)
[2021-08-23] MEDS: PATIENT'S OWN MEDICATION (NON-FORMULARY) (Sofosbuvir/Velpatasvir [Epclusa 400 Mg-100 Mg Ta PO SCH (08:41)
[2021-08-23] MEDS: RUXOLITINIB PHOSPHATE PO SCH ×2 (08:41→17:58)
[2021-08-23] MEDS: ACETAMINOPHEN 325 MG TABLET (FP) PO PRN ×3 (08:41→16:16)
[2021-08-23 11:08] LABS: SARS-CoV-2 NAA Detected (Not Detected)
[2021-08-23] MEDS: predniSONE 20 MG TABLET (UD) PO SCH (12:13)
[2021-08-23] MEDS: DOCUSATE SODIUM 100 MG CAPSULE (FP) PO SCH ×2 (16:17→17:58)
[2021-08-23] MEDS: MIRTAZAPINE 30 MG TABLET PO SCH ×2 (16:17→17:58)
[2021-08-23] MEDS: QUEtiapine FUMARATE 200 MG TABLET PO SCH (17:25)
[2021-08-24] MEDS: DIVALPROEX SODIUM 250 MG TABLET E.C. PO SCH ×2 (05:30→18:10)
[2021-08-24 07:17] VITALS: BP 131/66; PULSE 94; TEMP 98.9
[2021-08-24] MEDS: oxyCODONE HCL 5 MG TABLET PO SCH ×3 (08:04→18:10)
[2021-08-24] MEDS: APIXABAN 2.5 MG TABLET PO SCH (08:04)
[2021-08-24] MEDS: LURASIDONE HCL 20 MG TABLET PO SCH (08:06)
[2021-08-24] MEDS: PATIENT'S OWN MEDICATION (NON-FORMULARY) (Sofosbuvir/Velpatasvir [Epclusa 400 Mg-100 Mg Ta PO SCH (08:06)
[2021-08-24] MEDS: RUXOLITINIB PHOSPHATE PO SCH (08:06)
[2021-08-24] MEDS: POLYETHYLENE GLYCOL (HEALTHYLAX) 3350 17 GM PACKET PO SCH (08:08)
[2021-08-24] MEDS: ASCORBIC ACID 500 MG TABLET (FP) PO SCH (10:07)
[2021-08-24] MEDS: predniSONE 20 MG TABLET (UD) PO SCH (10:07)
[2021-08-24] MEDS: NICOTINE 21 MG/24 HOURS TOPICAL PATCH TD SCH (10:14)
== END 2021-08-24 16:35 | disposition home or self-care (01) | DRG 177 ==
LOC: JER 14:18 → JERBED 22:12 → J5S 08-11 02:17
PROVIDERS: ADMIT Hospitalist; ATTEND Nurse Practitioner Acute Care
PROC: 30233N1 Transfusion of Nonautologous Red Blood Cells into Peripheral Vein, Percutaneous Approach (ICD-10-PCS; 2021-08-10)
PROC: XW033E5 Introduction of Remdesivir Anti-infective into Peripheral Vein, Percutaneous Approach, New Technology Group 5 (ICD-10-PCS; principal; 2021-08-12)
DX: U07.1 COVID-19 (principal); J96.01 Acute respiratory failure with hypoxia; J12.82 Pneumonia due to coronavirus disease 2019; D75.81 Myelofibrosis; J44.1 Chronic obstructive pulmonary disease with (acute) exacerbation; B18.2 Chronic viral hepatitis C; F31.9 Bipolar disorder, unspecified; F20.9 Schizophrenia, unspecified; F17.210 Nicotine dependence, cigarettes, uncomplicated; D64.9 Anemia, unspecified; K21.9 Gastro-esophageal reflux disease without esophagitis; Z88.0 Allergy status to penicillin
CPT/HCPCS: 36415; 36430; 71045-TC-FY; 71046-TC-FY; 71250-TC; 74176-TC; 80053; 80076; 81003; 82728; 83615; 83735; 85025; 85027; 85379; 85610; 86140; 86922; 87040; 87086; 87186; 87522; 87804; 93005; 93010; 94010; 94761; 97116-GP; 97161-GP; 99285-25; C9399; C9803-CS; G0463-25; J0475; J1100; P9058; U0003; U0005

== ENCOUNTER 2021-09-01 17:36 | Inpatient (IN) | payer OTHER ==
[2021-09-01] MEDS ORDERED: IBUPROFEN 600 MG TABLET (FP) PO ONE (17:55)
[2021-09-01] MEDS ORDERED: ACETAMINOPHEN 325 MG TABLET (FP) PO ONE (18:31)
[2021-09-01] MEDS ORDERED: ACETAMINOPHEN 325 MG TABLET (FP) ONE (20:09)
[2021-09-01] MEDS ORDERED: ALBUTEROL SO4 2.5/IPRATROPIUM 0.5 INH SOL 3 ML VIAL.NEB. NEB ONE (21:30)
[2021-09-01] MEDS: ALBUTEROL SO4 2.5/IPRATROPIUM 0.5 INH SOL 3 ML VIAL.NEB. NEB SCH (21:34)
[2021-09-01 22:06] LABS: HEMATOCRIT 23.3 % (32.4-45.2); HEMOGLOBIN 7.7 GM/dL (10.7-15.3); MCH 31.6 pg (25.7-33.7); MCHC 33.1 g/dl (32.0-36.0); MEAN CELL VOLUME 95.5 fl (80-96); MEAN PLT VOLUME 7.2 fl (7.5-11.1); PLATELET COUNT 183 10^3/uL (134-434); RBC 2.44 M/mm3 (3.60-5.2); RDW 23.6 % (11.6-15.6); WHITE BLOOD COUNT 10.2 K/mm3 (4.0-10.0)
[2021-09-01 22:07] LABS: ADD RBC MORPHOLOGY YES
[2021-09-01 22:15] LABS: INR 1.43 (0.83-1.09); PROTHROMBIN TIME (PATIENT) 16.5 SEC (9.7-13.0)
[2021-09-01 22:17] LABS: ACTIVATED PTT 35.4 SECONDS (25.2-36.5)
[2021-09-01 22:33] LABS: CHLORIDE 105 mmol/L (98-107); SODIUM 141 mmol/L (136-145)
[2021-09-01 22:35] LABS: ALBUMIN 2.4 g/dl (3.4-5.0); ANION GAP 9 MMOL/L (8-16); BLOOD UREA NITROGEN 18.3 mg/dL (7-18); CALCIUM 7.4 mg/dL (8.5-10.1); CO2 28 mmol/L (21-32); GLUCOSE,RANDOM 83 mg/dL (74-106)
[2021-09-01 22:39] LABS: CREATININE 1.1 mg/dL (0.55-1.3); SGOT/AST 20 U/L (15-37); SGPT/ALT 17 U/L (13-61)
[2021-09-01 22:40] LABS: BILIRUBIN,TOTAL 0.5 mg/dL (0.2-1)
[2021-09-01 22:41] LABS: ALK PHOS 52 U/L (45-117)
[2021-09-01] MEDS ORDERED: VANCOMYCIN 1 GM in D5W (PRE-DOCKED) 1,000 MG/250 ML IVPB ONE (22:50)
[2021-09-01] MEDS ORDERED: CEFEPIME HCL/D5W 1 GM/50 ML BAG IVPB ONE (22:50)
[2021-09-01] MEDS ORDERED: VANCOMYCIN 1 GRAM (PRE-DOCKED) 1,000 MG/250 ML BAG IVPB ONE (22:55)
[2021-09-01] MEDS ORDERED: CEFEPIME 1 GM/100 ML BAG IVPB ONE (22:56)
[2021-09-01 22:57] LABS: ANISOCYTOSIS 3+; MACROCYTOSIS 1+; OVALOCYTE 1+
[2021-09-02] MEDS ORDERED: ALBUTEROL SO4 2.5/IPRATROPIUM 0.5 INH SOL 3 ML VIAL.NEB. NEB PRN (04:51)
[2021-09-02] MEDS ORDERED: RUXOLITINIB PHOSPHATE PO SCH (10:00)
[2021-09-02] MEDS ORDERED: CEFEPIME HCL/D5W 2 GM/50 ML BAG IVPB SCH (10:00)
[2021-09-02] MEDS ORDERED: PATIENT'S OWN MEDICATION (NON-FORMULARY) (Sofosbuvir/Velpatasvir [Epclusa 400 Mg-100 Mg Ta PO SCH (10:00)
[2021-09-02] MEDS: PANTOPRAZOLE 20 MG TABLET PO SCH (10:27)
[2021-09-02] MEDS: ASCORBIC ACID 500 MG TABLET (FP) PO SCH ×2 (10:27→17:53)
[2021-09-02] MEDS: APIXABAN 2.5 MG TABLET PO SCH ×2 (10:27→21:12)
[2021-09-02] MEDS: CEFEPIME 2 GM in DEXTROSE 5%-WATER 100 ML IVPB SCH ×2 (10:28→21:14)
[2021-09-02] MEDS: POLYETHYLENE GLYCOL (HEALTHYLAX) 3350 17 GM PACKET PO SCH (10:30)
[2021-09-02] MEDS ORDERED: VANCOMYCIN 1 GM in D5W (PRE-DOCKED) 1,000 MG/250 ML IVPB SCH (12:00)
[2021-09-02] MEDS: DIVALPROEX SODIUM 250 MG TABLET E.C. PO SCH (12:29)
[2021-09-02] MEDS ORDERED: oxyCODONE HCL 5 MG TABLET PO ONE (14:11)
[2021-09-02 16:30] VITALS: BMI 28.4
[2021-09-02] MEDS: oxyCODONE HCL 5 MG TABLET PO SCH ×2 (17:53→21:11)
[2021-09-02] MEDS: CEFEPIME 1 GM in DEXTROSE 5%-WATER 1 GM/50 ML BAG IVPB SCH (21:18)
[2021-09-02] MEDS: QUEtiapine FUMARATE 200 MG TABLET PO SCH (21:59)
[2021-09-03] MEDS: oxyCODONE HCL 5 MG TABLET PO SCH ×4 (08:00→19:49)
[2021-09-03] MEDS ORDERED: CEFEPIME 2 GM in DEXTROSE 5%-WATER 100 ML IVPB SCH (10:00)
[2021-09-03] MEDS: POLYETHYLENE GLYCOL (HEALTHYLAX) 3350 17 GM PACKET PO SCH (10:27)
[2021-09-03] MEDS: PANTOPRAZOLE 20 MG TABLET PO SCH (10:27)
[2021-09-03] MEDS: APIXABAN 2.5 MG TABLET PO SCH ×2 (10:27→21:06)
[2021-09-03] MEDS: ASCORBIC ACID 500 MG TABLET (FP) PO SCH ×2 (10:30→17:28)
[2021-09-03] MEDS ORDERED: VANCOMYCIN 1 GM in D5W (PRE-DOCKED) 1,000 MG/250 ML IVPB SCH (12:00)
[2021-09-03] MEDS: CEFEPIME 1 GM in DEXTROSE 5%-WATER 1 GM/50 ML BAG IVPB SCH (13:00)
[2021-09-03] MEDS: DIVALPROEX SODIUM 250 MG TABLET E.C. PO SCH (13:00)
[2021-09-03] MEDS ORDERED: CEFEPIME HCL 1 GM VIAL (RESTRICTED TO ID) ONE (21:04)
[2021-09-03] MEDS ORDERED: DEXTROSE 5%-WATER 100 ML IVPB ONE (21:04)
[2021-09-03] MEDS: QUEtiapine FUMARATE 200 MG TABLET PO SCH (21:06)
[2021-09-03] MEDS: CEFEPIME 1 GM in DEXTROSE 5%-WATER 1 GM/100 ML BAG IVPB SCH (21:07)
[2021-09-03] MEDS: MIRTAZAPINE 30 MG TABLET PO SCH (22:10)
[2021-09-04] MEDS ORDERED: MELATONIN 5 MG TABLETS PO PRN (06:26)
[2021-09-04] MEDS: DIVALPROEX SODIUM 250 MG TABLET E.C. PO SCH ×3 (07:07→21:05)
[2021-09-04] MEDS: ASCORBIC ACID 500 MG TABLET (FP) PO SCH ×2 (07:07→17:01)
[2021-09-04] MEDS: oxyCODONE HCL 5 MG TABLET PO PRN ×3 (07:12→20:12)
[2021-09-04 08:48] LABS: HEMATOCRIT 22.1 % (32.4-45.2); HEMOGLOBIN 7.1 GM/dL (10.7-15.3); MCH 31.2 pg (25.7-33.7); MEAN CELL VOLUME 97.7 fl (80-96); MEAN PLT VOLUME 7.1 fl (7.5-11.1); PLATELET COUNT 172 10^3/uL (134-434); RBC 2.27 M/mm3 (3.60-5.2); RDW 22.7 % (11.6-15.6); WHITE BLOOD COUNT 10.6 K/mm3 (4.0-10.0)
[2021-09-04 09:00] LABS: CALCIUM 8.2 mg/dL (8.5-10.1)
[2021-09-04 09:01] LABS: ALBUMIN 2.4 g/dl (3.4-5.0); MAGNESIUM 2.5 mg/dL (1.8-2.4)
[2021-09-04 09:04] LABS: CREATININE 0.9 mg/dL (0.55-1.3)
[2021-09-04 09:06] LABS: BILIRUBIN,TOTAL 0.2 mg/dL (0.2-1); TOT PROT 5.7 g/dl (6.4-8.2)
[2021-09-04] MEDS ORDERED: CEFEPIME HCL 1 GM VIAL (RESTRICTED TO ID) ONE ×3 (10:00→20:08)
[2021-09-04] MEDS ORDERED: DEXTROSE 5%-WATER 100 ML IVPB ONE ×3 (10:01→20:09)
[2021-09-04 10:47] LABS: ANISOCYTOSIS 2+; MACROCYTOSIS 0; PLATELET ESTIMATE NORMAL
[2021-09-04] MEDS: POLYETHYLENE GLYCOL (HEALTHYLAX) 3350 17 GM PACKET PO SCH (11:18)
[2021-09-04] MEDS: PANTOPRAZOLE 20 MG TABLET PO SCH (11:19)
[2021-09-04] MEDS: DOCUSATE SODIUM 100 MG CAPSULE (FP) PO SCH (11:19)
[2021-09-04] MEDS: APIXABAN 2.5 MG TABLET PO SCH ×2 (11:19→21:05)
[2021-09-04] MEDS: CEFEPIME 1 GM in DEXTROSE 5%-WATER 1 GM/100 ML BAG IVPB SCH ×2 (11:26→21:07)
[2021-09-04] MEDS: NICOTINE 21 MG/24 HOURS TOPICAL PATCH TD SCH ×2 (13:43→13:50)
[2021-09-04] MEDS: QUEtiapine FUMARATE 200 MG TABLET PO SCH (21:05)
[2021-09-04] MEDS: MIRTAZAPINE 30 MG TABLET PO SCH (21:06)
[2021-09-04] MEDS ORDERED: MIRTAZAPINE 30 MG TABLET PO SCH (22:00)
[2021-09-05] MEDS: DIVALPROEX SODIUM 250 MG TABLET E.C. PO SCH ×3 (05:53→21:16)
[2021-09-05] MEDS ORDERED: CEFEPIME HCL 1 GM VIAL (RESTRICTED TO ID) ONE ×3 (10:52→21:10)
[2021-09-05] MEDS ORDERED: DEXTROSE 5%-WATER 100 ML IVPB ONE ×3 (10:53→21:10)
[2021-09-05] MEDS: APIXABAN 2.5 MG TABLET PO SCH ×2 (10:57→21:16)
[2021-09-05] MEDS: DOCUSATE SODIUM 100 MG CAPSULE (FP) PO SCH (10:57)
[2021-09-05] MEDS: PANTOPRAZOLE 20 MG TABLET PO SCH (10:58)
[2021-09-05] MEDS: POLYETHYLENE GLYCOL (HEALTHYLAX) 3350 17 GM PACKET PO SCH ×2 (10:58→11:12)
[2021-09-05] MEDS: ASCORBIC ACID 500 MG TABLET (FP) PO SCH ×2 (10:59→17:59)
[2021-09-05] MEDS: CEFEPIME 1 GM in DEXTROSE 5%-WATER 1 GM/100 ML BAG IVPB SCH ×2 (10:59→21:16)
[2021-09-05] MEDS: oxyCODONE HCL 5 MG TABLET PO PRN ×3 (11:00→22:36)
[2021-09-05] MEDS: NICOTINE 21 MG/24 HOURS TOPICAL PATCH TD SCH (12:23)
[2021-09-05] MEDS: MIRTAZAPINE 30 MG TABLET PO SCH (21:15)
[2021-09-05] MEDS: QUEtiapine FUMARATE 200 MG TABLET PO SCH (21:15)
[2021-09-06] MEDS: DIVALPROEX SODIUM 250 MG TABLET E.C. PO SCH ×2 (05:51→13:35)
[2021-09-06] MEDS: ASCORBIC ACID 500 MG TABLET (FP) PO SCH (08:08)
[2021-09-06] MEDS ORDERED: CEFUROXIME AXETIL 500 MG TABLET PO SCH (10:00)
[2021-09-06] MEDS: NICOTINE 21 MG/24 HOURS TOPICAL PATCH TD SCH ×2 (11:02→11:05)
[2021-09-06] MEDS: PANTOPRAZOLE 20 MG TABLET PO SCH (11:02)
[2021-09-06] MEDS: DOCUSATE SODIUM 100 MG CAPSULE (FP) PO SCH (11:02)
[2021-09-06] MEDS: APIXABAN 2.5 MG TABLET PO SCH (11:02)
[2021-09-06] MEDS: POLYETHYLENE GLYCOL (HEALTHYLAX) 3350 17 GM PACKET PO SCH ×2 (11:02→11:06)
[2021-09-06] MEDS: oxyCODONE HCL 5 MG TABLET PO PRN (11:16)
[2021-09-06 14:01] VITALS: BP 114/58
[2021-09-06 14:31] VITALS: PULSE 94; TEMP 98.7
[2021-09-09] MEDS ORDERED: ERGOCALCIFEROL (VIT D2) 50,000 UNIT (1.25 MG) CAPSULE PO SCH (10:00)
== END 2021-09-06 15:46 | disposition home or self-care (01) | DRG 194 ==
LOC: JER 17:36 → JERBED 22:57 → OBSVTOIN 09-02 04:46 → J5S 09-02 06:47 → J8W 09-03 05:56
PROVIDERS: ADMIT Hospitalist; ATTEND Nurse Practitioner Acute Care
DX: J18.9 Pneumonia, unspecified organism (principal); J44.1 Chronic obstructive pulmonary disease with (acute) exacerbation; J44.0 Chronic obstructive pulmonary disease with (acute) lower respiratory infection; J98.11 Atelectasis; B18.2 Chronic viral hepatitis C; F20.9 Schizophrenia, unspecified; F31.9 Bipolar disorder, unspecified; D64.9 Anemia, unspecified; R09.02 Hypoxemia; Z99.81 Dependence on supplemental oxygen; F17.210 Nicotine dependence, cigarettes, uncomplicated; D72.829 Elevated white blood cell count, unspecified; U09.9 Post COVID-19 condition, unspecified; K21.9 Gastro-esophageal reflux disease without esophagitis
CPT/HCPCS: 36415; 71045-TC-FY; 80053; 82550; 83605; 83735; 84484; 85025; 85610; 85730; 86850; 86900; 86901; 87040; 87804; 93005; 93010; 94761; 99285-25; C9803; G0378; U0003; U0005

== ENCOUNTER 2021-12-29 06:07 | Inpatient (IN) | payer OTHER ==
[2021-12-29] MEDS ORDERED: KETOROLAC TROMETHAMINE 15 MG/ML VIAL IVPUSH ONE ×2 (07:38→12:08)
[2021-12-29] MEDS ORDERED: ACETAMINOPHEN 1000 MG/100 ML BAG IVPB ONE (07:39)
[2021-12-29] MEDS ORDERED: LIDOCAINE 5% TOPICAL PATCH TP ONE (07:39)
[2021-12-29] MEDS ORDERED: ACETAMINOPHEN INJECTION 100 ML IVPB ONE (07:54)
[2021-12-29] MEDS ORDERED: FAMOTIDINE 20 MG/50 ML IVPB 20 MG/50 ML MG IVPB ONE (12:07)
[2021-12-29] MEDS ORDERED: KETOROLAC TROMETHAMINE 30 MG/1 ML VIAL IM ONE (12:07)
[2021-12-29 12:30] LABS: HEMATOCRIT 21.9 % (32.4-45.2); HEMOGLOBIN 7.1 GM/dL (10.7-15.3); MCH 32.8 pg (25.7-33.7); MCHC 32.4 g/dl (32.0-36.0); MEAN CELL VOLUME 101.5 fl (80-96); MEAN PLT VOLUME 7.8 fl (7.5-11.1); PLATELET COUNT 444 10^3/uL (134-434); RBC 2.16 M/mm3 (3.60-5.2); RDW 19.1 % (11.6-15.6); WHITE BLOOD COUNT 8.2 K/mm3 (4.0-10.0)
[2021-12-29 12:52] LABS: ALBUMIN 2.9 g/dl (3.4-5.0); BLOOD UREA NITROGEN 16.5 mg/dL (7-18); CALCIUM 8.5 mg/dL (8.5-10.1)
[2021-12-29 12:55] LABS: CREATININE 0.7 mg/dL (0.55-1.3)
[2021-12-29 12:57] LABS: BILIRUBIN,TOTAL 0.4 mg/dL (0.2-1)
[2021-12-29 13:05] LABS: ANISOCYTOSIS 1+; MACROCYTOSIS 1+
[2021-12-29] MEDS ORDERED: FAMOTIDINE 10 MG/ML VIAL IVPB ONE (13:44)
[2021-12-29] MEDS ORDERED: KETOROLAC TROMETHAMINE 15 MG/ML VIAL ONE (13:44)
[2021-12-29] MEDS ORDERED: SENNOSIDES 8.6MG TABLET (FP) PO PRN (19:36)
[2021-12-29] MEDS ORDERED: oxyCODONE HCL 5 MG TABLET ONE (20:07)
[2021-12-29] MEDS: oxyCODONE HCL 5 MG TABLET PO PRN (20:10)
[2021-12-29] MEDS ORDERED: BACLOFEN 10 MG TABLET (FP) ONE (20:20)
[2021-12-29] MEDS ORDERED: APIXABAN 5 MG TABLET ONE (20:20)
[2021-12-29] MEDS ORDERED: MIRTAZAPINE 15 MG TABLET (FP) ONE (20:21)
[2021-12-29] MEDS ORDERED: DIVALPROEX SODIUM 125 MG TABLET E.C. ONE (20:21)
[2021-12-29] MEDS ORDERED: MIRTAZAPINE 30 MG TABLET PO SCH ×2 (20:44→22:00)
[2021-12-29] MEDS: BACLOFEN 10 MG TABLET (FP) PO SCH (21:04)
[2021-12-29] MEDS: DIVALPROEX SODIUM 250 MG TABLET E.C. PO SCH (21:04)
[2021-12-29] MEDS: APIXABAN 5 MG TABLET PO SCH (21:04)
[2021-12-29] MEDS ORDERED: BACLOFEN 10 MG TABLET (FP) PO SCH (22:00)
[2021-12-29] MEDS ORDERED: DIVALPROEX SODIUM 250 MG TABLET E.C. PO SCH (22:00)
[2021-12-29] MEDS ORDERED: APIXABAN 5 MG TABLET PO SCH (22:00)
[2021-12-29] MEDS ORDERED: LIDOCAINE PATCH REMOVAL MC ONE (22:00)
[2021-12-29] MEDS: METHYL SALICYLATE/MENTHOL OINT 30 GM TUBE TP SCH (22:19)
[2021-12-29] MEDS: LIDOCAINE PATCH REMOVAL MC SCH (22:20)
[2021-12-29] MEDS: POLYETHYLENE GLYCOL (HEALTHYLAX) 3350 17 GM PACKET PO SCH (22:20)
[2021-12-29] MEDS: OMEGA-3 ACID ETHYL ESTERS (FATTY-ACIDS) 1 GM CAPSULE (FP) PO SCH (22:21)
[2021-12-30] MEDS: DIVALPROEX SODIUM 250 MG TABLET E.C. PO SCH ×3 (07:19→21:26)
[2021-12-30] MEDS: oxyCODONE HCL 5 MG TABLET PO PRN ×2 (08:42→15:46)
[2021-12-30] MEDS ORDERED: ENOXAPARIN NA (PORCINE) 40 MG/0.4 ML DISP.SYRIN SQ SCH (10:00)
[2021-12-30] MEDS: METHYL SALICYLATE/MENTHOL OINT 30 GM TUBE TP SCH ×2 (14:58→21:30)
[2021-12-30] MEDS: POLYETHYLENE GLYCOL (HEALTHYLAX) 3350 17 GM PACKET PO SCH ×2 (14:58→21:26)
[2021-12-30] MEDS: PANTOPRAZOLE 40 MG TABLET PO SCH (14:59)
[2021-12-30] MEDS: LIDOCAINE 5% TOPICAL PATCH TP SCH (14:59)
[2021-12-30] MEDS: APIXABAN 5 MG TABLET PO SCH ×2 (14:59→21:26)
[2021-12-30] MEDS: BACLOFEN 10 MG TABLET (FP) PO SCH ×2 (15:00→21:26)
[2021-12-30] MEDS: OMEGA-3 ACID ETHYL ESTERS (FATTY-ACIDS) 1 GM CAPSULE (FP) PO SCH ×2 (15:44→21:30)
[2021-12-30] MEDS: LURASIDONE HCL 20 MG TABLET PO SCH (15:47)
[2021-12-30 15:58] VITALS: BMI 28.6
[2021-12-30] MEDS ORDERED: MIRTAZAPINE 30 MG TABLET PO SCH (20:00)
[2021-12-30] MEDS: MIRTAZAPINE 15 MG TABLET (FP) PO SCH (21:25)
[2021-12-30] MEDS: LIDOCAINE PATCH REMOVAL MC SCH (21:26)
[2021-12-31] MEDS: DIVALPROEX SODIUM 250 MG TABLET E.C. PO SCH ×3 (05:54→21:20)
[2021-12-31] MEDS: PANTOPRAZOLE 40 MG TABLET PO SCH (09:09)
[2021-12-31] MEDS: BACLOFEN 10 MG TABLET (FP) PO SCH ×2 (09:09→21:20)
[2021-12-31] MEDS: APIXABAN 5 MG TABLET PO SCH ×2 (09:09→21:20)
[2021-12-31] MEDS: oxyCODONE HCL 5 MG TABLET PO PRN ×2 (09:10→17:08)
[2021-12-31] MEDS: OMEGA-3 ACID ETHYL ESTERS (FATTY-ACIDS) 1 GM CAPSULE (FP) PO SCH ×2 (09:16→21:21)
[2021-12-31] MEDS: LIDOCAINE 5% TOPICAL PATCH TP SCH ×2 (09:17→09:29)
[2021-12-31] MEDS: LURASIDONE HCL 20 MG TABLET PO SCH (09:18)
[2021-12-31] MEDS: POLYETHYLENE GLYCOL (HEALTHYLAX) 3350 17 GM PACKET PO SCH ×2 (09:18→21:21)
[2021-12-31] MEDS: RUXOLITINIB PHOSPHATE PO SCH ×2 (11:19→11:20)
[2021-12-31] MEDS: METHYL SALICYLATE/MENTHOL OINT 30 GM TUBE TP SCH ×2 (12:43→21:20)
[2021-12-31 15:36] LABS: HEMATOCRIT 22.4 % (32.4-45.2); HEMOGLOBIN 7.5 GM/dL (10.7-15.3); MCH 33.5 pg (25.7-33.7); MCHC 33.5 g/dl (32.0-36.0); MEAN PLT VOLUME 7.8 fl (7.5-11.1); PLATELET COUNT 442 10^3/uL (134-434); RBC 2.24 M/mm3 (3.60-5.2); RDW 19.7 % (11.6-15.6); WHITE BLOOD COUNT 7.5 K/mm3 (4.0-10.0)
[2021-12-31 16:52] LABS: ANISOCYTOSIS 2+; MACROCYTOSIS 0; OVALOCYTE 2+
[2021-12-31] MEDS: MIRTAZAPINE 15 MG TABLET (FP) PO SCH (20:15)
[2021-12-31] MEDS: LIDOCAINE PATCH REMOVAL MC SCH (21:21)
[2022-01-01] MEDS: DIVALPROEX SODIUM 250 MG TABLET E.C. PO SCH ×3 (05:47→21:05)
[2022-01-01] MEDS: oxyCODONE HCL 5 MG TABLET PO PRN ×4 (05:48→23:45)
[2022-01-01] MEDS: PANTOPRAZOLE 40 MG TABLET PO SCH (10:10)
[2022-01-01] MEDS: APIXABAN 5 MG TABLET PO SCH ×2 (10:10→21:05)
[2022-01-01] MEDS: BACLOFEN 10 MG TABLET (FP) PO SCH ×2 (10:10→21:05)
[2022-01-01] MEDS: OMEGA-3 ACID ETHYL ESTERS (FATTY-ACIDS) 1 GM CAPSULE (FP) PO SCH ×2 (10:10→21:05)
[2022-01-01] MEDS: METHYL SALICYLATE/MENTHOL OINT 30 GM TUBE TP SCH ×2 (10:11→21:06)
[2022-01-01] MEDS: LURASIDONE HCL 20 MG TABLET PO SCH (10:11)
[2022-01-01] MEDS: POLYETHYLENE GLYCOL (HEALTHYLAX) 3350 17 GM PACKET PO SCH ×2 (10:11→21:06)
[2022-01-01] MEDS: LIDOCAINE 5% TOPICAL PATCH TP SCH (10:11)
[2022-01-01] MEDS: ACETAMINOPHEN 325 MG TABLET (FP) PO PRN (14:38)
[2022-01-01] MEDS: MIRTAZAPINE 15 MG TABLET (FP) PO SCH (18:11)
[2022-01-01] MEDS: LIDOCAINE PATCH REMOVAL MC SCH (21:06)
[2022-01-02] MEDS: DIVALPROEX SODIUM 250 MG TABLET E.C. PO SCH ×3 (07:01→21:56)
[2022-01-02] MEDS: oxyCODONE HCL 5 MG TABLET PO PRN ×3 (07:01→17:11)
[2022-01-02 09:06] LABS: HEMATOCRIT 24.9 % (32.4-45.2); HEMOGLOBIN 8.2 GM/dL (10.7-15.3); MCH 33.3 pg (25.7-33.7); MCHC 33.1 g/dl (32.0-36.0); MEAN CELL VOLUME 100.6 fl (80-96); MEAN PLT VOLUME 7.8 fl (7.5-11.1); PLATELET COUNT 468 10^3/uL (134-434); RBC 2.47 M/mm3 (3.60-5.2); RDW 19.4 % (11.6-15.6); WHITE BLOOD COUNT 6.8 K/mm3 (4.0-10.0)
[2022-01-02 10:27] LABS: CALCIUM 8.5 mg/dL (8.5-10.1)
[2022-01-02 10:28] LABS: ALBUMIN 2.9 g/dl (3.4-5.0); BLOOD UREA NITROGEN 20.3 mg/dL (7-18)
[2022-01-02 10:31] LABS: BILIRUBIN,TOTAL 0.3 mg/dL (0.2-1)
[2022-01-02] MEDS: BACLOFEN 10 MG TABLET (FP) PO SCH ×2 (10:50→21:56)
[2022-01-02] MEDS: APIXABAN 5 MG TABLET PO SCH ×2 (10:50→21:56)
[2022-01-02] MEDS: PANTOPRAZOLE 40 MG TABLET PO SCH (10:50)
[2022-01-02 10:51] LABS: ANISOCYTOSIS 2+; MACROCYTOSIS 1+; OVALOCYTE 2+
[2022-01-02] MEDS: OMEGA-3 ACID ETHYL ESTERS (FATTY-ACIDS) 1 GM CAPSULE (FP) PO SCH ×2 (10:53→23:06)
[2022-01-02] MEDS: LIDOCAINE 5% TOPICAL PATCH TP SCH (10:53)
[2022-01-02] MEDS: LURASIDONE HCL 20 MG TABLET PO SCH (10:53)
[2022-01-02] MEDS: ACETAMINOPHEN 325 MG TABLET (FP) PO PRN ×2 (10:53→17:11)
[2022-01-02 10:54] LABS: CREATININE 0.8 mg/dL (0.55-1.3)
[2022-01-02] MEDS: POLYETHYLENE GLYCOL (HEALTHYLAX) 3350 17 GM PACKET PO SCH ×2 (10:54→22:40)
[2022-01-02] MEDS: METHYL SALICYLATE/MENTHOL OINT 30 GM TUBE TP SCH ×2 (10:54→22:40)
[2022-01-02] MEDS: MIRTAZAPINE 15 MG TABLET (FP) PO SCH (17:11)
[2022-01-02] MEDS: LIDOCAINE PATCH REMOVAL MC SCH (22:41)
[2022-01-03] MEDS: DIVALPROEX SODIUM 250 MG TABLET E.C. PO SCH ×4 (06:50→23:20)
[2022-01-03] MEDS: oxyCODONE HCL 5 MG TABLET PO PRN ×2 (09:22→16:11)
[2022-01-03] MEDS: OMEGA-3 ACID ETHYL ESTERS (FATTY-ACIDS) 1 GM CAPSULE (FP) PO SCH ×2 (09:22→23:07)
[2022-01-03] MEDS: APIXABAN 5 MG TABLET PO SCH ×3 (09:22→23:20)
[2022-01-03] MEDS: POLYETHYLENE GLYCOL (HEALTHYLAX) 3350 17 GM PACKET PO SCH ×3 (09:22→23:16)
[2022-01-03] MEDS: BACLOFEN 10 MG TABLET (FP) PO SCH ×3 (09:22→23:17)
[2022-01-03] MEDS: PANTOPRAZOLE 40 MG TABLET PO SCH (09:22)
[2022-01-03] MEDS: LURASIDONE HCL 20 MG TABLET PO SCH (09:22)
[2022-01-03] MEDS: LIDOCAINE 5% TOPICAL PATCH TP SCH (09:23)
[2022-01-03] MEDS: METHYL SALICYLATE/MENTHOL OINT 30 GM TUBE TP SCH ×2 (09:23→23:16)
[2022-01-03] MEDS: MIRTAZAPINE 15 MG TABLET (FP) PO SCH (16:12)
[2022-01-03] MEDS: LIDOCAINE PATCH REMOVAL MC SCH (23:16)
[2022-01-04] MEDS: oxyCODONE HCL 5 MG TABLET PO PRN ×2 (05:57→11:31)
[2022-01-04] MEDS: DIVALPROEX SODIUM 250 MG TABLET E.C. PO SCH ×2 (05:57→14:16)
[2022-01-04] MEDS: LIDOCAINE 5% TOPICAL PATCH TP SCH (10:00)
[2022-01-04] MEDS: LURASIDONE HCL 20 MG TABLET PO SCH (10:01)
[2022-01-04] MEDS: METHYL SALICYLATE/MENTHOL OINT 30 GM TUBE TP SCH (10:01)
[2022-01-04] MEDS: OMEGA-3 ACID ETHYL ESTERS (FATTY-ACIDS) 1 GM CAPSULE (FP) PO SCH ×2 (10:02→10:06)
[2022-01-04] MEDS: BACLOFEN 10 MG TABLET (FP) PO SCH (10:02)
[2022-01-04] MEDS: POLYETHYLENE GLYCOL (HEALTHYLAX) 3350 17 GM PACKET PO SCH (10:03)
[2022-01-04] MEDS: PANTOPRAZOLE 40 MG TABLET PO SCH (10:03)
[2022-01-04] MEDS: APIXABAN 5 MG TABLET PO SCH (10:03)
[2022-01-04 10:09] VITALS: TEMP 97.9
[2022-01-04 13:42] VITALS: BP 130/73; PULSE 87
[2022-01-04] MEDS: MIRTAZAPINE 15 MG TABLET (FP) PO SCH (17:28)
== END 2022-01-04 19:00 | disposition home or self-care (01) | DRG 552 ==
LOC: JER 06:07 → JERBED 14:06 → OBSVTOIN 14:06 → J7W 12-30 01:46
PROVIDERS: ADMIT Internal Medicine; ATTEND Internal Medicine
DX: M54.32 Sciatica, left side (principal); D75.81 Myelofibrosis; F41.9 Anxiety disorder, unspecified; F32.A Depression, unspecified; F20.9 Schizophrenia, unspecified; B19.20 Unspecified viral hepatitis C without hepatic coma; D53.9 Nutritional anemia, unspecified
CPT/HCPCS: 36415; 72131-TC; 72192-TC; 73502-TC-LT-FY; 80053; 82728; 83540; 83550; 85025; 85045; 93005; 93010; 93971-TC; 97116-GP; 99285-25; C9803-CS; J0475; U0003; U0005

== ENCOUNTER 2023-03-16 14:45 | Inpatient (IN) | payer OTHER ==
[2023-03-16 17:59] LABS: BASO % 1.1 % (0-2.0); EOS % 0.3 % (0-4.5); HEMATOCRIT 25.6 % (32.4-45.2); HEMOGLOBIN 8.5 GM/dL (10.7-15.3); LYMPH % 11.6 % (8-40); MCH 32.5 pg (25.7-33.7); MEAN CELL VOLUME 98.3 fl (80-96); MEAN PLT VOLUME 7.5 fl (7.5-11.1); MONO % 14.4 % (3.8-10.2); NEUT % 72.6 % (42.8-82.8); PLATELET COUNT 482 10^3/uL (134-434); RDW 18.8 % (11.6-15.6); WHITE BLOOD COUNT 9.2 K/mm3 (4.0-10.0)
[2023-03-16 18:06] LABS: INR 1.34 (0.83-1.09); PROTHROMBIN TIME (PATIENT) 15.5 SEC (9.7-13.0)
[2023-03-16 18:09] LABS: ACTIVATED PTT 31.5 SECONDS (25.2-36.5)
[2023-03-16 18:20] LABS: POTASSIUM 3.6 mmol/L (3.5-5.1)
[2023-03-16 18:23] LABS: CALCIUM 8.6 mg/dL (8.5-10.1)
[2023-03-16 18:24] LABS: ALBUMIN 3.2 g/dl (3.4-5.0); BLOOD UREA NITROGEN 11.8 mg/dL (7-18)
[2023-03-16 18:27] LABS: CREATININE 0.9 mg/dL (0.55-1.3)
[2023-03-16 18:28] LABS: BILIRUBIN,TOTAL 0.4 mg/dL (0.2-1)
[2023-03-16 18:29] LABS: TOT PROT 6.4 g/dl (6.4-8.2)
[2023-03-16] MEDS ORDERED: GABAPENTIN 400 MG CAPSULE ONE (23:22)
[2023-03-16] MEDS ORDERED: APIXABAN 5 MG TABLET ONE (23:22)
[2023-03-16] MEDS: GABAPENTIN 400 MG CAPSULE PO SCH (23:29)
[2023-03-16] MEDS: APIXABAN 5 MG TABLET PO SCH (23:29)
[2023-03-17 01:29] VITALS: BMI 27.6
[2023-03-17 03:33] LABS: EPI CELLS 25 /uL (0-25.1); HYALINE CASTS 3 /uL (0-3.1); URINE APPEARANCE CLOUDY; URINE BACTERIA >9,000 /uL (0-1359); URINE BILIRUBIN NEGATIVE (NEGATIVE); URINE COLOR YELLOW; URINE GLUCOSE (UA) NEGATIVE (NEGATIVE); URINE KETONE 3+ (NEGATIVE); URINE LEUK ESTERASE 2+ (NEGATIVE); URINE NITRITE POSITIVE (NEGATIVE); URINE PROTEIN 3+ (NEGATIVE); URINE RBC 172 /uL (0-23.9); URINE WBC 8084 /uL (0-25.8)
[2023-03-17] MEDS: GABAPENTIN 400 MG CAPSULE PO SCH ×3 (05:53→22:21)
[2023-03-17] MEDS: DIVALPROEX SODIUM 250 MG TABLET E.C. PO SCH ×3 (05:53→22:21)
[2023-03-17] MEDS ORDERED: NICOTINE 21 MG/24 HOURS TOPICAL PATCH TD SCH (10:00)
[2023-03-17] MEDS ORDERED: PATIENT'S OWN MEDICATION (NON-FORMULARY) (Oxycodone Hcl/Acetaminophen [Oxycodone-Acetamino PO SCH (10:00)
[2023-03-17] MEDS ORDERED: PATIENT'S OWN MEDICATION (NON-FORMULARY) (Linaclotide [Linzess] 145 MCG Capsule) PO SCH ×2 (10:00→15:45)
[2023-03-17] MEDS ORDERED: RUXOLITINIB PHOSPHATE PO SCH ×2 (10:00→15:45)
[2023-03-17 10:08] LABS: HEMATOCRIT 24.3 % (32.4-45.2); HEMOGLOBIN 8.1 GM/dL (10.7-15.3); MCH 32.6 pg (25.7-33.7); MCHC 33.1 g/dl (32.0-36.0); MEAN CELL VOLUME 98.3 fl (80-96); MEAN PLT VOLUME 7.6 fl (7.5-11.1); PLATELET COUNT 440 10^3/uL (134-434); RBC 2.47 M/mm3 (3.60-5.2); RDW 18.8 % (11.6-15.6); WHITE BLOOD COUNT 8.7 K/mm3 (4.0-10.0)
[2023-03-17] MEDS: APIXABAN 5 MG TABLET PO SCH ×2 (10:20→22:21)
[2023-03-17] MEDS: POLYETHYLENE GLYCOL (HEALTHYLAX) 3350 17 GM PACKET PO SCH (10:21)
[2023-03-17] MEDS: LURASIDONE HCL 20 MG TABLET PO SCH (10:21)
[2023-03-17] MEDS: FERROUS SO4 325 MG TABLET (FP) PO SCH ×2 (10:21→17:19)
[2023-03-17] MEDS: NICOTINE 21 MG/24 HOURS TOPICAL PATCH TD SCH (10:22)
[2023-03-17] MEDS: PANTOPRAZOLE 40 MG TABLET PO SCH (10:22)
[2023-03-17] MEDS: ASCORBIC ACID 500 MG TABLET (FP) PO SCH (10:22)
[2023-03-17] MEDS: METHYL SALICYLATE/MENTHOL OINT 30 GM TUBE TP SCH ×2 (10:23→22:29)
[2023-03-17 10:37] LABS: CALCIUM 8.7 mg/dL (8.5-10.1)
[2023-03-17 10:38] LABS: BLOOD UREA NITROGEN 12.5 mg/dL (7-18)
[2023-03-17 10:41] LABS: CREATININE 0.7 mg/dL (0.55-1.3)
[2023-03-17 10:43] LABS: BILIRUBIN,TOTAL 0.4 mg/dL (0.2-1)
[2023-03-17] MEDS: oxyCODONE HCL 5 MG TABLET PO PRN ×2 (12:18→20:25)
[2023-03-17] MEDS: MEROPENEM 1 GM in DEXTROSE 5%-WATER 100 ML IVPB SCH ×2 (17:18→18:55)
[2023-03-17] MEDS: ACETAMINOPHEN 325 MG TABLET (FP) PO PRN (20:28)
[2023-03-17] MEDS: SENNOSIDES 8.6MG TABLET (FP) PO SCH (22:20)
[2023-03-17] MEDS: MELATONIN 5 MG TABLETS PO SCH (22:21)
[2023-03-18] MEDS: MEROPENEM 1 GM in DEXTROSE 5%-WATER 100 ML IVPB SCH ×3 (02:47→17:20)
[2023-03-18] MEDS: DIVALPROEX SODIUM 250 MG TABLET E.C. PO SCH ×3 (05:24→22:30)
[2023-03-18] MEDS: GABAPENTIN 400 MG CAPSULE PO SCH (05:24)
[2023-03-18] MEDS: FERROUS SO4 325 MG TABLET (FP) PO SCH ×2 (08:46→17:14)
[2023-03-18] MEDS: APIXABAN 5 MG TABLET PO SCH ×2 (09:46→22:30)
[2023-03-18] MEDS: LURASIDONE HCL 20 MG TABLET PO SCH (09:46)
[2023-03-18] MEDS: ASCORBIC ACID 500 MG TABLET (FP) PO SCH (09:46)
[2023-03-18] MEDS: POLYETHYLENE GLYCOL (HEALTHYLAX) 3350 17 GM PACKET PO SCH (09:47)
[2023-03-18] MEDS: PANTOPRAZOLE 40 MG TABLET PO SCH (09:47)
[2023-03-18] MEDS: NICOTINE 21 MG/24 HOURS TOPICAL PATCH TD SCH (09:47)
[2023-03-18] MEDS: METHYL SALICYLATE/MENTHOL OINT 30 GM TUBE TP SCH ×2 (09:56→22:30)
[2023-03-18] MEDS ORDERED: MEROPENEM 1 GM VIAL (RESTRICTED TO ID) IVPB ONE (10:36)
[2023-03-18] MEDS ORDERED: GABAPENTIN 400 MG CAPSULE PO SCH (12:04)
[2023-03-18] MEDS: ACETAMINOPHEN 325 MG TABLET (FP) PO PRN (12:52)
[2023-03-18] MEDS: oxyCODONE HCL 5 MG TABLET PO PRN (18:41)
[2023-03-18] MEDS: GABAPENTIN 300 MG CAPSULE PO SCH (22:30)
[2023-03-18] MEDS: MELATONIN 5 MG TABLETS PO SCH (22:30)
[2023-03-18] MEDS: SENNOSIDES 8.6MG TABLET (FP) PO SCH (22:30)
[2023-03-19] MEDS: MEROPENEM 1 GM in DEXTROSE 5%-WATER 100 ML IVPB SCH ×2 (03:21→11:19)
[2023-03-19] MEDS: oxyCODONE HCL 5 MG TABLET PO PRN (04:10)
[2023-03-19] MEDS: ACETAMINOPHEN 325 MG TABLET (FP) PO PRN (04:10)
[2023-03-19] MEDS: GABAPENTIN 300 MG CAPSULE PO SCH ×3 (07:06→22:12)
[2023-03-19] MEDS: DIVALPROEX SODIUM 250 MG TABLET E.C. PO SCH ×3 (07:06→21:36)
[2023-03-19 09:44] LABS: HEMATOCRIT 28.9 % (32.4-45.2); HEMOGLOBIN 9.5 GM/dL (10.7-15.3); MCH 32.1 pg (25.7-33.7); MCHC 32.9 g/dl (32.0-36.0); MEAN CELL VOLUME 97.5 fl (80-96); MEAN PLT VOLUME 7.4 fl (7.5-11.1); PLATELET COUNT 402 10^3/uL (134-434); RBC 2.96 M/mm3 (3.60-5.2); RDW 19.1 % (11.6-15.6)
[2023-03-19 10:07] LABS: POTASSIUM 4.2 mmol/L (3.5-5.1)
[2023-03-19 10:09] LABS: CALCIUM 8.7 mg/dL (8.5-10.1)
[2023-03-19 10:10] LABS: ALBUMIN 2.9 g/dl (3.4-5.0); MAGNESIUM 2.3 mg/dL (1.8-2.4)
[2023-03-19 10:14] LABS: BLOOD UREA NITROGEN 13.6 mg/dL (7-18); CREATININE 0.8 mg/dL (0.55-1.3); PHOSPHOROUS 4.4 mg/dL (2.5-4.9)
[2023-03-19 10:15] LABS: BILIRUBIN,TOTAL 0.3 mg/dL (0.2-1)
[2023-03-19 10:20] LABS: ANISOCYTOSIS 1+; MACROCYTOSIS 1+
[2023-03-19] MEDS: PANTOPRAZOLE 40 MG TABLET PO SCH (11:17)
[2023-03-19] MEDS: ASCORBIC ACID 500 MG TABLET (FP) PO SCH (11:17)
[2023-03-19] MEDS: LURASIDONE HCL 20 MG TABLET PO SCH (11:17)
[2023-03-19] MEDS: APIXABAN 5 MG TABLET PO SCH ×2 (11:17→22:12)
[2023-03-19] MEDS: FERROUS SO4 325 MG TABLET (FP) PO SCH ×2 (11:17→17:53)
[2023-03-19] MEDS: NICOTINE 21 MG/24 HOURS TOPICAL PATCH TD SCH (11:18)
[2023-03-19] MEDS: POLYETHYLENE GLYCOL (HEALTHYLAX) 3350 17 GM PACKET PO SCH (11:18)
[2023-03-19] MEDS: METHYL SALICYLATE/MENTHOL OINT 30 GM TUBE TP SCH ×2 (11:19→22:12)
[2023-03-19] MEDS: SULFAMETHOXAZOLE/TRIMETHOPRIM 800MG/160MG D.S. TABLET PO SCH ×3 (12:08→22:12)
[2023-03-19] MEDS: SENNOSIDES 8.6MG TABLET (FP) PO SCH (22:11)
[2023-03-20] MEDS: DIVALPROEX SODIUM 250 MG TABLET E.C. PO SCH ×3 (06:35→21:41)
[2023-03-20] MEDS: GABAPENTIN 300 MG CAPSULE PO SCH ×3 (06:35→21:41)
[2023-03-20] MEDS: FERROUS SO4 325 MG TABLET (FP) PO SCH ×3 (08:08→17:25)
[2023-03-20] MEDS: APIXABAN 5 MG TABLET PO SCH ×2 (09:20→21:41)
[2023-03-20] MEDS: POLYETHYLENE GLYCOL (HEALTHYLAX) 3350 17 GM PACKET PO SCH ×2 (09:20→09:31)
[2023-03-20] MEDS: SULFAMETHOXAZOLE/TRIMETHOPRIM 800MG/160MG D.S. TABLET PO SCH ×2 (09:20→21:41)
[2023-03-20] MEDS: PANTOPRAZOLE 40 MG TABLET PO SCH (09:21)
[2023-03-20] MEDS: LURASIDONE HCL 20 MG TABLET PO SCH (09:21)
[2023-03-20] MEDS: ASCORBIC ACID 500 MG TABLET (FP) PO SCH (09:21)
[2023-03-20] MEDS: NICOTINE 21 MG/24 HOURS TOPICAL PATCH TD SCH (09:21)
[2023-03-20] MEDS: METHYL SALICYLATE/MENTHOL OINT 30 GM TUBE TP SCH ×2 (09:22→21:42)
[2023-03-20] MEDS: ACETAMINOPHEN 325 MG TABLET (FP) PO PRN ×3 (09:22→21:41)
[2023-03-20 10:19] LABS: POTASSIUM 4.7 mmol/L (3.5-5.1)
[2023-03-20 10:20] LABS: CALCIUM 8.6 mg/dL (8.5-10.1)
[2023-03-20 10:22] LABS: BLOOD UREA NITROGEN 13.4 mg/dL (7-18)
[2023-03-20 10:24] LABS: CREATININE 0.8 mg/dL (0.55-1.3)
[2023-03-20] MEDS: SENNOSIDES 8.6MG TABLET (FP) PO SCH (21:40)
[2023-03-21] MEDS: GABAPENTIN 300 MG CAPSULE PO SCH ×3 (07:03→21:09)
[2023-03-21] MEDS: DIVALPROEX SODIUM 250 MG TABLET E.C. PO SCH ×3 (07:04→21:09)
[2023-03-21] MEDS: FERROUS SO4 325 MG TABLET (FP) PO SCH ×3 (08:21→17:04)
[2023-03-21] MEDS: APIXABAN 5 MG TABLET PO SCH ×2 (10:38→21:09)
[2023-03-21] MEDS: ASCORBIC ACID 500 MG TABLET (FP) PO SCH (10:38)
[2023-03-21] MEDS: SULFAMETHOXAZOLE/TRIMETHOPRIM 800MG/160MG D.S. TABLET PO SCH (10:38)
[2023-03-21] MEDS: POLYETHYLENE GLYCOL (HEALTHYLAX) 3350 17 GM PACKET PO SCH (10:39)
[2023-03-21] MEDS: NICOTINE 21 MG/24 HOURS TOPICAL PATCH TD SCH (10:39)
[2023-03-21] MEDS: PANTOPRAZOLE 40 MG TABLET PO SCH (10:40)
[2023-03-21] MEDS: LURASIDONE HCL 20 MG TABLET PO SCH (10:43)
[2023-03-21] MEDS: METHYL SALICYLATE/MENTHOL OINT 30 GM TUBE TP SCH ×2 (10:46→21:09)
[2023-03-21 11:06] VITALS: RESP 18
[2023-03-21] MEDS: oxyCODONE HCL 5 MG TABLET PO PRN ×2 (11:55→17:56)
[2023-03-21] MEDS: SENNOSIDES 8.6MG TABLET (FP) PO SCH (21:09)
[2023-03-22] MEDS: oxyCODONE HCL 5 MG TABLET PO PRN ×4 (01:19→23:03)
[2023-03-22] MEDS: GABAPENTIN 300 MG CAPSULE PO SCH ×3 (05:36→21:29)
[2023-03-22] MEDS: DIVALPROEX SODIUM 250 MG TABLET E.C. PO SCH ×3 (05:36→21:29)
[2023-03-22] MEDS: FERROUS SO4 325 MG TABLET (FP) PO SCH ×2 (08:17→16:51)
[2023-03-22] MEDS: ASCORBIC ACID 500 MG TABLET (FP) PO SCH (10:16)
[2023-03-22] MEDS: PANTOPRAZOLE 40 MG TABLET PO SCH (10:16)
[2023-03-22] MEDS: APIXABAN 5 MG TABLET PO SCH ×2 (10:17→21:29)
[2023-03-22] MEDS: POLYETHYLENE GLYCOL (HEALTHYLAX) 3350 17 GM PACKET PO SCH (10:18)
[2023-03-22] MEDS: METHYL SALICYLATE/MENTHOL OINT 30 GM TUBE TP SCH ×2 (10:18→21:28)
[2023-03-22] MEDS: ACETAMINOPHEN 325 MG TABLET (FP) PO PRN (10:37)
[2023-03-22] MEDS: NICOTINE 21 MG/24 HOURS TOPICAL PATCH TD SCH (10:38)
[2023-03-22] MEDS: LURASIDONE HCL 20 MG TABLET PO SCH (12:23)
[2023-03-22] MEDS: SENNOSIDES 8.6MG TABLET (FP) PO SCH (21:29)
[2023-03-23] MEDS: DIVALPROEX SODIUM 250 MG TABLET E.C. PO SCH ×3 (06:18→21:26)
[2023-03-23] MEDS: GABAPENTIN 300 MG CAPSULE PO SCH ×3 (06:18→21:23)
[2023-03-23] MEDS: oxyCODONE HCL 5 MG TABLET PO PRN ×3 (06:23→18:16)
[2023-03-23] MEDS: POLYETHYLENE GLYCOL (HEALTHYLAX) 3350 17 GM PACKET PO SCH ×2 (10:00→11:13)
[2023-03-23] MEDS: FERROUS SO4 325 MG TABLET (FP) PO SCH ×3 (11:12→17:04)
[2023-03-23] MEDS: ASCORBIC ACID 500 MG TABLET (FP) PO SCH (11:12)
[2023-03-23] MEDS: NICOTINE 21 MG/24 HOURS TOPICAL PATCH TD SCH (11:12)
[2023-03-23] MEDS: PANTOPRAZOLE 40 MG TABLET PO SCH (11:12)
[2023-03-23] MEDS: LURASIDONE HCL 20 MG TABLET PO SCH (11:13)
[2023-03-23] MEDS: METHYL SALICYLATE/MENTHOL OINT 30 GM TUBE TP SCH ×2 (11:14→21:23)
[2023-03-23] MEDS: APIXABAN 5 MG TABLET PO SCH ×2 (11:15→21:23)
[2023-03-23] MEDS: SENNOSIDES 8.6MG TABLET (FP) PO SCH (21:23)
[2023-03-24] MEDS: oxyCODONE HCL 5 MG TABLET PO PRN ×3 (00:41→16:17)
[2023-03-24] MEDS: GABAPENTIN 300 MG CAPSULE PO SCH ×3 (06:18→22:00)
[2023-03-24] MEDS: DIVALPROEX SODIUM 250 MG TABLET E.C. PO SCH ×3 (06:18→22:00)
[2023-03-24] MEDS: POLYETHYLENE GLYCOL (HEALTHYLAX) 3350 17 GM PACKET PO SCH (09:11)
[2023-03-24] MEDS: NICOTINE 21 MG/24 HOURS TOPICAL PATCH TD SCH (09:11)
[2023-03-24] MEDS: ASCORBIC ACID 500 MG TABLET (FP) PO SCH (09:11)
[2023-03-24] MEDS: FERROUS SO4 325 MG TABLET (FP) PO SCH ×3 (09:11→23:40)
[2023-03-24] MEDS: PANTOPRAZOLE 40 MG TABLET PO SCH (09:11)
[2023-03-24] MEDS: APIXABAN 5 MG TABLET PO SCH ×2 (09:11→22:00)
[2023-03-24] MEDS: METHYL SALICYLATE/MENTHOL OINT 30 GM TUBE TP SCH ×2 (09:12→22:00)
[2023-03-24] MEDS: LURASIDONE HCL 20 MG TABLET PO SCH (09:14)
[2023-03-24] MEDS: SENNOSIDES 8.6MG TABLET (FP) PO SCH (22:00)
[2023-03-24] MEDS: ACETAMINOPHEN 325 MG TABLET (FP) PO PRN (22:29)
[2023-03-25] MEDS: oxyCODONE HCL 5 MG TABLET PO PRN ×2 (01:39→08:46)
[2023-03-25] MEDS: GABAPENTIN 300 MG CAPSULE PO SCH ×2 (05:47→14:25)
[2023-03-25] MEDS: DIVALPROEX SODIUM 250 MG TABLET E.C. PO SCH ×2 (05:48→14:25)
[2023-03-25] MEDS: FERROUS SO4 325 MG TABLET (FP) PO SCH (08:46)
[2023-03-25] MEDS: ASCORBIC ACID 500 MG TABLET (FP) PO SCH (09:32)
[2023-03-25] MEDS: APIXABAN 5 MG TABLET PO SCH (09:32)
[2023-03-25] MEDS: PANTOPRAZOLE 40 MG TABLET PO SCH (09:32)
[2023-03-25] MEDS: POLYETHYLENE GLYCOL (HEALTHYLAX) 3350 17 GM PACKET PO SCH (09:32)
[2023-03-25] MEDS: NICOTINE 21 MG/24 HOURS TOPICAL PATCH TD SCH (09:32)
[2023-03-25] MEDS: LURASIDONE HCL 20 MG TABLET PO SCH (09:33)
[2023-03-25] MEDS: METHYL SALICYLATE/MENTHOL OINT 30 GM TUBE TP SCH (09:34)
[2023-03-25] MEDS ORDERED: BISACODYL 5 MG TABLET.DR (FP) PO ONE (10:58)
[2023-03-25] MEDS ORDERED: SODIUM PHOSPHATE/NA BIPHOS 133 ML ENEMA RC ONE (11:56)
[2023-03-25 14:58] VITALS: BP 108/64; PULSE 82; TEMP 98.8
== END 2023-03-25 17:44 | DRG 689 ==
LOC: JER 14:45 → JERBED 16:03 → OBSVTOIN 22:57 → J6S 03-17 00:43 → UNDODISIN 03-17 15:39
PROVIDERS: ADMIT Internal Medicine; ATTEND Internal Medicine
DX: N39.0 Urinary tract infection, site not specified (principal); G92.8 Other toxic encephalopathy; D75.81 Myelofibrosis; M87.052 Idiopathic aseptic necrosis of left femur; F41.9 Anxiety disorder, unspecified; F20.9 Schizophrenia, unspecified; Z86.718 Personal history of other venous thrombosis and embolism; Z79.01 Long term (current) use of anticoagulants; J44.9 Chronic obstructive pulmonary disease, unspecified; F31.9 Bipolar disorder, unspecified; D64.9 Anemia, unspecified; B19.20 Unspecified viral hepatitis C without hepatic coma; M16.12 Unilateral primary osteoarthritis, left hip
CPT/HCPCS: 0241U-QW; 36415; 70450-TC; 71045-TC-FY; 73502-TC-LT-FY; 80048; 80053; 81003; 83735; 84100; 84484; 85025; 85027; 85379; 85610; 85651; 85730; 86038; 86140; 87086; 87186; 93005; 93010; 97116-GP; 97162-GP; 99285-25; G0378

== ENCOUNTER 2023-05-18 10:26 | Inpatient (IN) | payer OTHER ==
[2023-05-18] MEDS ORDERED: ACETAMINOPHEN 500 MG TABLET (FP) PO ONE (14:03)
[2023-05-18] MEDS ORDERED: ACETAMINOPHEN 325 MG TABLET (FP) ONE (15:28)
[2023-05-18] MEDS ORDERED: oxyCODONE HCL 5 MG TABLET PO ONE (15:37)
[2023-05-18] MEDS ORDERED: oxyCODONE HCL 5 MG TABLET ONE (15:49)
[2023-05-18] MEDS ORDERED: PATIENT'S OWN MEDICATION (NON-FORMULARY) (Oxycodone Hcl/Acetaminophen [Oxycodone-Acetamino PO PRN (17:05)
[2023-05-18] MEDS ORDERED: ACETAMINOPHEN 500 MG TABLET (FP) PO PRN (17:11)
[2023-05-18] MEDS ORDERED: ACETAMINOPHEN 325 MG TABLET (FP) PO PRN (17:14)
[2023-05-18 20:14] VITALS: BMI 29.1
[2023-05-18] MEDS ORDERED: PATIENT'S OWN MEDICATION (NON-FORMULARY) (Ferrous Sulfate [Ferrous Sulfate] 325 MG Tablet) PO SCH (22:00)
[2023-05-18] MEDS ORDERED: RUXOLITINIB PHOSPHATE PO SCH (22:00)
[2023-05-18] MEDS: oxyCODONE HCL 5 MG TABLET PO PRN (22:45)
[2023-05-18] MEDS: SENNOSIDES 8.6MG TABLET (FP) PO SCH ×2 (22:46→22:59)
[2023-05-18] MEDS: MELATONIN 5 MG TABLETS PO SCH (22:46)
[2023-05-18] MEDS: GABAPENTIN 300 MG CAPSULE PO SCH (22:46)
[2023-05-18] MEDS: FERROUS SO4 325 MG TABLET (FP) PO SCH (22:47)
[2023-05-18] MEDS: DIVALPROEX SODIUM 250 MG TABLET E.C. PO SCH (22:47)
[2023-05-18] MEDS: APIXABAN 5 MG TABLET PO SCH (22:47)
[2023-05-19] MEDS: DIVALPROEX SODIUM 250 MG TABLET E.C. PO SCH ×3 (05:55→21:08)
[2023-05-19] MEDS: oxyCODONE HCL 5 MG TABLET PO PRN ×3 (05:56→21:09)
[2023-05-19] MEDS: GABAPENTIN 300 MG CAPSULE PO SCH ×3 (05:56→21:07)
[2023-05-19] MEDS: FERROUS SO4 325 MG TABLET (FP) PO SCH ×2 (09:52→21:08)
[2023-05-19] MEDS: PANTOPRAZOLE 40 MG TABLET PO SCH (09:53)
[2023-05-19] MEDS: LURASIDONE HCL 20 MG TABLET PO SCH (09:54)
[2023-05-19] MEDS: APIXABAN 5 MG TABLET PO SCH ×2 (09:54→21:07)
[2023-05-19] MEDS: ASCORBIC ACID 500 MG TABLET (FP) PO SCH (09:54)
[2023-05-19] MEDS: POLYETHYLENE GLYCOL 3350 255 GM BTL PO SCH (09:55)
[2023-05-19] MEDS ORDERED: PATIENT'S OWN MEDICATION (NON-FORMULARY) (Ascorbic Acid [Vitamin C] 500 MG Capsule) PO SCH (10:00)
[2023-05-19] MEDS ORDERED: PATIENT'S OWN MEDICATION (NON-FORMULARY) (Melatonin [Melatonin] 10 MG Capsule) PO SCH (10:00)
[2023-05-19 21:06] LABS: BASO % 0.4 % (0-2.0); HEMATOCRIT 24.5 % (32.4-45.2); LYMPH % 15.4 % (8-40); MCH 32.7 pg (25.7-33.7); MCHC 32.6 g/dl (32.0-36.0); MEAN CELL VOLUME 100.2 fl (80-96); MEAN PLT VOLUME 8.2 fl (7.5-11.1); MONO % 7.9 % (3.8-10.2); NEUT % 75.3 % (42.8-82.8); PLATELET COUNT 392 10^3/uL (134-434); RBC 2.44 M/mm3 (3.60-5.2); RDW 22.2 % (11.6-15.6); WHITE BLOOD COUNT 7.3 K/mm3 (4.0-10.0)
[2023-05-19] MEDS: MELATONIN 5 MG TABLETS PO SCH (21:07)
[2023-05-19] MEDS: SENNOSIDES 8.6MG TABLET (FP) PO SCH (21:11)
[2023-05-19 21:23] LABS: POTASSIUM 4.9 mmol/L (3.5-5.1)
[2023-05-19 21:25] LABS: ALBUMIN 2.7 g/dl (3.4-5.0); BLOOD UREA NITROGEN 15.5 mg/dL (7-18); CALCIUM 7.9 mg/dL (8.5-10.1)
[2023-05-19 21:28] LABS: CREATININE 0.9 mg/dL (0.55-1.3)
[2023-05-19 21:30] LABS: BILIRUBIN,TOTAL 0.4 mg/dL (0.2-1); TOT PROT 5.7 g/dl (6.4-8.2)
[2023-05-19 22:08] LABS: ANISOCYTOSIS 3+; MACROCYTOSIS 0
[2023-05-20] MEDS: oxyCODONE HCL 5 MG TABLET PO PRN ×3 (05:19→21:24)
[2023-05-20] MEDS: GABAPENTIN 300 MG CAPSULE PO SCH ×3 (05:20→21:25)
[2023-05-20] MEDS: DIVALPROEX SODIUM 250 MG TABLET E.C. PO SCH ×3 (05:20→21:25)
[2023-05-20] MEDS: ASCORBIC ACID 500 MG TABLET (FP) PO SCH (09:12)
[2023-05-20] MEDS: PANTOPRAZOLE 40 MG TABLET PO SCH (09:12)
[2023-05-20] MEDS: APIXABAN 5 MG TABLET PO SCH ×2 (09:13→21:23)
[2023-05-20] MEDS: POLYETHYLENE GLYCOL 3350 255 GM BTL PO SCH (09:13)
[2023-05-20] MEDS: LURASIDONE HCL 20 MG TABLET PO SCH (09:13)
[2023-05-20] MEDS: FERROUS SO4 325 MG TABLET (FP) PO SCH ×2 (09:13→21:24)
[2023-05-20] MEDS: SENNOSIDES 8.6MG TABLET (FP) PO SCH (21:24)
[2023-05-20] MEDS: MELATONIN 5 MG TABLETS PO SCH (21:25)
[2023-05-21] MEDS: GABAPENTIN 300 MG CAPSULE PO SCH ×3 (05:30→21:49)
[2023-05-21] MEDS: DIVALPROEX SODIUM 250 MG TABLET E.C. PO SCH ×3 (05:30→21:49)
[2023-05-21] MEDS: FERROUS SO4 325 MG TABLET (FP) PO SCH ×2 (10:52→21:49)
[2023-05-21] MEDS: ASCORBIC ACID 500 MG TABLET (FP) PO SCH (10:52)
[2023-05-21] MEDS: APIXABAN 5 MG TABLET PO SCH ×2 (10:52→21:47)
[2023-05-21] MEDS: PANTOPRAZOLE 40 MG TABLET PO SCH (10:52)
[2023-05-21] MEDS: oxyCODONE HCL 5 MG TABLET PO PRN ×2 (11:00→21:51)
[2023-05-21] MEDS: LURASIDONE HCL 20 MG TABLET PO SCH (11:03)
[2023-05-21] MEDS: POLYETHYLENE GLYCOL (HEALTHYLAX) 3350 17 GM PACKET PO SCH (11:25)
[2023-05-21] MEDS: POLYETHYLENE GLYCOL 3350 255 GM BTL PO SCH (11:32)
[2023-05-21] MEDS: MELATONIN 5 MG TABLETS PO SCH (21:47)
[2023-05-21] MEDS: SENNOSIDES 8.6MG TABLET (FP) PO SCH ×2 (21:47→21:58)
[2023-05-22] MEDS: GABAPENTIN 300 MG CAPSULE PO SCH ×3 (05:56→21:15)
[2023-05-22] MEDS: DIVALPROEX SODIUM 250 MG TABLET E.C. PO SCH ×3 (05:56→21:15)
[2023-05-22] MEDS: LURASIDONE HCL 20 MG TABLET PO SCH (09:23)
[2023-05-22] MEDS: PANTOPRAZOLE 40 MG TABLET PO SCH (09:23)
[2023-05-22] MEDS: POLYETHYLENE GLYCOL (HEALTHYLAX) 3350 17 GM PACKET PO SCH (09:23)
[2023-05-22] MEDS: APIXABAN 5 MG TABLET PO SCH ×2 (09:23→21:15)
[2023-05-22] MEDS: FERROUS SO4 325 MG TABLET (FP) PO SCH ×3 (09:23→21:20)
[2023-05-22] MEDS: ASCORBIC ACID 500 MG TABLET (FP) PO SCH (09:23)
[2023-05-22] MEDS: oxyCODONE HCL 5 MG TABLET PO PRN ×2 (09:24→21:14)
[2023-05-22] MEDS: MELATONIN 5 MG TABLETS PO SCH (21:15)
[2023-05-22] MEDS: SENNOSIDES 8.6MG TABLET (FP) PO SCH (21:18)
[2023-05-22 21:32] VITALS: BP 112/67; PULSE 75; RESP 18; TEMP 98.3
== END 2023-05-22 21:44 | DRG 563 ==
LOC: JER 10:26 → JERBED 15:37 → OBSVTOIN 17:07 → J5S 18:48
PROVIDERS: ADMIT Internal Medicine; ATTEND Internal Medicine
DX: S93.402A Sprain of unspecified ligament of left ankle, initial encounter (principal); F31.9 Bipolar disorder, unspecified; J44.9 Chronic obstructive pulmonary disease, unspecified; F20.9 Schizophrenia, unspecified; D46.9 Myelodysplastic syndrome, unspecified; M25.462 Effusion, left knee; S80.02XA Contusion of left knee, initial encounter; W19.XXXA Unspecified fall, initial encounter; Y93.89 Activity, other specified; Y99.8 Other external cause status; Y92.89 Other specified places as the place of occurrence of the external cause
CPT/HCPCS: 36415; 73562-TC-LT-FY; 73610-TC-LT-FY; 73630-TC-LT; 80053; 85025; 87635; 97116-GP; 97162-GP; 99285-25; G0378